=== PATIENT | female | born 1965 | race Caucasian/White ===

== ENCOUNTER 2018-02-21 12:30 | Emergency (ER) | payer MEDICARE, OTHER ==
[2018-02-21] MEDS ORDERED: Sodium Chloride 0.9% 10 ML Syringe FLUSH PRN (13:42)
[2018-02-21] MEDS ORDERED: Ondansetron 4 MG/2 ML SDV IVPUSH ONE (13:43)
[2018-02-21] MEDS ORDERED: Furosemide 20 MG/2 ML VIAL IVPUSH ONE (15:22)
--- NOTE | 2018-02-21 15:51 | EDM.PDOC ---
ED HPI GENERAL MEDICAL PROBLEM - General Chief Complaint: General Stated Complaint: LEGS AND FEET SWOLLEN Time Seen by Provider: 02/21/18 13:10 Source of Information: Reports: Patient History Limitations: Reports: No Limitations - History of Present Illness INITIAL COMMENTS - FREE TEXT/NARRATIVE: 52-year-old female presents for evaluation and treatment of swelling to the bilateral lower legs and feet. Sounds as if has been going on for several weeks but last night felt that it was significantly worse. Patient was seen in the ER in December. Sent to [facility]. She had a paracentesis done. Reports she recently had a liver biopsy done. She's not scheduled see gastroenterology at this point. She did see her primary care provider on , states her primary care provider did not address her edema. patient reports that it is hard to catch her breath due to the excessive fluid in her abdomen. She reports associated symptoms of nausea but no vomiting. No chest pain. Primary care provider is Flakita Rodriguez. - Related Data Allergies Allergy/AdvReac Type Severity Reaction Status Date / Time aspirin Allergy Cannot Verified 02/21/18 12:43 Remember ibuprofen Allergy Anaphylactic Verified 02/21/18 12:43 Shock Home Meds: Home Meds Amitriptyline [Elavil] 75 mg PO BEDTIME 01/04/18 [History] Baclofen 10 mg PO BID 01/04/18 [History] Cyclobenzaprine [Flexeril] 10 mg PO TID PRN 01/04/18 [History] Gabapentin [Neurontin] 800 mg PO TID 01/04/18 [History] Sertraline [Zoloft] 100 mg PO DAILY 01/04/18 [History] oxyCODONE 5 mg PO Q4HR PRN 01/04/18 [History] Furosemide [Lasix] 20 mg PO DAILY #7 tab 02/21/18 [Rx] Potassium Chloride 10 meq PO DAILY #7 capsule.er 02/21/18 [Rx] Rifaximin [Xifaxan] 1 tab PO BID 02/21/18 [History] amLODIPine Besylate [Amlodipine Besylate] 10 mg PO DAILY 02/21/18 [History] traMADol HCl [Tramadol HCl] 50 mg PO Q6H PRN 02/21/18 [History] Past Medical History Cardiovascular History: Reports: Hypertension Gastrointestinal History: Reports: Cirrhosis, Other (See Below) Other Gastrointestinal History: ascites 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 (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 Below) Other SCREEN PRINTING PASTER History: tubal ligation Musculoskeletal History: Reports: Other (See Below) Other Musculoskeletal History: cervical stenosis of spinal canal Psychiatric History: Reports: Depression, PTSD - Past Surgical History GI Surgical History: Reports: Abdominal paracentesis, Colonoscopy Musculoskeletal Surgical History: Reports: Other (See Below) Other Musculoskeletal Surgeries/Procedures:: ankle fx surgery Social & Family History - Family History Family Medical History: Noncontributory - Tobacco Use Smoking Status *Q: Current Some Day Smoker Years of Tobacco use: 10 Packs/Tins Daily: 0.2 - Caffeine Use Caffeine Use: Reports: Other - Recreational Drug Use Recreational Drug Use: No ED ROS GENERAL - Review of Systems Review Of Systems: See Below Respiratory: Reports: Shortness of Breath (due to asicites) Cardiovascular: Reports: Edema. Denies: Chest Pain GI/Abdominal: Reports: Abdominal Pain (increased abdominal girth), Nausea. Denies: Vomiting Musculoskeletal: Reports: Leg Pain (bilateral wiht associated swelling) Skin: Denies: Erythema ED EXAM, GENERAL - Physical Exam Exam: See Below Exam Limited By: No Limitations General Appearance: Alert, WD/WN, No Apparent Distress, Obese Respiratory/Chest: No Respiratory Distress, Lungs Clear, Normal Breath Sounds Cardiovascular: Normal Peripheral Pulses, Regular Rate, Rhythm, No Murmur Peripheral Pulses: 3+: Posterior Tibial (L), Posterior Tibial (R), Dorsalis Pedis (L), Dorsalis Pedis (R) GI/Abdominal: Normal Bowel Sounds, Soft, Other (asicites present) Extremities: Normal Capillary Refill, Pedal Edema (2+ bilateral pitting edema ) , Other (reports tenderness to light palpation to the bilteral lower legs). No : Yoly's Sign, Increased Warmth Neurological: Alert, Oriented, Normal Cognition, Normal Gait Psychiatric: Normal Affect, Normal Mood Skin Exam: Warm, Dry, Normal Color. No: Ecchymosis, Erythema EKG INTERPRETATION EKG Date: 02/21/18 Time: 13:47 Rhythm: NSR Rate (Beats/Min): 70 Union: Normal P-Wave: Present QRS: Normal ST-T: Normal QT: Prolonged EKG Interpretation Comments: Normal sinus rhythm with a rate of 70 bpm. Prolonged QT with QTC of 538. No acute changes. Reviewed by myself and Dr. Madrid. Course - Vital Signs Last Recorded V/S: Last Vital Signs Temp 99 F 02/21/18 12:30 Pulse 84 02/21/18 15:53 Resp 18 02/21/18 15:53 BP 144/73 H 02/21/18 15:53 Pulse Ox 97 02/21/18 15:53 - Orders/Labs/Meds Labs: Laboratory Tests 02/21/18 02/21/18 02/21/18 Range/Units 13:55 13:55 13:55 WBC 3.30 L (3.98-10.04) K/mm3 RBC 4.81 (3.98-5.22) M/mm3 Hgb 14.1 (11.2-15.7) gm/L Hct 42.5 (34.1-44.9) % MCV 88.4 (79.4-94.8) fl MCH 29.3 (25.6-32.2) pg MCHC 33.2 (32.2-35.5) g/dl RDW Std Deviation 50.8 H (36.4-46.3) fL Plt Count 162 L (182-369) K/mm3 MPV 9.4 (9.4-12.3) fl Neut % (Auto) 45.2 (34.0-71.1) % Lymph % (Auto) 43.0 (19.3-51.7) % Colbert % (Auto) 11.8 (4.7-12.5) % Eos % (Auto) 0 L (0.7-5.8) Baso % (Auto) 0.0 L (0.1-1.2) % Neut # (Auto) 1.49 L (1.56-6.13) K/mm3 Lymph # (Auto) 1.42 (1.18-3.74) K/mm3 Colbert # (Auto) 0.39 H (0.24-0.36) K/mm3 Eos # (Auto) 0.00 L (0.04-0.36) K/mm3 Baso # (Auto) 0.00 L (0.01-0.08) K/mm3 PT (9.5-12.1) SECONDS INR APTT (24-31) SECONDS Sodium 138 (136-145) mEq/L Potassium 3.7 (3.5-5.1) mEq/L Chloride 105 (98-107) mEq/L Carbon Dioxide 29 (21-32) mEq/L Anion Gap 7.7 (5-15) BUN 6 L (7-18) mg/dL Creatinine 0.8 (0.55-1.02) mg/dL Est Cr Clr Drug Dosing 90.90 mL/min Estimated GFR (MDRD) > 60 (>60) mL/min BUN/Creatinine Ratio 7.5 L (14-18) Glucose 132 H (74-106) mg/dL Calcium 8.8 (8.5-10.1) mg/dL Magnesium 2.1 (1.8-2.4) mg/dl Total Bilirubin 1.0 (0.2-1.0) mg/dL AST 55 H (15-37) U/L ALT 36 (14-59) U/L Alkaline Phosphatase 201 H (46-116) U/L NT-Pro-B Natriuret Pep 62 (0-125) pg/mL Total Protein 7.7 (6.4-8.2) g/dl Albumin 2.9 L (3.4-5.0) g/dl Globulin 4.8 gm/dL Albumin/Globulin Ratio 0.6 L (1-2) 02/21/18 Range/Units 13:55 WBC (3.98-10.04) K/mm3 RBC (3.98-5.22) M/mm3 Hgb (11.2-15.7) gm/L Hct (34.1-44.9) % MCV (79.4-94.8) fl MCH (25.6-32.2) pg MCHC (32.2-35.5) g/dl RDW Std Deviation (36.4-46.3) fL Plt Count (182-369) K/mm3 MPV (9.4-12.3) fl Neut % (Auto) (34.0-71.1) % Lymph % (Auto) (19.3-51.7) % Colbert % (Auto) (4.7-12.5) % Eos % (Auto) (0.7-5.8) Baso % (Auto) (0.1-1.2) % Neut # (Auto) (1.56-6.13) K/mm3 Lymph # (Auto) (1.18-3.74) K/mm3 Colbert # (Auto) (0.24-0.36) K/mm3 Eos # (Auto) (0.04-0.36) K/mm3 Baso # (Auto) (0.01-0.08) K/mm3 PT 13.9 H (9.5-12.1) SECONDS INR 1.28 APTT 36 H (24-31) SECONDS Sodium (136-145) mEq/L Potassium (3.5-5.1) mEq/L Chloride (98-107) mEq/L Carbon Dioxide (21-32) mEq/L Anion Gap (5-15) BUN (7-18) mg/dL Creatinine (0.55-1.02) mg/dL Est Cr Clr Drug Dosing mL/min Estimated GFR (MDRD) (>60) mL/min BUN/Creatinine Ratio (14-18) Glucose (74-106) mg/dL Calcium (8.5-10.1) mg/dL Magnesium (1.8-2.4) mg/dl Total Bilirubin (0.2-1.0) mg/dL AST (15-37) U/L ALT (14-59) U/L Alkaline Phosphatase (46-116) U/L NT-Pro-B Natriuret Pep (0-125) pg/mL Total Protein (6.4-8.2) g/dl Albumin (3.4-5.0) g/dl Globulin gm/dL Albumin/Globulin Ratio (1-2) Meds: Medications Discontinued Medications Generic Name Dose Route Start Last Admin Trade Name Freq PRN Reason Stop Dose Admin Furosemide 20 mg 02/21/18 15:22 02/21/18 15:32 Lasix IVPUSH 02/21/18 15:23 20 mg ONETIME ONE Administration Ondansetron HCl 4 mg 02/21/18 13:43 02/21/18 13:57 Zofran IVPUSH 02/21/18 13:44 4 mg ONETIME ONE Administration Sodium Chloride 10 ml 02/21/18 13:42 02/21/18 13:57 Saline Flush FLUSH 10 ml ASDIRECTED PRN Administration Keep Vein Open - Radiology Interpretation Free Text/Narrative:: 1 view chest x-ray shows mild congestion. Slight cardiomegaly. No acute intrathoracic process. Ultrasound of the bilateral lower legs per [facility] is negative for DVT. - Re-Assessments/Exams Free Text/Narrative Re-Assessment/Exam: 02/21/18 15:46 Reviewed the labs and imaging with the patient. Will start on low dose lasix with close follow-up in the clinic. Edema primarily felt to be more related to liver failure but she also likely has a component of heart failure. Unable to obtain BNP tonight as analyzer is down. Will discharge home. Discharge instructions as documented. Departure - Departure Time of Disposition: 15:47 Disposition: Home, Self-Care 01 Condition: Fair Clinical Impression: Edema - Discharge Information *PRESCRIPTION DRUG MONITORING PROGRAM REVIEWED*: No *COPY OF PRESCRIPTION DRUG MONITORING REPORT IN PATIENT ADELITA: No Prescriptions: Furosemide [Lasix] 20 mg PO DAILY #7 tab Potassium Chloride 10 meq PO DAILY #7 capsule.er Instructions: Edema Referrals: Nova Rodriguez NP [Primary Care Provider] - Forms: ED Department Discharge Additional Instructions: Follow-up with PCP this week for a recheck of your symptoms. Recommend seeing surgery to discuss scheduled paracentesis. Recommend Dr. Jang at [place]. Call [phone] to schedule with her. Lasix 1 tab PO daily. Potassium 1 tab PO daily. Elevate your legs as much as you are able to. Recommend compression stockings or an ice bandage to help with the edema. Please return to the ER should your symptoms change or worsen.
--- NOTE | 2018-02-22 17:00 | US ---
Bilateral lower extremity deep venous ultrasound: Duplex and color flow imaging was obtained of the right and left common femoral, proximal greater saphenous, superficial femoral, popliteal, posterior tibial and peroneal veins. Comparison: No prior venous exam. Findings: Mild subcutaneous edema is seen within the left lower extremity. This causes the left peroneal vein not to be well seen. Other veins show normal phasic flow, augmentation and compression. Impression: 1. Incidental subcutaneous edema as noted above. 2. No evidence of deep venous thrombosis within the right or left lower extremity. Diagnostic code #2 I agree with preliminary report from [facility], finalized on 02/21/18, 4:03 PM Central Time
--- NOTE | 2018-02-22 17:00 | CR ---
Chest: Portable view of the chest was obtained. Comparison: Prior chest x-ray of 01/04/18. Heart size is normal. Tortuous thoracic aorta is seen. Lung markings are minimally increased which appear stable. No acute parenchymal change is seen. Scoliosis is noted within the spine. Impression: 1. Incidental findings. Nothing acute is appreciated on portable chest x-ray. Diagnostic code #2
== END 2018-02-21 15:57 | disposition home or self-care (01) ==
LOC: JD.ED 12:30
DX: R60.9 Edema, unspecified (principal); F17.210 Nicotine dependence, cigarettes, uncomplicated; I10 Essential (primary) hypertension; F32.9 Major depressive disorder, single episode, unspecified; Z79.899 Other long term (current) drug therapy; Z88.6 Allergy status to analgesic agent
CPT/HCPCS: 36415; 71045; 80053; 83735; 83880; 85025; 85610; 85730; 93005; 93970; 96374; 96375; 99285; A9270; J2405; 93010; 99284

== ENCOUNTER 2018-04-06 13:34 | Emergency (ER) | payer MEDICARE, OTHER ==
[2018-04-06] MEDS ORDERED: Sodium Chloride 0.9% 10 ML Syringe FLUSH PRN (14:01)
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
[2018-04-06] MEDS ORDERED: Metoclopramide 10 MG/2 ML SDV IVPUSH ONE (14:15)
[2018-04-06] MEDS ORDERED: HYDROmorphone 1 MG/ML Syringe IVPUSH ONE (14:16)
[2018-04-06] MEDS ORDERED: fentaNYL 100 MCG/2 ML SDV IVPUSH ONE (14:29)
[2018-04-06] MEDS ORDERED: Midazolam 1 MG/ML 2 ML SDV IVPUSH ONE (14:29)
[2018-04-06] MEDS ORDERED: Lidocaine 1% with EPINEPHrine 1:100,000 20 ML MDV INJECT ONE (14:48)
--- NOTE | 2018-04-06 15:00 | CR ---
Chest: Portable view of the chest was obtained. Comparison: Prior chest x-ray of 02/21/18. Heart size and mediastinum are within normal limits for portable technique. Tortuous thoracic aorta is seen. Lungs are clear with no acute infiltrates. Scoliosis is noted within the spine. Impression: 1. Nothing acute is seen on portable chest x-ray. Diagnostic code #2
[2018-04-06] MEDS ORDERED: Albumin 25% 12.5 GM/50 ML BAG IV ONE (16:12)
== END 2018-04-06 17:30 | disposition home or self-care (01) ==
LOC: JD.ED 13:34
DX: K74.60 Unspecified cirrhosis of liver (principal); R18.8 Other ascites; I10 Essential (primary) hypertension; Z88.6 Allergy status to analgesic agent; F32.9 Major depressive disorder, single episode, unspecified; Z79.899 Other long term (current) drug therapy; Z98.51 Tubal ligation status
CPT/HCPCS: 36415; 49083; 71045; 80053; 83690; 83735; 83880; 85025; 85610; 85730; 86140; 96365; 96375; 99284; C1729; J1170; J2250; J2765; J3010; P9047; 49082

== ENCOUNTER 2018-04-20 17:01 | Inpatient (IN) | payer MEDICARE, OTHER ==
[2018-04-20] MEDS ORDERED: HYDROmorphone 1 MG/ML Syringe IVPUSH ONE (18:14)
[2018-04-20] MEDS ORDERED: Metoclopramide 10 MG/2 ML SDV IVPUSH ONE (18:14)
[2018-04-20] MEDS ORDERED: Dextrose 5%-0.9% NaCl 1,000 ML IV SCH (18:15)
--- NOTE | 2018-04-20 18:15 | EDM.PDOC ---
ED HPI GENERAL MEDICAL PROBLEM - General Chief Complaint: Abdominal Pain Stated Complaint: SEVERE ABDOMIN PAIN Time Seen by Provider: 04/20/18 18:11 Source of Information: Reports: Patient History Limitations: Reports: No Limitations - History of Present Illness INITIAL COMMENTS - FREE TEXT/NARRATIVE: 52-year-old female presents to the ED some abdominal pain. She particular feels a recurrent spastic-like pain in her lower abdomen. Left lower quadrant is worsen the suprapubic area. She indicates chills off and on for the last week where almost teeth would be chattering. Feels so cold she cannot warmup she states she hasn't been able to keep much down for the last 4-5 days with recurrent vomiting of bilious emesis. Has been able to keep down any of her medications. 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 She did see Dr. Reese in clinic today and had lab work done and CT of the abdomen carried out. She vomited over in x-ray department and thus sent to the ED because of her severe abdominal pain and persistent vomiting. But I did a paracentesis on this lady about 2 weeks ago in particular was April 06 with removal of a little over 6 L of abdominal fluid and she received 1 unit of albumin IV. Patient states she can't lie down because of increased abdominal pain with lying. Also makes her feel more short of breath. She states she [place] when she would've last had a bowel movement but at least 4 days. Onset: Gradual Onset Date: 04/16/18 Duration: Day(s):, Getting Worse, Waxing/Waning Location: Reports: Abdomen (Diffuse abdominal pain particularly left lower quadrant) Quality: Reports: Ache, Pressure Severity: Moderate (9 out of 10) Improves with: Reports: Rest (Not moving. However at rest she is vomiting.) Worsens with: Reports: Movement Context: Denies: Activity, Exercise, Lifting, Sick Contact, Trauma, Other Associated Symptoms: Reports: Fever/Chills, Loss of Appetite, Malaise, Nausea/ Vomiting, Shortness of Breath, Weakness (Orthopnea. Denies weakness), Other. Denies: No Other Symptoms, Confusion, Chest Pain, Cough, cough w sputum, Diaphoresis, Rash (Particularly over the last 3-4 days.), Seizure, Syncope ( Mild on exertion) Treatments IVF EMBRYOLOGIST: Reports: Other (see below) (Nothing will stay down.) Abdomen Pain Score (Numeric/FACES): 10 - Related Data Allergies Allergy/AdvReac Type Severity Reaction Status Date / Time aspirin Allergy Cannot Verified 04/20/18 17:39 Remember ibuprofen Allergy Anaphylactic Verified 04/20/18 17:39 Shock Home Meds: Home Meds Baclofen 10 mg PO BID 01/04/18 [History] Cyclobenzaprine [Flexeril] 10 mg PO TID PRN 01/04/18 [History] Gabapentin [Neurontin] 800 mg PO TID 01/04/18 [History] oxyCODONE 5 mg PO Q4HR PRN 01/04/18 [History] Rifaximin [Xifaxan] 1 tab PO BID 02/21/18 [History] amLODIPine Besylate [Amlodipine Besylate] 10 mg PO DAILY 02/21/18 [History] traMADol HCl [Tramadol HCl] 50 mg PO Q6H PRN 02/21/18 [History] Furosemide [Lasix] 40 mg PO DAILY #30 tablet 04/06/18 [Rx] Ondansetron [Zofran] 4 mg BUCCAL Q6H PRN #15 tab 04/06/18 [Rx] Spironolactone [Aldactone] 25 mg PO BID #60 tab 04/06/18 [Rx] Past Medical History Cardiovascular History: Reports: Hypertension Gastrointestinal History: Reports: Cirrhosis, Other (See Below) Other Gastrointestinal History: ascites 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 (See Below) Other NAIL 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 TEACHER History: tubal ligation Musculoskeletal History: Reports: Other (See Below) Other Musculoskeletal History: cervical stenosis of spinal canal Psychiatric History: Reports: Depression, PTSD - Past Surgical History GI Surgical History: Reports: Abdominal paracentesis, Colonoscopy, EGD Musculoskeletal Surgical History: Reports: Other (See Below) Other Musculoskeletal Surgeries/Procedures:: ankle fx surgery Social & Family History - Family History Family Medical History: Noncontributory - Tobacco Use Smoking Status *Q: Unknown Ever Smoked - Caffeine Use Caffeine Use: Reports: Other - Living Situation & Occupation Living situation: Reports: Single Occupation: Disabled ED ROS GENERAL - Review of Systems Review Of Systems: See Below Constitutional: Reports: Fever, Chills, Malaise, Weakness, Fatigue HEENT: Reports: Other Respiratory: Reports: Shortness of Breath (Dry mouth), Other (Orthopnea). Denies: Wheezing, Pleuritic Chest Pain Cardiovascular: Reports: Dyspnea on Exertion ( bilateral lower extremities mild) , Edema (Occasional), Lightheadedness. Denies: Chest Pain, Blood Pressure Problem, Claudication, Orthopnea Endocrine: Reports: Fatigue ( chronically ) GI/Abdominal: Reports: Abdominal Pain (Chronic abdominal pain particularly right upper quadrant but more recently diffuse left lower quadrant and left suprapubic area of the abdomen. Unable localize the pain. It hurts everywhere.) : Reports: Other (Not currently making any urine.) Musculoskeletal: Reports: No Symptoms Skin: Reports: Bruising (Bruises fairly easily.) Neurological: Reports: No Symptoms Psychiatric: Reports: No Symptoms Hematologic/Lymphatic: Reports: No Symptoms Immunologic: Reports: No Symptoms ED EXAM, GI/ABD - Physical Exam Exam: See Below Exam Limited By: Uncooperative General Appearance: Alert, WD/WN, Moderate Distress (He is in obvious distress with vomiting while I'm in the examining room. He is.) Eyes: Bilateral: Normal Appearance (Minimal scleral icterus.) Throat/Mouth: Other Head: Atraumatic, Normocephalic Neck: Normal Inspection, Supple, Non-Tender, Full Range of Motion. No: Lymphadenopathy (L), Lymphadenopathy (R) Respiratory/Chest: Decreased Breath Sounds Cardiovascular: Normal Peripheral Pulses, Regular Rate, Rhythm, No Gallop, No Murmur (Sounds are slightly decreased in both bases. No adventitial sounds were noted however.), No Rub GI/Abdominal Exam: Tender (Lies tenderness with guarding and rebound throughout the abdomen soft --worrisome for bacteral peritonitis ), Abnormal Bowel Sounds ( Bowel sounds are very quiet sent in all 4 quadrants.) Back Exam: Normal Inspection, Full Range of Motion. No: CVA Tenderness (L), CVA Tenderness (R) Extremities: Normal Inspection, Normal Range of Motion, Non-Tender, Pedal Edema Neurological: Alert, Oriented (2+ primarily around the ankles.), CN II-XII Intact, Normal Cognition Psychiatric: Other Skin Exam: Warm (Appears quite ill. She is afebrile at present.), Dry, Intact, Normal Color, No Rash Course - Vital Signs Last Recorded V/S: Last Vital Signs Temp 37.3 C 04/20/18 17:39 Pulse 73 04/20/18 17:39 Resp 18 04/20/18 17:39 BP 121/70 04/20/18 17:39 Pulse Ox 100 04/20/18 17:39 - Orders/Labs/Meds Orders: Active Orders 24 hr Category Date Time Status CULTURE BLOOD [BC] Stat Lab 04/20/18 18:39 Received CULTURE BLOOD [BC] Stat Lab 04/20/18 18:45 Received CULTURE BODY FLUID + SMEAR [RM] Stat Lab 04/20/18 20:55 Received GRAM STAIN [RM] Stat Lab 04/20/18 20:55 Received MISC TEST Stat Lab 04/20/18 20:55 Received Blood Culture x2 Reflex Set [OM.PC] Stat Oth 04/20/18 18:12 Ordered Labs: Laboratory Tests 04/20/18 04/20/18 04/20/18 Range/Units 18:00 18:18 18:18 WBC 7.14 (3.98-10.04) K/mm3 RBC 5.57 H (3.98-5.22) M/mm3 Hgb 16.2 H (11.2-15.7) gm/L Hct 47.2 H (34.1-44.9) % MCV 84.7 (79.4-94.8) fl MCH 29.1 (25.6-32.2) pg MCHC 34.3 (32.2-35.5) g/dl RDW Std Deviation 52.7 H (36.4-46.3) fL Plt Count 203 (182-369) K/mm3 MPV 9.3 L (9.4-12.3) fl Neutrophils % (Manual) 46 (40-60) % Band Neutrophils % 0 (0-10) % Lymphocytes % (Manual) 47 H (20-40) % Atypical Lymphs % 0 % Monocytes % (Manual) 7 (2-10) % Eosinophils % (Manual) 0 L (0.7-5.8) % Basophils % (Manual) 0 L (0.1-1.2) Platelet Estimate Adequate RBC Morph Comment Normal ESR (0-20) mm/hr PT 16.6 H (9.5-12.1) SECONDS INR 1.54 APTT 36 H (24-31) SECONDS Sodium (136-145) mEq/L Potassium (3.5-5.1) mEq/L Chloride (98-107) mEq/L Carbon Dioxide (21-32) mEq/L Anion Gap (5-15) BUN (7-18) mg/dL Creatinine (0.55-1.02) mg/dL Est Cr Clr Drug Dosing mL/min Estimated GFR (MDRD) (>60) mL/min BUN/Creatinine Ratio (14-18) Glucose (74-106) mg/dL Lactic Acid (0.4-2.0) mmol/L Calcium (8.5-10.1) mg/dL Magnesium (1.8-2.4) mg/dl Total Bilirubin (0.2-1.0) mg/dL AST (15-37) U/L ALT (14-59) U/L Alkaline Phosphatase (46-116) U/L Ammonia (11-32) umol/L C-Reactive Protein (<1.0) mg/dL NT-Pro-B Natriuret Pep (0-125) pg/mL Total Protein (6.4-8.2) g/dl Albumin (3.4-5.0) g/dl Globulin gm/dL Albumin/Globulin Ratio (1-2) Lipase (73-393) U/L Urine Color Dark yellow (Yellow) Urine Appearance Clear (Clear) Urine pH 6.0 (5.0-8.0) Ur Specific [place] 1.010 (1.005-1.030) Urine Protein 1+ H (Negative) Urine Glucose (UA) Negative (Negative) Urine Ketones Negative (Negative) Urine Occult Blood Trace-intact H (Negative) Urine Nitrite Negative (Negative) Urine Bilirubin Negative (Negative) Urine Urobilinogen 1.0 (0.2-1.0) Ur Leukocyte Esterase Negative (Negative) Urine RBC 0-5 (0-5) /hpf Urine WBC Not seen (0-5) /hpf Ur Epithelial Cells 20-30 H (0-5) /hpf Urine Bacteria Few (FEW) /hpf Urine Mucus Few (FEW) /hpf Fluid Volume ML Fluid Color Fluid Appearance Fluid WBC (0.20-0.60) k/mm*3 Fluid RBC (0.00-0.010) 10*6/uL Fluid Diff Comment 04/20/18 04/20/18 04/20/18 Range/Units 18:18 18:18 18:18 WBC (3.98-10.04) K/mm3 RBC (3.98-5.22) M/mm3 Hgb (11.2-15.7) gm/L Hct (34.1-44.9) % MCV (79.4-94.8) fl MCH (25.6-32.2) pg MCHC (32.2-35.5) g/dl RDW Std Deviation (36.4-46.3) fL Plt Count (182-369) K/mm3 MPV (9.4-12.3) fl Neutrophils % (Manual) (40-60) % Band Neutrophils % (0-10) % Lymphocytes % (Manual) (20-40) % Atypical Lymphs % % Monocytes % (Manual) (2-10) % Eosinophils % (Manual) (0.7-5.8) % Basophils % (Manual) (0.1-1.2) Platelet Estimate RBC Morph Comment ESR 51 H (0-20) mm/hr PT (9.5-12.1) SECONDS INR APTT (24-31) SECONDS Sodium 136 (136-145) mEq/L Potassium 3.0 L (3.5-5.1) mEq/L Chloride 97 L (98-107) mEq/L Carbon Dioxide 22 (21-32) mEq/L Anion Gap 20.0 H (5-15) BUN 12 (7-18) mg/dL Creatinine 1.7 H (0.55-1.02) mg/dL Est Cr Clr Drug Dosing 33.05 mL/min Estimated GFR (MDRD) 31 (>60) mL/min BUN/Creatinine Ratio 7.1 L (14-18) Glucose 114 H (74-106) mg/dL Lactic Acid (0.4-2.0) mmol/L Calcium 9.5 (8.5-10.1) mg/dL Magnesium 1.8 (1.8-2.4) mg/dl Total Bilirubin 2.7 H (0.2-1.0) mg/dL AST 93 H (15-37) U/L ALT 48 (14-59) U/L Alkaline Phosphatase 216 H (46-116) U/L Ammonia (11-32) umol/L C-Reactive Protein 3.3 H* (<1.0) mg/dL NT-Pro-B Natriuret Pep 142 H (0-125) pg/mL Total Protein 8.6 H (6.4-8.2) g/dl Albumin 3.2 L (3.4-5.0) g/dl Globulin 5.4 gm/dL Albumin/Globulin Ratio 0.6 L (1-2) Lipase 189 (73-393) U/L Urine Color (Yellow) Urine Appearance (Clear) Urine pH (5.0-8.0) Ur Specific [place] (1.005-1.030) Urine Protein (Negative) Urine Glucose (UA) (Negative) Urine Ketones (Negative) Urine Occult Blood (Negative) Urine Nitrite (Negative) Urine Bilirubin (Negative) Urine Urobilinogen (0.2-1.0) Ur Leukocyte Esterase (Negative) Urine RBC (0-5) /hpf Urine WBC (0-5) /hpf Ur Epithelial Cells (0-5) /hpf Urine Bacteria (FEW) /hpf Urine Mucus (FEW) /hpf Fluid Volume ML Fluid Color Fluid Appearance Fluid WBC (0.20-0.60) k/mm*3 Fluid RBC (0.00-0.010) 10*6/uL Fluid Diff Comment 04/20/18 04/20/18 04/20/18 Range/Units 18:39 18:45 20:55 WBC (3.98-10.04) K/mm3 RBC (3.98-5.22) M/mm3 Hgb (11.2-15.7) gm/L Hct (34.1-44.9) % MCV (79.4-94.8) fl MCH (25.6-32.2) pg MCHC (32.2-35.5) g/dl RDW Std Deviation (36.4-46.3) fL Plt Count (182-369) K/mm3 MPV (9.4-12.3) fl Neutrophils % (Manual) (40-60) % Band Neutrophils % (0-10) % Lymphocytes % (Manual) (20-40) % Atypical Lymphs % % Monocytes % (Manual) (2-10) % Eosinophils % (Manual) (0.7-5.8) % Basophils % (Manual) (0.1-1.2) Platelet Estimate RBC Morph Comment ESR (0-20) mm/hr PT (9.5-12.1) SECONDS INR APTT (24-31) SECONDS Sodium (136-145) mEq/L Potassium (3.5-5.1) mEq/L Chloride (98-107) mEq/L Carbon Dioxide (21-32) mEq/L Anion Gap (5-15) BUN (7-18) mg/dL Creatinine (0.55-1.02) mg/dL Est Cr Clr Drug Dosing mL/min Estimated GFR (MDRD) (>60) mL/min BUN/Creatinine Ratio (14-18) Glucose (74-106) mg/dL Lactic Acid 5.2 H (0.4-2.0) mmol/L Calcium (8.5-10.1) mg/dL Magnesium (1.8-2.4) mg/dl Total Bilirubin (0.2-1.0) mg/dL AST (15-37) U/L ALT (14-59) U/L Alkaline Phosphatase (46-116) U/L Ammonia 77 H (11-32) umol/L C-Reactive Protein (<1.0) mg/dL NT-Pro-B Natriuret Pep (0-125) pg/mL Total Protein (6.4-8.2) g/dl Albumin (3.4-5.0) g/dl Globulin gm/dL Albumin/Globulin Ratio (1-2) Lipase (73-393) U/L Urine Color (Yellow) Urine Appearance (Clear) Urine pH (5.0-8.0) Ur Specific [place] (1.005-1.030) Urine Protein (Negative) Urine Glucose (UA) (Negative) Urine Ketones (Negative) Urine Occult Blood (Negative) Urine Nitrite (Negative) Urine Bilirubin (Negative) Urine Urobilinogen (0.2-1.0) Ur Leukocyte Esterase (Negative) Urine RBC (0-5) /hpf Urine WBC (0-5) /hpf Ur Epithelial Cells (0-5) /hpf Urine Bacteria (FEW) /hpf Urine Mucus (FEW) /hpf Fluid Volume 22 ML Fluid Color Light yellow Fluid Appearance Clear Fluid WBC 0.16 L (0.20-0.60) k/mm*3 Fluid RBC (0.00-0.010) 10*6/uL Fluid Diff Comment Not Reportable Meds: Medications Discontinued Medications Generic Name Dose Route Start Last Admin Trade Name Freq PRN Reason Stop Dose Admin Fentanyl 100 mcg 04/20/18 19:27 04/20/18 21:12 Sublimaze IVPUSH 04/20/18 19:28 Not Given ONETIME ONE Hydromorphone HCl 1 mg 04/20/18 18:14 04/20/18 18:26 Dilaudid IVPUSH 04/20/18 18:15 1 mg ONETIME ONE Administration Dextrose/Sodium Chloride 1,000 mls @ 250 mls/hr 04/20/18 18:15 04/20/18 18:25 Dextrose 5%-Normal Saline IV 250 mls/hr ASDIRECTED TAL Administration Levofloxacin/Dextrose 750 mg/ 150 mls @ 100 mls/hr 04/20/18 20:53 04/20/18 21 :09 Premix IV 04/20/18 22:22 100 mls/hr ONETIME ONE Administration Potassium Chloride 10 meq/ 100 mls @ 100 mls/hr 04/20/18 21:38 Premix IV 04/20/18 22:37 ONETIME ONE Lidocaine/Epinephrine 20 ml 04/20/18 19:27 04/20/18 20:26 Xylocaine 1% With Epinephrine 1:100,000 INJECT 04/20/18 19:28 20 ml ONETIME ONE Administration Lidocaine/Epinephrine Confirm 04/20/18 20:34 04/20/18 21:13 Xylocaine 1% With Epinephrine 1:100,000 Administered 04/20/18 20:35 Not Given Dose 20 ml .ROUTE .STK-MED ONE Lidocaine/Epinephrine 20 ml 04/20/18 21:13 04/20/18 20:45 Xylocaine 1% With Epinephrine 1:100,000 INJECT 04/20/18 21:14 20 ml ONETIME ONE Administration Metoclopramide HCl 10 mg 04/20/18 18:14 04/20/18 18:25 Reglan IVPUSH 04/20/18 18:15 10 mg ONETIME ONE Administration Midazolam HCl 5 mg 04/20/18 19:27 04/20/18 21:10 Versed 1 Mg/Ml IVPUSH 04/20/18 19:28 Not Given ONETIME ONE Midazolam HCl Confirm 04/20/18 19:36 04/20/18 21:13 Versed 1 Mg/Ml Administered 04/20/18 19:37 Not Given Dose 6 mg .ROUTE .STK-MED ONE Midazolam HCl 4 mg 04/20/18 20:59 04/20/18 20:30 Versed 1 Mg/Ml IVPUSH 04/20/18 21:00 2 mg ONETIME ONE Administration - Radiology Interpretation Free Text/Narrative:: 52-year-old female presents to the ED due to recurrent nausea vomiting with a history of fever and chills over the last 3-4 days. Diffuse abdominal pain. Her care provider in the clinic today had lab work done as well as a CT of the abdomen and pelvis performed. I have yet to see these results. She was sent over from the x-ray department because she kept on vomiting in the department. Anything down for 3-4 days. She has known cirrhosis of the liver probably from autoimmune origin. Associated ascites. He had paracentesis 2 weeks ago April 06. 6 L were removed at that time by me. Examination is worrisome for peritonitis from bacterial origin. Plan septic workup to be carried out. She'll be treated with IV D5 normal saline at 250 mils per hour. We'll give her Dilaudid 1 mg with Reglan 10 mg IV for pain and nausea relief. - Re-Assessments/Exams Free Text/Narrative Re-Assessment/Exam: 04/20/18 19:00: I reviewed the CT scan of her abdomen done earlier today. It does reveal a moderate sized left-sided pleural effusion. Cardiac silhouette is otherwise normal. Right lung base appears clear. The abdomen shows a large amount of ascites surrounding the liver and the spleen and a large amount of fluid within the pelvis compatible with diffuse ascites. The liver is cirrhotic in appearance--small and nodular. Spleen size is normal. No focal parenchymal abdomen maladies appreciated within the liver. Gallbladder contains a small calcification about with small calcified gallstone. Adrenal glands show no nodule. Kidneys show symmetric contrast enhancement without hydronephrosis or mass effect. Pancreas shows no discrete abnormality aorta shows no aneurysm. Appendix is difficult to visualize due to ascites. No enlarged tubular structure seen within the right lower abdomen no discrete pelvic abdomen maladies seen other than ascites. Images show contrast excretion into both ureters as well as contrast within the bladder.. Due to concerns about bacterial peritonitis I will perform a paracentesis to relieve some of her abdominal pain as well as provide a sample for culture and Gram stain. 04/20/18 19:26 Labs reveal a normal white count at 7.14 with 46% neutrophils and no band cells. Hemoglobin is 16.2 with hematocrit of 47.2. Bili count is 203 ,000. PT is 16.6 with an INR 1.54. She is thus auto anticoagulated. PTT is slightly elevated at 36. Sodium is 136. Potassium is low at 3.0. Chloride is 97 with a bicarbonate 22. Anion gap is elevated at 20.0. BUN is 12 with a creatinine of 1.7. Glucose is 114. Lactic acid is markedly elevated at 5.2. Calcium is 9.5. Magnesium is 1.8. Total bilirubin elevated at 2.7. AST is 93 with a nail T of 48. Alkaline phosphatase is 216. C-reactive protein is 3.3. BNP is 142. Total protein is 8.6 with an albumin fraction of 3.2. Lipase is 189. Urine analysis shows 1+ proteinuria trace of occult blood negative leukocyte esterase and 20-30 epithelial cells no sign of urinary tract infection. Patient has signed consent for paracentesis. This will be performed with a little bit of conscious sedation using Versed 2 mg and fentanyl 50 g IV. 04/20/18 21:15: Versed T's is performed on third attempt. I had no luck in obtaining paracentesis fluid from the right lateral lower abdominal approach. Therefore ended up using the midline 2 inches above the pubic symphysis by ultrasound guidance to obtain over 5 L of clear aria ascites fluid. Fluid was sent for cultures and Gram stain and serum proteins. And tolerated the procedure well under conscious sedation using 3 mg of Versed in total and 50 g of fentanyl. She will now have Levaquin 750 mg infused IV and I would suggest vancomycin IV after this. Will have to await cultures and Gram stain on the paracentesis fluid to rule out bacterial peritonitis. This discussed with Dr. Salcedo crm consultant hospitalist and she will admit the patient to the med surgery floor on telemetry. Departure - Departure Time of Disposition: 21:45 Disposition: Admitted As Inpatient 65 Condition: Fair Clinical Impression: Pleural effusion due to another disorder, Elevated INR (international normalized ratio), Hypokalemia, Metabolic acidosis with increased anion gap and accumulation of organic acids, Lactic acidosis, Intractable nausea and vomiting Abdominal pain Qualifiers: Abdominal location: generalized Qualified Code(s): R10.84 - Generalized abdominal pain Cirrhosis of liver with ascites Qualifiers: Hepatic cirrhosis type: unspecified hepatic cirrhosis Qualified Code(s): K74.60 - Unspecified cirrhosis of liver - Discharge Information *PRESCRIPTION DRUG MONITORING PROGRAM REVIEWED*: Not Applicable *COPY OF PRESCRIPTION DRUG MONITORING REPORT IN PATIENT ADELITA: Not Applicable - My Orders Last 24 Hours: My Active Orders 04/20/18 18:12 Blood Culture x2 Reflex Set [OM.PC] Stat 04/20/18 18:39 CULTURE BLOOD [BC] Stat 04/20/18 18:45 CULTURE BLOOD [BC] Stat 04/20/18 20:55 CULTURE BODY FLUID + SMEAR [RM] Stat GRAM STAIN [RM] Stat MISC TEST Stat - Assessment/Plan Last 24 Hours: My Active Orders 04/20/18 18:12 Blood Culture x2 Reflex Set [OM.PC] Stat 04/20/18 18:39 CULTURE BLOOD [BC] Stat 04/20/18 18:45 CULTURE BLOOD [BC] Stat 04/20/18 20:55 CULTURE BODY FLUID + SMEAR [RM] Stat GRAM STAIN [RM] Stat MISC TEST Stat Paracentesis - Paracentesis Paracentesis Indication: ascites Location: RLQ Skin prep: CDC/MBT Guidelines, Sterile Drapes, Betadine, Chlorhexidine Ultrasound guided: Yes Local anesthesia: other Local anesthesia volume: 20cc (Lidocaine 1% with epinephrine) Number of Attempts: Other: (3. Encountered problems introducing the catheter be in the right lower quadrant into the ascites fluid as it was not long enough to reach through her large abdominal wall. Therefore under ultrasound guidance reached a ascites in the midline above the pubic symphysis.) Device Used: 8 Fr kit device Fluid: yellow (Aria and clear) Aspirated volume (mls): 5,000 Fluids sent: gram stain and culture, cell count, protein, glucose Complications: No Complication Description: Patient tolerated the procedure very well.
[2018-04-20] MEDS ORDERED: fentaNYL 100 MCG/2 ML SDV IVPUSH ONE (19:27)
[2018-04-20] MEDS ORDERED: Lidocaine 1% with EPINEPHrine 1:100,000 20 ML MDV INJECT ONE ×2 (19:27→21:13)
[2018-04-20] MEDS: Midazolam 1 MG/ML 2 ML SDV IVPUSH ONE ×2 (20:07→20:30)
[2018-04-20] MEDS: Midazolam 1 MG/ML 2 ML SDV ONE ×2 (20:07→21:13)
[2018-04-20] MEDS: Midazolam 1 MG/ML 5 ML SDV IVPUSH ONE ×2 (20:07→21:10)
[2018-04-20] MEDS ORDERED: Lidocaine 1% with EPINEPHrine 1:100,000 20 ML MDV ONE (20:34)
[2018-04-20] MEDS ORDERED: Levofloxacin/Dextrose 5%-Water 750 MG in Premix Bag 1 BAG IV ONE (20:53)
[2018-04-20] MEDS ORDERED: Potassium Chloride 10 MEQ in Premix Bag 1 BAG IV ONE (21:38)
[2018-04-20] MEDS ORDERED: HYDROmorphone 0.5 MG/0.5 ML Syringe IVPUSH PRN (22:26)
[2018-04-21] MEDS ORDERED: Potassium Chloride 10 MEQ in Premix Bag 1 BAG IV ONE (01:30)
[2018-04-21] MEDS: HYDROmorphone 1 MG/ML Syringe IVPUSH PRN ×3 (01:36→15:15)
--- NOTE | 2018-04-21 07:29 | PCM.HP ---
H&P History of Present Illness - General Date of Service: 04/21/18 Admit Problem/Dx: Admission Diagnosis/Problem Admission Diagnosis/Problem Cirrhosis of liver with ascites Source of Information: Patient, Provider - History of Present Illness Initial Comments - Free Text/Narative: 52 year old female with reportedly autoimmune related liver disease, has required paracentesis recently including prior to admission. Last night she had 6 liters of aria fluid removed which relieved her abdominal pain.. The patient is presumptively being treated for SBP. In the ED, she received Levoquin 750 mg IV. The patient has been sen at least once by Dr Griffin in [place] in the GI clinic. She is a recent transplant from [place], her provider prior to relocation will need to be clarified. She had a CT of the abdomen/pelvis ordered by Dr Reese whom she saw on the day of her ED visit after the results were available. The patient will be admitted to [place], and is a full code. The possibilty of her being listed for a liver transplant was discussed with the patient by the ED provider. Symptom Onset Date: 04/15/18 Duration of Symptoms: Reports: Day(s):, Getting Worse Location: Reports: Abdomen Quality: Reports: Same as Previous Episode Severity: Moderate Improves with: Reports: Medication Worsens with: Reports: None Associated Symptoms: Reports: Loss of Appetite, Nausea/Vomiting, Shortness of Breath, Weakness Abdomen Pain Score (Numeric/FACES): 10 - Related Data Allergies/Adverse Reactions: Allergies Allergy/AdvReac Type Severity Reaction Status Date / Time aspirin Allergy Cannot Verified 04/21/18 03:32 Remember ibuprofen Allergy Anaphylactic Verified 04/21/18 03:32 Shock Home Medications: Home Meds Baclofen 10 mg PO BID 01/04/18 [History] Cyclobenzaprine [Flexeril] 10 mg PO TID PRN 01/04/18 [History] Gabapentin [Neurontin] 800 mg PO TID 01/04/18 [History] oxyCODONE 5 mg PO Q4HR PRN 01/04/18 [History] Rifaximin [Xifaxan] 1 tab PO BID 02/21/18 [History] amLODIPine Besylate [Amlodipine Besylate] 10 mg PO DAILY 02/21/18 [History] traMADol HCl [Tramadol HCl] 50 mg PO Q6H PRN 02/21/18 [History] Furosemide [Lasix] 40 mg PO DAILY #30 tablet 04/06/18 [Rx] Ondansetron [Zofran] 4 mg BUCCAL Q6H PRN #15 tab 04/06/18 [Rx] Spironolactone [Aldactone] 25 mg PO BID #60 tab 04/06/18 [Rx] Past Medical History HEENT History: Reports: None Cardiovascular History: Reports: Hypertension Respiratory History: Reports: None Gastrointestinal History: Reports: Cirrhosis, Other (See Below) Other Gastrointestinal History: ascites S[employer]ED [employer] History: Reports: , Other (See Below) Other OB/BYN History: tubal ligation Musculoskeletal History: Reports: Other (See Below) Other Musculoskeletal History: cervical stenosis of spinal canal Psychiatric History: Reports: Depression, PTSD Endocrine/Metabolic History: Reports: Obesity/BMI 30+ Dermatologic History: Reports: Other (See Below) Other Dermatologic History: very dry skin - Past Surgical History HEENT Surgical History: Reports: None Cardiovascular Surgical History: Reports: None Respiratory Surgical History: Reports: None GI Surgical History: Reports: Abdominal paracentesis, Colonoscopy, EGD Endocrine Surgical History: Reports: None Neurological Surgical History: Reports: None Musculoskeletal Surgical History: Reports: Other (See Below) Other Musculoskeletal Surgeries/Procedures:: ankle fx surgery Social & Family History - Family History Family Medical History: Noncontributory - Tobacco Use Smoking Status *Q: Former Smoker Years of Tobacco use: 5 Packs/Tins Daily: 1 Used Tobacco, but Quit: No Second Hand Smoke Exposure: No - Caffeine Use Caffeine Use: Reports: None - Recreational Drug Use Recreational Drug Use: No - Living Situation & Occupation Living situation: Reports: Single Occupation: Disabled H&P Review of Systems - Review of Systems: Review Of Systems: See Below General: Reports: Malaise, Weakness, Fatigue, Decreased Appetite Pulmonary: Reports: Shortness of Breath Cardiovascular: Reports: Lightheadedness Gastrointestinal: Reports: Abdominal Pain, Decreased Appetite, Nausea Genitourinary: Reports: No Symptoms Musculoskeletal: Reports: No Symptoms Skin: Reports: No Symptoms Psychiatric: Reports: No Symptoms Neurological: Reports: No Symptoms Hematologic/Lymphatic: Reports: No Symptoms Immunologic: Reports: No Symptoms Exam - Exam Exam: See Below - Vital Signs Vital Signs: Last Vital Signs Temp 37.1 C 04/21/18 01:31 Pulse 81 04/21/18 01:31 Resp 16 04/21/18 01:31 BP 127/61 04/21/18 01:31 Pulse Ox 92 L 04/21/18 01:31 Weight: 97.568 kg - Exam Quality Assessment: DVT Prophylaxis General: Alert, Oriented, Cooperative HEENT: Conjunctiva Clear, Nares Patent, Normal Nasal Septum, Pupils Equal, Pupils Reactive, PERRLA Neck: Trachea Midline Lungs: Clear to Auscultation, Normal Respiratory Effort Cardiovascular: Regular Rate, Regular Rhythm GI/Abdominal Exam: Soft, No Distention, Guarding (no), Rigid (no), Rebound (no) , Tender, Abnormal Bowel Sounds (Female) Exam: Deferred Rectal (Female) Exam: Deferred Back Exam: Normal Inspection Extremities: Normal Inspection, Non-Tender, Normal Capillary Refill Skin: Warm Neurological: Cranial Nerves Intact Neuro Extensive - Mental Status: Alert, Oriented x3, Normal Mood/Affect, Normal Cognition, Memory Intact - Patient Data Lab Results Last 24 hrs: Laboratory Results - last 24 hr 04/20/18 04/20/18 04/20/18 Range/Units 18:00 18:18 18:18 WBC 7.14 (3.98-10.04) K/mm3 RBC 5.57 H (3.98-5.22) M/mm3 Hgb 16.2 H (11.2-15.7) gm/L Hct 47.2 H (34.1-44.9) % MCV 84.7 (79.4-94.8) fl MCH 29.1 (25.6-32.2) pg MCHC 34.3 (32.2-35.5) g/dl RDW Std Deviation 52.7 H (36.4-46.3) fL Plt Count 203 (182-369) K/mm3 MPV 9.3 L (9.4-12.3) fl Neutrophils % (Manual) 46 (40-60) % Band Neutrophils % 0 (0-10) % Lymphocytes % (Manual) 47 H (20-40) % Atypical Lymphs % 0 % Monocytes % (Manual) 7 (2-10) % Eosinophils % (Manual) 0 L (0.7-5.8) % Basophils % (Manual) 0 L (0.1-1.2) Platelet Estimate Adequate RBC Morph Comment Normal ESR (0-20) mm/hr PT 16.6 H (9.5-12.1) SECONDS INR 1.54 APTT 36 H (24-31) SECONDS Sodium (136-145) mEq/L Potassium (3.5-5.1) mEq/L Chloride (98-107) mEq/L Carbon Dioxide (21-32) mEq/L Anion Gap (5-15) BUN (7-18) mg/dL Creatinine (0.55-1.02) mg/dL Est Cr Clr Drug Dosing mL/min Estimated GFR (MDRD) (>60) mL/min BUN/Creatinine Ratio (14-18) Glucose (74-106) mg/dL Lactic Acid (0.4-2.0) mmol/L Calcium (8.5-10.1) mg/dL Magnesium (1.8-2.4) mg/dl Total Bilirubin (0.2-1.0) mg/dL AST (15-37) U/L ALT (14-59) U/L Alkaline Phosphatase (46-116) U/L Ammonia (11-32) umol/L C-Reactive Protein (<1.0) mg/dL NT-Pro-B Natriuret Pep (0-125) pg/mL Total Protein (6.4-8.2) g/dl Albumin (3.4-5.0) g/dl Globulin gm/dL Albumin/Globulin Ratio (1-2) Lipase (73-393) U/L Urine Color Dark yellow (Yellow) Urine Appearance Clear (Clear) Urine pH 6.0 (5.0-8.0) Ur Specific [place] 1.010 (1.005-1.030) Urine Protein 1+ H (Negative) Urine Glucose (UA) Negative (Negative) Urine Ketones Negative (Negative) Urine Occult Blood Trace-intact H (Negative) Urine Nitrite Negative (Negative) Urine Bilirubin Negative (Negative) Urine Urobilinogen 1.0 (0.2-1.0) Ur Leukocyte Esterase Negative (Negative) Urine RBC 0-5 (0-5) /hpf Urine WBC Not seen (0-5) /hpf Ur Epithelial Cells 20-30 H (0-5) /hpf Urine Bacteria Few (FEW) /hpf Urine Mucus Few (FEW) /hpf Fluid Volume ML Fluid Color Fluid Appearance Fluid WBC (0.20-0.60) k/mm*3 Fluid RBC (0.00-0.010) 10*6/uL Fluid Diff Comment 04/20/18 04/20/18 04/20/18 Range/Units 18:18 18:18 18:18 WBC (3.98-10.04) K/mm3 RBC (3.98-5.22) M/mm3 Hgb (11.2-15.7) gm/L Hct (34.1-44.9) % MCV (79.4-94.8) fl MCH (25.6-32.2) pg MCHC (32.2-35.5) g/dl RDW Std Deviation (36.4-46.3) fL Plt Count (182-369) K/mm3 MPV (9.4-12.3) fl Neutrophils % (Manual) (40-60) % Band Neutrophils % (0-10) % Lymphocytes % (Manual) (20-40) % Atypical Lymphs % % Monocytes % (Manual) (2-10) % Eosinophils % (Manual) (0.7-5.8) % Basophils % (Manual) (0.1-1.2) Platelet Estimate RBC Morph Comment ESR 51 H (0-20) mm/hr PT (9.5-12.1) SECONDS INR APTT (24-31) SECONDS Sodium 136 (136-145) mEq/L Potassium 3.0 L (3.5-5.1) mEq/L Chloride 97 L (98-107) mEq/L Carbon Dioxide 22 (21-32) mEq/L Anion Gap 20.0 H (5-15) BUN 12 (7-18) mg/dL Creatinine 1.7 H (0.55-1.02) mg/dL Est Cr Clr Drug Dosing 33.05 mL/min Estimated GFR (MDRD) 31 (>60) mL/min BUN/Creatinine Ratio 7.1 L (14-18) Glucose 114 H (74-106) mg/dL Lactic Acid (0.4-2.0) mmol/L Calcium 9.5 (8.5-10.1) mg/dL Magnesium 1.8 (1.8-2.4) mg/dl Total Bilirubin 2.7 H (0.2-1.0) mg/dL AST 93 H (15-37) U/L ALT 48 (14-59) U/L Alkaline Phosphatase 216 H (46-116) U/L Ammonia (11-32) umol/L C-Reactive Protein 3.3 H* (<1.0) mg/dL NT-Pro-B Natriuret Pep 142 H (0-125) pg/mL Total Protein 8.6 H (6.4-8.2) g/dl Albumin 3.2 L (3.4-5.0) g/dl Globulin 5.4 gm/dL Albumin/Globulin Ratio 0.6 L (1-2) Lipase 189 (73-393) U/L Urine Color (Yellow) Urine Appearance (Clear) Urine pH (5.0-8.0) Ur Specific [place] (1.005-1.030) Urine Protein (Negative) Urine Glucose (UA) (Negative) Urine Ketones (Negative) Urine Occult Blood (Negative) Urine Nitrite (Negative) Urine Bilirubin (Negative) Urine Urobilinogen (0.2-1.0) Ur Leukocyte Esterase (Negative) Urine RBC (0-5) /hpf Urine WBC (0-5) /hpf Ur Epithelial Cells (0-5) /hpf Urine Bacteria (FEW) /hpf Urine Mucus (FEW) /hpf Fluid Volume ML Fluid Color Fluid Appearance Fluid WBC (0.20-0.60) k/mm*3 Fluid RBC (0.00-0.010) 10*6/uL Fluid Diff Comment 04/20/18 04/20/18 04/20/18 Range/Units 18:39 18:45 20:55 WBC (3.98-10.04) K/mm3 RBC (3.98-5.22) M/mm3 Hgb (11.2-15.7) gm/L Hct (34.1-44.9) % MCV (79.4-94.8) fl MCH (25.6-32.2) pg MCHC (32.2-35.5) g/dl RDW Std Deviation (36.4-46.3) fL Plt Count (182-369) K/mm3 MPV (9.4-12.3) fl Neutrophils % (Manual) (40-60) % Band Neutrophils % (0-10) % Lymphocytes % (Manual) (20-40) % Atypical Lymphs % % Monocytes % (Manual) (2-10) % Eosinophils % (Manual) (0.7-5.8) % Basophils % (Manual) (0.1-1.2) Platelet Estimate RBC Morph Comment ESR (0-20) mm/hr PT (9.5-12.1) SECONDS INR APTT (24-31) SECONDS Sodium (136-145) mEq/L Potassium (3.5-5.1) mEq/L Chloride (98-107) mEq/L Carbon Dioxide (21-32) mEq/L Anion Gap (5-15) BUN (7-18) mg/dL Creatinine (0.55-1.02) mg/dL Est Cr Clr Drug Dosing mL/min Estimated GFR (MDRD) (>60) mL/min BUN/Creatinine Ratio (14-18) Glucose (74-106) mg/dL Lactic Acid 5.2 H (0.4-2.0) mmol/L Calcium (8.5-10.1) mg/dL Magnesium (1.8-2.4) mg/dl Total Bilirubin (0.2-1.0) mg/dL AST (15-37) U/L ALT (14-59) U/L Alkaline Phosphatase (46-116) U/L Ammonia 77 H (11-32) umol/L C-Reactive Protein (<1.0) mg/dL NT-Pro-B Natriuret Pep (0-125) pg/mL Total Protein (6.4-8.2) g/dl Albumin (3.4-5.0) g/dl Globulin gm/dL Albumin/Globulin Ratio (1-2) Lipase (73-393) U/L Urine Color (Yellow) Urine Appearance (Clear) Urine pH (5.0-8.0) Ur Specific [place] (1.005-1.030) Urine Protein (Negative) Urine Glucose (UA) (Negative) Urine Ketones (Negative) Urine Occult Blood (Negative) Urine Nitrite (Negative) Urine Bilirubin (Negative) Urine Urobilinogen (0.2-1.0) Ur Leukocyte Esterase (Negative) Urine RBC (0-5) /hpf Urine WBC (0-5) /hpf Ur Epithelial Cells (0-5) /hpf Urine Bacteria (FEW) /hpf Urine Mucus (FEW) /hpf Fluid Volume 22 ML Fluid Color Light yellow Fluid Appearance Clear Fluid WBC 0.16 L (0.20-0.60) k/mm*3 Fluid RBC (0.00-0.010) 10*6/uL Fluid Diff Comment Not Reportable 04/21/18 Range/Units 01:10 WBC (3.98-10.04) K/mm3 RBC (3.98-5.22) M/mm3 Hgb (11.2-15.7) gm/L Hct (34.1-44.9) % MCV (79.4-94.8) fl MCH (25.6-32.2) pg MCHC (32.2-35.5) g/dl RDW Std Deviation (36.4-46.3) fL Plt Count (182-369) K/mm3 MPV (9.4-12.3) fl Neutrophils % (Manual) (40-60) % Band Neutrophils % (0-10) % Lymphocytes % (Manual) (20-40) % Atypical Lymphs % % Monocytes % (Manual) (2-10) % Eosinophils % (Manual) (0.7-5.8) % Basophils % (Manual) (0.1-1.2) Platelet Estimate RBC Morph Comment ESR (0-20) mm/hr PT (9.5-12.1) SECONDS INR APTT (24-31) SECONDS Sodium (136-145) mEq/L Potassium (3.5-5.1) mEq/L Chloride (98-107) mEq/L Carbon Dioxide (21-32) mEq/L Anion Gap (5-15) BUN (7-18) mg/dL Creatinine (0.55-1.02) mg/dL Est Cr Clr Drug Dosing mL/min Estimated GFR (MDRD) (>60) mL/min BUN/Creatinine Ratio (14-18) Glucose (74-106) mg/dL Lactic Acid 3.4 H (0.4-2.0) mmol/L Calcium (8.5-10.1) mg/dL Magnesium (1.8-2.4) mg/dl Total Bilirubin (0.2-1.0) mg/dL AST (15-37) U/L ALT (14-59) U/L Alkaline Phosphatase (46-116) U/L Ammonia (11-32) umol/L C-Reactive Protein (<1.0) mg/dL NT-Pro-B Natriuret Pep (0-125) pg/mL Total Protein (6.4-8.2) g/dl Albumin (3.4-5.0) g/dl Globulin gm/dL Albumin/Globulin Ratio (1-2) Lipase (73-393) U/L Urine Color (Yellow) Urine Appearance (Clear) Urine pH (5.0-8.0) Ur Specific [place] (1.005-1.030) Urine Protein (Negative) Urine Glucose (UA) (Negative) Urine Ketones (Negative) Urine Occult Blood (Negative) Urine Nitrite (Negative) Urine Bilirubin (Negative) Urine Urobilinogen (0.2-1.0) Ur Leukocyte Esterase (Negative) Urine RBC (0-5) /hpf Urine WBC (0-5) /hpf Ur Epithelial Cells (0-5) /hpf Urine Bacteria (FEW) /hpf Urine Mucus (FEW) /hpf Fluid Volume ML Fluid Color Fluid Appearance Fluid WBC (0.20-0.60) k/mm*3 Fluid RBC (0.00-0.010) 10*6/uL Fluid Diff Comment Result Diagrams: 04/21/18 05:37 04/21/18 05:37 Humberto Results Last 24 hrs: Microbiology 04/20/18 20:55 Gram Stain - Final Abdominal Fluid - Aspirate Problem List Initiated/Reviewed/Updated: Yes Orders Last 24hrs: Active Orders 24 hr Category Date Time Status Admission Status [Patient Status] [ADT] Routine ADT 04/20/18 21:45 Active Up ad Argenis [RC] ASDIRECTED Care 04/20/18 22:33 Active Clear Liquid Diet [DIET] Diet 04/21/18 Breakfast Active BASIC METABOLIC PANEL,BMP [CHEM] Routine Lab 04/21/18 05:37 Received CBC WITH MANUAL DIFF [HEME] Routine Lab 04/21/18 05:37 Received CRP [C-REACTIVE PROTEIN] [CHEM] Routine Lab 04/21/18 05:37 Received CULTURE BLOOD [BC] Stat Lab 04/20/18 18:39 Received CULTURE BLOOD [BC] Stat Lab 04/20/18 18:45 Received CULTURE BODY FLUID + SMEAR [RM] Stat Lab 04/20/18 20:55 Received MG [MAGNESIUM] [CHEM] Routine Lab 04/21/18 05:37 Received MISC TEST Stat Lab 04/20/18 20:55 Received Dextrose 5%-0.9% NaCl [Dextrose 5%-Normal Saline] 1,000 Med 03/11/19 18:15 Active ml IV ASDIRECTED HYDROmorphone [Dilaudid] Med 04/21/18 01:30 Active 0.5 mg IVPUSH Q4H PRN Levofloxacin/Dextrose 5%-Water [Levaquin in D5W 750 MG/ Med 04/22/18 19:00 Active 150 ML] 750 mg Premix Bag 1 bag IV Q48H Ondansetron [Zofran] Med 04/20/18 22:25 Active 4 mg IVPUSH Q8H PRN Blood Culture x2 Reflex Set [OM.PC] Stat Oth 04/20/18 18:12 Ordered Code Status [Resuscitation Status] Routine Resus Stat 04/20/18 22:33 Ordered Medication Orders Hydromorphone HCl (Dilaudid) 0.5 mg IVPUSH Q4H PRN PRN Reason: Pain Last Admin: 04/21/18 01:36 Dose: 0.5 mg Dextrose/Sodium Chloride (Dextrose 5%-Normal Saline) 1,000 mls @ 250 mls/hr IV ASDIRECTED TAL Last Admin: 04/20/18 18:25 Dose: 250 mls/hr Levofloxacin/Dextrose 750 mg/ (Premix) 150 mls @ 100 mls/hr IV Q48H TAL Ondansetron HCl (Zofran) 4 mg IVPUSH Q8H PRN PRN Reason: Nausea Assessment/Plan Comment:: Impression: Liver cirrhosis, NOS S/P paracentesis with abdominal pain Query SBP, received Levoquin in the ED --->ascitic fluid results--pending Pleural effusion Chronic PTSD Depression Spinal stenosis, cervical Plan: Cefotaxime/Flagyl IVF Pain meds Home meds AXR/CXR--04/21/18. Daily Labs Consult PT/OT/CM DVT/GI prophylaxis GI follow up after DC with Dr Griffin, query transplant work Need EMR from [place] provider.
[2018-04-21] MEDS ORDERED: metroNIDAZOLE/Normal Saline 500 MG in Premix Bag 1 BAG IV SCH (08:30)
[2018-04-21] MEDS ORDERED: Cefotaxime 2 GM in Sodium Chloride 0.9% 50 ML IV SCH (09:00)
[2018-04-21] MEDS ORDERED: Furosemide 20 MG/2 ML VIAL IVPUSH SCH (09:00)
[2018-04-21] MEDS ORDERED: Potassium Chloride 20 MEQ Tab.ER PO SCH (09:00)
[2018-04-21] MEDS ORDERED: Spironolactone 25 MG Tab PO SCH (09:00)
[2018-04-21] MEDS: Metoclopramide 10 MG/2 ML SDV IVPUSH PRN (09:34)
[2018-04-21] MEDS: Rifaximin 550 MG Tab PO SCH ×2 (10:40→20:26)
[2018-04-21] MEDS: Gabapentin 100 MG Cap PO SCH ×3 (10:41→20:25)
[2018-04-21] MEDS: Gabapentin 600 MG Tab PO SCH ×3 (10:41→20:25)
[2018-04-21] MEDS: Baclofen 10 MG Tab PO SCH ×2 (10:42→20:27)
--- NOTE | 2018-04-21 10:42 | CR ---
Abdomen: Supine and upright views of the abdomen were obtained. Comparison: Previous abdominal and pelvic CT study of 04/20/18. Contrast is noted within the colon from recent CT exam. Bowel gas pattern is unremarkable. Small amount of contrast is also noted within the bladder. Scoliosis is noted within the spine. Haziness within the abdomen is seen compatible with ascites. Left-sided pleural effusion is noted. No free air is seen. Impression: 1. Findings as noted above. Diagnostic code #3
--- NOTE | 2018-04-21 10:42 | CR ---
Chest: Two views of the chest were obtained. Comparison: Prior chest x-ray of 04/06/18. Left sided pleural effusion is seen. Lungs otherwise are clear. Heart size and mediastinum are normal. Scoliosis is noted within the spine. Impression: 1. Left-sided pleural effusion. Nothing acute is otherwise seen. Diagnostic code #3
[2018-04-21] MEDS: metroNIDAZOLE/Normal Saline 500 MG in Premix Bag 1 BAG IV SCH ×2 (10:44→18:21)
--- NOTE | 2018-04-21 13:03 | PCM.SN ---
- Free Text/Narrative Note: Briefly seen and examined patient at bedside. She feels better this AM. Discussed abnormal test results, labs, and treatment plan. We also went over her underling moderately large left sided pleural effusion which possibly relate to her acute liver failure. Offered therapeutic thoracentesis after discussing risks and benefits with her. She agreed with the plan and we will perform it this afternoon. Also microbiology called to inform me 1/3 bottles of her blood culture is pos GPC. Suspect this is likely contamination but she has gotten Levaquin IV x1 in ED. Currently, she getting Flagyl IV Q8H. We will start her on Cefotaxime 2 gram Q8H as the KESHIA for SBP but if hospital does not carry it we will subs it with Rocephin 2 grams daily for 5 days. Patient has seen ADAMARIS Freedman in [place] and she underwent liver biopsy. Plan: IS, 2D echo for baseline, ambulated as tolerated, Dietary consult and thoracentesis this afternoon. Hgb is 13; Platelet is 143K; no active bleeding. INRs have been 1.5 and w/o encephalopathy-no need for Vit K at this time. But given her acute stage and non mobile status she is at increased risk for blood clot. We will cover her for short acting anticoagulant.
[2018-04-21] MEDS ORDERED: LORazepam 2 MG/ML SDV ONE (15:29)
[2018-04-21] MEDS ORDERED: LORazepam 2 MG/ML SDV IVPUSH ONE (15:31)
[2018-04-21] MEDS ORDERED: Lidocaine 1% 50 ML MDV ONE (15:36)
--- NOTE | 2018-04-21 16:05 | PCM.PRNOTE ---
- Free Text/Narrative Note: Therapeutic Thoracentesis DATE OF PROCEDURE: 04/21/2018 PREOPERATIVE DIAGNOSIS: Moderately Large Left Sided Pleural Effusion POSTOPERATIVE DIAGNOSIS: Moderately Large Left Sided Pleural Effusion PROCEDURE PERFORMED: U/S Guided Therapeutic Left Sided Thoracentesis SURGEON: Nikki Cummins DO DESCRIPTION OF PROCEDURE: After informed consent was obtained, signed, the patient had ultrasound localization in the left hemithorax. The patient was sterilely prepped and topical lidocaine was induced. Stab incision was made and a thoracentesis catheter was inserted. Unfortunately, first attempt yielded nothing. Therefore another minute stab incision was made just below the initial incision and a new catheter was introduced. This time a total of 855 mL of clear straw colored pleural fluid was obtained without difficulty. Estimated Blood Loss: Very minimal The patient tolerated the procedure well w/o any complications. Postprocedure chest x-ray is pending.
[2018-04-21] MEDS: Potassium Chloride 20 MEQ Tab.ER PO SCH ×2 (16:20→20:28)
[2018-04-21] MEDS ORDERED: Magnesium Hydroxide 400 MG/5 ML Susp 30 ML Cup PO ONE (16:32)
[2018-04-21] MEDS ORDERED: cefTRIAXone 2 GM in Sodium Chloride 0.9% 100 ML IV ONE ×2 (17:13→17:30)
[2018-04-21] MEDS: Furosemide 20 MG/2 ML VIAL IVPUSH SCH (17:36)
[2018-04-21] MEDS: Heparin Sodium 5,000 Units/ML Vial SUBCUT SCH (20:23)
[2018-04-21] MEDS: Spironolactone 25 MG Tab PO SCH (20:24)
[2018-04-21] MEDS: Multivitamins,Therapeutic Tab PO SCH (20:25)
[2018-04-21] MEDS: Folic Acid 1 MG Tab PO SCH (20:27)
[2018-04-21] MEDS: Famotidine 20 MG Tab PO SCH (20:27)
[2018-04-21] MEDS: Thiamine 100 MG Tab PO SCH (20:28)
[2018-04-21] MEDS ORDERED: Levofloxacin/Dextrose 5%-Water 750 MG in Premix Bag 1 BAG IV SCH (21:00)
[2018-04-21] MEDS ORDERED: Temazepam 7.5 MG Cap PO PRN (21:00)
[2018-04-22] MEDS ORDERED: Magnesium Oxide 400 MG Tab PO ONE (01:30)
[2018-04-22] MEDS: metroNIDAZOLE/Normal Saline 500 MG in Premix Bag 1 BAG IV SCH ×3 (03:33→19:10)
[2018-04-22] MEDS: Heparin Sodium 5,000 Units/ML Vial SUBCUT SCH ×3 (06:27→20:16)
--- NOTE | 2018-04-22 08:12 | CR ---
Chest: Portable view of the chest was obtained. Comparison: Prior chest x-ray of 04/21/18. Decreased pleural effusion is seen on the left side with sharper costophrenic angle. No pneumothorax is seen. Lungs are otherwise clear. Heart size is normal. Scoliosis is noted within the spine. Bony structures show nothing acute. Impression: 1. Decreased left-sided pleural effusion with no pneumothorax. 2. Other incidental findings. Diagnostic code #2 I agree with preliminary report from ad, finalized on 04/21/18, 5:17 PM Central Time
--- NOTE | 2018-04-22 08:22 | PCM.PN ---
- General Info Date of Service: 04/22/18 Admission Dx/Problem (Free Text): Admission Diagnosis/Problem Admission Diagnosis/Problem Cirrhosis of liver with ascites Subjective Update: Follow Up Functional Status: Reports: Pain Controlled, Tolerating Diet, Ambulating, Urinating - Review of Systems General: Denies: Fever, Weakness, Fatigue, Malaise, Chills HEENT: Reports: No Symptoms Pulmonary: Denies: Shortness of Breath, Cough, Sputum Cardiovascular: Reports: Edema (abdominal). Denies: Chest Pain, Dyspnea on Exertion, Lightheadedness Gastrointestinal: Reports: Flatus. Denies: Abdominal Pain, Decreased Appetite, Nausea, Vomiting Genitourinary: Reports: No Symptoms Musculoskeletal: Reports: Other (Abdominal Pain) Skin: Denies: Cyanosis, Mottled, Pallor, Diaphoresis, Bruising Neurological: Denies: Confusion, Dizziness, Headache, Numbness, Paresthesia, Pre -Existing Deficit, Seizure, Syncope, Difficulty Walking, Weakness, Gait Disturbance Psychiatric: Denies: Confusion, Depression, Anxiety, Agitation, Hallucinations Systems Review Comment:: No overnight or acute issues. She rested well last night. She feels good this AM. She has been ambulating and tolerating current diet well. - Patient Data Vitals - Most Recent: Last Vital Signs Temp 36.8 C 04/22/18 03:36 Pulse 78 04/22/18 03:36 Resp 18 04/22/18 03:36 BP 122/66 04/22/18 03:36 Pulse Ox 94 L 04/22/18 03:36 Weight - Most Recent: 98.004 kg I&O - Last 24 Hours: Intake & Output 04/21/18 04/22/18 04/22/18 22:59 06:59 14:59 Intake Total 620 500 Output Total 1605 Balance -985 500 Lab Results Last 24 Hours: Laboratory Results - last 24 hr 04/21/18 04/21/18 04/21/18 Range/Units 05:11 05:37 05:37 WBC (3.98-10.04) K/mm3 RBC (3.98-5.22) M/mm3 Hgb (11.2-15.7) gm/L Hct (34.1-44.9) % MCV (79.4-94.8) fl MCH (25.6-32.2) pg MCHC (32.2-35.5) g/dl RDW Std Deviation (36.4-46.3) fL Plt Count (182-369) K/mm3 MPV (9.4-12.3) fl Neut % (Auto) (34.0-71.1) % Lymph % (Auto) (19.3-51.7) % [place] % (Auto) (4.7-12.5) % Eos % (Auto) (0.7-5.8) Baso % (Auto) (0.1-1.2) % Neut # (Auto) (1.56-6.13) K/mm3 Lymph # (Auto) (1.18-3.74) K/mm3 [place] # (Auto) (0.24-0.36) K/mm3 Eos # (Auto) (0.04-0.36) K/mm3 Baso # (Auto) (0.01-0.08) K/mm3 Neutrophils % (Manual) 54 (40-60) % Band Neutrophils % 0 (0-10) % Lymphocytes % (Manual) 35 (20-40) % Atypical Lymphs % 0 % Monocytes % (Manual) 10 (2-10) % Eosinophils % (Manual) 1 (0.7-5.8) % Basophils % (Manual) 0 L (0.1-1.2) Platelet Estimate Adequate RBC Morph Comment Normal PT 16.9 H (9.5-12.1) SECONDS INR 1.56 Lactic Acid (0.4-2.0) mmol/L Magnesium (1.8-2.4) mg/dl C-Reactive Protein (<1.0) mg/dL Free T4 (0.76-1.46) ng/dL TSH 3rd Generation 6.943 H (0.358-3.74) uIU/mL 04/21/18 04/22/18 04/22/18 Range/Units 11:12 06:29 06:29 WBC 4.40 (3.98-10.04) K/mm3 RBC 4.82 (3.98-5.22) M/mm3 Hgb 14.1 (11.2-15.7) gm/L Hct 41.0 (34.1-44.9) % MCV 85.1 (79.4-94.8) fl MCH 29.3 (25.6-32.2) pg MCHC 34.4 (32.2-35.5) g/dl RDW Std Deviation 52.5 H (36.4-46.3) fL Plt Count 144 L (182-369) K/mm3 MPV 9.5 (9.4-12.3) fl Neut % (Auto) 56.9 (34.0-71.1) % Lymph % (Auto) 28.6 (19.3-51.7) % [place] % (Auto) 14.3 H (4.7-12.5) % Eos % (Auto) 0 L (0.7-5.8) Baso % (Auto) 0.0 L (0.1-1.2) % Neut # (Auto) 2.50 (1.56-6.13) K/mm3 Lymph # (Auto) 1.26 (1.18-3.74) K/mm3 [place] # (Auto) 0.63 H (0.24-0.36) K/mm3 Eos # (Auto) 0.00 L (0.04-0.36) K/mm3 Baso # (Auto) 0.00 L (0.01-0.08) K/mm3 Neutrophils % (Manual) (40-60) % Band Neutrophils % (0-10) % Lymphocytes % (Manual) (20-40) % Atypical Lymphs % % Monocytes % (Manual) (2-10) % Eosinophils % (Manual) (0.7-5.8) % Basophils % (Manual) (0.1-1.2) Platelet Estimate RBC Morph Comment PT (9.5-12.1) SECONDS INR Lactic Acid (0.4-2.0) mmol/L Magnesium 1.9 (1.8-2.4) mg/dl C-Reactive Protein 2.8 H* (<1.0) mg/dL Free T4 1.33 (0.76-1.46) ng/dL TSH 3rd Generation (0.358-3.74) uIU/mL 04/22/18 Range/Units 06:29 WBC (3.98-10.04) K/mm3 RBC (3.98-5.22) M/mm3 Hgb (11.2-15.7) gm/L Hct (34.1-44.9) % MCV (79.4-94.8) fl MCH (25.6-32.2) pg MCHC (32.2-35.5) g/dl RDW Std Deviation (36.4-46.3) fL Plt Count (182-369) K/mm3 MPV (9.4-12.3) fl Neut % (Auto) (34.0-71.1) % Lymph % (Auto) (19.3-51.7) % [place] % (Auto) (4.7-12.5) % Eos % (Auto) (0.7-5.8) Baso % (Auto) (0.1-1.2) % Neut # (Auto) (1.56-6.13) K/mm3 Lymph # (Auto) (1.18-3.74) K/mm3 [place] # (Auto) (0.24-0.36) K/mm3 Eos # (Auto) (0.04-0.36) K/mm3 Baso # (Auto) (0.01-0.08) K/mm3 Neutrophils % (Manual) (40-60) % Band Neutrophils % (0-10) % Lymphocytes % (Manual) (20-40) % Atypical Lymphs % % Monocytes % (Manual) (2-10) % Eosinophils % (Manual) (0.7-5.8) % Basophils % (Manual) (0.1-1.2) Platelet Estimate RBC Morph Comment PT (9.5-12.1) SECONDS INR Lactic Acid 1.8 (0.4-2.0) mmol/L Magnesium (1.8-2.4) mg/dl C-Reactive Protein (<1.0) mg/dL Free T4 (0.76-1.46) ng/dL TSH 3rd Generation (0.358-3.74) uIU/mL Humberto Results Last 24 Hours: Microbiology 04/20/18 18:39 Aerobic Blood Culture - Preliminary Blood - Venous NO GROWTH AFTER 1 DAY Anaerobic Blood Culture - Preliminary Gram Positive Cocci 04/20/18 18:45 Aerobic Blood Culture - Preliminary Blood - Venous - Lab Draw NO GROWTH AFTER 1 DAY Anaerobic Blood Culture - Preliminary NO GROWTH AFTER 1 DAY 04/20/18 20:55 Gram Stain - Final Abdominal Fluid - Aspirate Body Fluid Culture - Preliminary NO GROWTH AFTER 1 DAY Med Orders - Current: Current Medications Baclofen (Lioresal) 10 mg PO BID [facility] Last Admin: 04/21/18 20:27 Dose: 10 mg Famotidine (Pepcid) 20 mg PO BID [facility] Last Admin: 04/21/18 20:27 Dose: 20 mg Folic Acid (Folic Acid) 1 mg PO BEDTIME [facility] Last Admin: 04/21/18 20:27 Dose: 1 mg Furosemide (Lasix) 20 mg IVPUSH BID [facility] Stop: 04/23/18 09:01 Last Admin: 04/21/18 17:36 Dose: 20 mg Furosemide (Lasix) 40 mg PO DAILY [facility] Gabapentin (Neurontin) 600 mg PO TID [facility] Last Admin: 04/21/18 20:25 Dose: 600 mg Gabapentin (Neurontin) 200 mg PO TID [facility] Last Admin: 04/21/18 20:25 Dose: 200 mg Heparin Sodium (Porcine) (Heparin Sodium) 5,000 units SUBCUT TID@0700,1400, 2100 [facility] Last Admin: 04/22/18 06:27 Dose: 5,000 units Hydromorphone HCl (Dilaudid) 0.5 mg IVPUSH Q4H PRN PRN Reason: Pain Last Admin: 04/21/18 15:15 Dose: 0.5 mg Metronidazole 500 mg/ Premix 100 mls @ 100 mls/hr IV Q8H [facility] Last Admin: 04/22/18 03:33 Dose: 100 mls/hr Ceftriaxone Sodium 2 gm/ (Sodium Chloride) 100 mls @ 200 mls/hr IV Q24H [facility] Magnesium Sulfate (Pharmacy To Dose - Magnesium Replacement) 1 dose .XX ASDIRECTED PRN PRN Reason: RX TO WATCH MG LEVELS Metoclopramide HCl (Reglan) 10 mg IVPUSH Q6H PRN PRN Reason: Nausea/Vomiting Last Admin: 04/21/18 09:34 Dose: 10 mg Multivitamins (Thera) 1 each PO BEDTIME [facility] Last Admin: 04/21/18 20:25 Dose: 1 each Ondansetron HCl (Zofran) 4 mg IVPUSH Q8H PRN PRN Reason: Nausea Potassium Chloride (Klor-Con M20) 40 meq PO BID [facility] Stop: 04/22/18 21:01 Last Admin: 04/21/18 20:28 Dose: 40 meq Potassium Chloride (Pharmacy To Dose - Potassium Replacement) 1 dose .XX ASDIRECTED PRN PRN Reason: RX TO WATCH K+ LEVELS Rifaximin (Xifaxan) 550 mg PO BID [facility] Last Admin: 04/21/18 20:26 Dose: 550 mg Saccharomyces Boulardii (Florastor) 500 mg PO DAILY [facility] Spironolactone (Aldactone) 50 mg PO BID [facility] Last Admin: 04/21/18 20:24 Dose: 50 mg Temazepam (Restoril) 7.5 mg PO BEDTIME PRN PRN Reason: Insomnia Thiamine HCl (Vitamin B-1) 100 mg PO BEDTIME [facility] Last Admin: 04/21/18 20:28 Dose: 100 mg Discontinued Medications Fentanyl (Sublimaze) 100 mcg IVPUSH ONETIME ONE Stop: 04/20/18 19:28 Last Admin: 04/20/18 21:12 Dose: Not Given Furosemide (Lasix) 20 mg IVPUSH DAILY [facility] Last Admin: 04/21/18 10:43 Dose: 20 mg Hydromorphone HCl (Dilaudid) 1 mg IVPUSH ONETIME ONE Stop: 04/20/18 18:15 Last Admin: 04/20/18 18:26 Dose: 1 mg Hydromorphone HCl (Dilaudid) 0.5 mg IVPUSH Q4H PRN PRN Reason: Pain Dextrose/Sodium Chloride (Dextrose 5%-Normal Saline) 1,000 mls @ 250 mls/hr IV ASDIRECTED [facility] Last Admin: 04/20/18 18:25 Dose: 250 mls/hr Levofloxacin/Dextrose 750 mg/ (Premix) 150 mls @ 100 mls/hr IV ONETIME ONE Stop: 04/20/18 22:22 Last Admin: 04/20/18 21:09 Dose: 100 mls/hr Potassium Chloride 10 meq/ (Premix) 100 mls @ 100 mls/hr IV ONETIME ONE Stop: 04/20/18 22:37 Last Admin: 04/21/18 01:40 Dose: 100 mls/hr Levofloxacin/Dextrose 750 mg/ (Premix) 150 mls @ 100 mls/hr IV Q24H [facility] Potassium Chloride 10 meq/ (Premix) 100 mls @ 100 mls/hr IV ONETIME ONE Stop: 04/21/18 02:29 Last Admin: 04/21/18 01:47 Dose: Not Given Metronidazole 500 mg/ Premix 100 mls @ 100 mls/hr IV Q8H [facility] Last Admin: 04/21/18 16:06 Dose: Not Given Cefotaxime Sodium 2 gm/ Sodium (Chloride) 50 mls @ 100 mls/hr IV Q8H TAL Ceftriaxone Sodium 2 gm/ (Sodium Chloride) 100 mls @ 200 mls/hr IV ONETIME ONE Stop: 04/21/18 17:59 Last Admin: 04/21/18 17:37 Dose: 200 mls/hr Lidocaine HCl (Xylocaine 1%) Confirm Administered Dose 50 ml .ROUTE .STK-MED ONE Stop: 04/21/18 15:37 Last Admin: 04/21/18 16:08 Dose: 50 ml Lidocaine/Epinephrine (Xylocaine 1% With Epinephrine 1:100,000) 20 ml INJECT ONETIME ONE Stop: 04/20/18 19:28 Last Admin: 04/20/18 20:26 Dose: 20 ml Lidocaine/Epinephrine (Xylocaine 1% With Epinephrine 1:100,000) Confirm Administered Dose 20 ml .ROUTE .STK-MED ONE Stop: 04/20/18 20:35 Last Admin: 04/20/18 21:13 Dose: Not Given Lidocaine/Epinephrine (Xylocaine 1% With Epinephrine 1:100,000) 20 ml INJECT ONETIME ONE Stop: 04/20/18 21:14 Last Admin: 04/20/18 20:45 Dose: 20 ml Lorazepam (Ativan) Confirm Administered Dose 2 mg .ROUTE .STK-MED ONE Stop: 04/21/18 15:30 Last Admin: 04/21/18 16:07 Dose: Not Given Lorazepam (Ativan) 0.5 mg IVPUSH ONETIME ONE Stop: 04/21/18 15:32 Last Admin: 04/21/18 16:04 Dose: 0.5 mg Magnesium Hydroxide (Milk Of Magnesia) 30 ml PO ONETIME ONE Stop: 04/21/18 16:33 Last Admin: 04/21/18 17:35 Dose: 30 ml Magnesium Oxide (Magnesium Oxide) 400 mg PO ONETIME ONE Stop: 04/22/18 01:31 Last Admin: 04/22/18 03:33 Dose: 400 mg Metoclopramide HCl (Reglan) 10 mg IVPUSH ONETIME ONE Stop: 04/20/18 18:15 Last Admin: 04/20/18 18:25 Dose: 10 mg Midazolam HCl (Versed 1 Mg/Ml) 5 mg IVPUSH ONETIME ONE Stop: 04/20/18 19:28 Last Admin: 04/20/18 21:10 Dose: Not Given Midazolam HCl (Versed 1 Mg/Ml) Confirm Administered Dose 6 mg .ROUTE .STK-MED ONE Stop: 04/20/18 19:37 Last Admin: 04/20/18 21:13 Dose: Not Given Midazolam HCl (Versed 1 Mg/Ml) 4 mg IVPUSH ONETIME ONE Stop: 04/20/18 21:00 Last Admin: 04/20/18 20:30 Dose: 2 mg Potassium Chloride (Klor-Con M20) 40 meq PO BID [facility] Stop: 04/22/18 21:01 Last Admin: 04/21/18 17:09 Dose: Not Given Spironolactone (Aldactone) 25 mg PO BID [facility] Last Admin: 04/21/18 10:41 Dose: 25 mg - Exam General: Alert, Oriented, Cooperative, No Acute Distress HEENT: Pupils Equal, Pupils Reactive, EOMI, Mucous Membr. Moist/[place] Neck: Supple, No JVD, No Thyromegaly Lungs: Normal Respiratory Effort, Decreased Breath Sounds, Crackles (at the left base) Cardiovascular: Regular Rate, Regular Rhythm, Murmurs GI/Abdominal Exam: Normal Bowel Sounds, Soft, Non-Tender, No Organomegaly, No Distention, No Abnormal Bruit, Other (Obese) (Female) Exam: Deferred Back Exam: Normal Inspection, Decreased Range of Motion Extremities: Normal Inspection, Normal Range of Motion, Non-Tender, No Pedal Edema, Normal Capillary Refill Peripheral Pulses: 2+: Dorsalis Pedis (L), Dorsalis Pedis (R) Skin: Warm, Dry (very dry skin), Intact Neurological: No New Focal Deficit Psy/Mental Status: Alert, Normal Affect, Normal Mood - Problem List Review Problem List Initiated/Reviewed/Updated: Yes - My Orders Last 24 Hours: My Active Orders 04/21/18 11:31 Incentive Spirometry [RT Incentive Spirometry] [RC] Q2HWA 04/21/18 11:32 Ambulate [RC] PER UNIT ROUTINE 04/21/18 11:40 Consult to Dietary [Consult to Graphite [employer] Operator] [CONS] Routine 04/21/18 17:14 Antiembolic Devices [RC] PER UNIT ROUTINE 04/21/18 18:15 Furosemide [Lasix] 20 mg IVPUSH BID 04/21/18 21:00 Famotidine [Pepcid] 20 mg PO BID Folic Acid 1 mg PO BEDTIME Heparin Sodium 5,000 units SUBCUT TID@0700,1400,2100 Multivitamins,Therapeutic [Thera] 1 each PO BEDTIME Spironolactone [Aldactone] 50 mg PO BID Thiamine [Vitamin B-1] 100 mg PO BEDTIME 04/21/18 Dinner Regular Diet [DIET] 04/22/18 01:00 Pharmacy to Dose - Magnesium R [Pharmacy to Dose - Magnesium Replacement] 1 dose .XX ASDIRECTED PRN Pharmacy to Dose - Potassium R [Pharmacy to Dose - Potassium Replacement] 1 dose .XX ASDIRECTED PRN 04/22/18 09:00 Furosemide [Lasix] 40 mg PO DAILY Saccharomyces Boulardii [Florastor] 500 mg PO DAILY 04/22/18 10:00 cefTRIAXone [Rocephin] 2 gm Sodium Chloride 0.9% [Normal Saline] 100 ml IV Q24H 04/22/18 Breakfast Fluid Restriction [DIET] Sodium Restricted Diet [DIET] 04/23/18 07:00 CBC W/O DIFF,HEMOGRAM [HEME] MOTH@0700 04/27/18 07:00 CBC W/O DIFF,HEMOGRAM [HEME] MOTH@0700 04/30/18 07:00 CBC W/O DIFF,HEMOGRAM [HEME] MOTH@0700 05/04/18 07:00 CBC W/O DIFF,HEMOGRAM [HEME] MOTH@0700 05/07/18 07:00 CBC W/O DIFF,HEMOGRAM [HEME] MOTH@0700 05/11/18 07:00 CBC W/O DIFF,HEMOGRAM [HEME] MOTH@0700 - Plan Plan:: Impression/Plan: Acute: Decompensated Liver Failure S/p Paracentesis - 2/2 Cirrhosis, NOS (patient was told she has HELMS) - Seen and evaluated by Dr. Bliss in [place] and underwent liver biopsy pending result - Recently has paracentesis and in 2 weeks she re-accumulated - Had paracentesis in ED on admission with 6L abdominal ascites removed - She is currently on IV Flagyl and Rocephin prophylaxis for post procedural bacterial peritonitis - Ascites fluid shows WBC is 0.16; rest of her labs are wnl - INR now is 1.47 from 1.56 yesterday - Initial MELD Score is 18 with 6% Estimated 3-month Mortality Large Left Sided Pleural Effusion - Cannot r/o Hepato-Pulmonary Syndrome - S/p Thoracentesis w/ estimated 855 ml of straw colored pleural fluids - IS as tolerated E-lytes Abnormality - Hypokalemia and Hypomagnesemia - K 3.2 and Mg 1.6 - Increased Aldactone dose - Pharmacy to replete and monitor Possible Bacteremia vs Contamination - S/p Paracentesis in ED on admission - 02/12 bottles shows Streptoccocus Species and Probable Staph Species - Currently on IV Flagyl and Rocephin - Repeat blood culture in AM x 2 Chronic: PTSD Depression Spinal stenosis, cervical Back Pain Scoliosis Class I Obese Polypharmacy 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 Bliss, query transplant work Need EMR from [place] provider LOS anticipate > 96 hrs pending repeat blood culture and further diuresis Met up with her son today at bedside with patient's permission. Went over her test results, labs, diagnoses, clinical status, treatment and discharge care plan. Informed patient it would be best for her to go back to [place] after discharge due to more accessibility and availability of health care resources. She understands there is no liver transplant center here in [place]. However we recommend she follows up with Dr. Bliss prior to her departure. Also informed her I did not think she needed [facility]. What perceived to be declining health status was due to poly-pharmacy. She is on the following medications: Baclofen 10 mg po BID, Flexeril 10 mg po TID PRN, Neurontin 800 mg po TID, Tramadol 50 mg po QH6 PRN, and Oxycodone 5 mg po Q4H PRN--all caused synergistic sedation/alteration of mentation in the setting of her baseline hepatic encephalopathy.
[2018-04-22] MEDS: Spironolactone 25 MG Tab PO SCH ×2 (08:36→20:17)
[2018-04-22] MEDS: Gabapentin 100 MG Cap PO SCH ×3 (08:37→20:19)
[2018-04-22] MEDS: Gabapentin 600 MG Tab PO SCH ×3 (08:37→20:18)
[2018-04-22] MEDS: Potassium Chloride 20 MEQ Tab.ER PO SCH ×2 (08:38→20:18)
[2018-04-22] MEDS: Rifaximin 550 MG Tab PO SCH ×2 (08:38→20:17)
[2018-04-22] MEDS: Famotidine 20 MG Tab PO SCH ×2 (08:39→20:17)
[2018-04-22] MEDS: Baclofen 10 MG Tab PO SCH ×2 (08:39→20:18)
[2018-04-22] MEDS: Saccharomyces Boulardii (Probiotic) 250 MG Cap PO SCH (08:40)
[2018-04-22] MEDS: Furosemide 20 MG/2 ML VIAL IVPUSH SCH ×2 (08:41→20:19)
[2018-04-22] MEDS ORDERED: Furosemide 40 MG Tab PO SCH (09:00)
[2018-04-22] MEDS: cefTRIAXone 2 GM in Sodium Chloride 0.9% 100 ML IV SCH (09:11)
[2018-04-22] MEDS: HYDROmorphone 1 MG/ML Syringe IVPUSH PRN ×2 (10:15→15:49)
[2018-04-22] MEDS: Metoclopramide 10 MG/2 ML SDV IVPUSH PRN ×2 (10:57→20:05)
[2018-04-22] MEDS: Ondansetron 4 MG/2 ML SDV IVPUSH PRN (15:46)
[2018-04-22] MEDS: Folic Acid 1 MG Tab PO SCH (20:17)
[2018-04-22] MEDS: Multivitamins,Therapeutic Tab PO SCH (20:17)
[2018-04-22] MEDS: Thiamine 100 MG Tab PO SCH (20:19)
[2018-04-23] MEDS: Ondansetron 4 MG/2 ML SDV IVPUSH PRN (01:00)
[2018-04-23] MEDS: metroNIDAZOLE/Normal Saline 500 MG in Premix Bag 1 BAG IV SCH ×3 (02:54→18:09)
[2018-04-23] MEDS: oxyCODONE 5 MG Tab PO PRN ×2 (06:15→23:36)
[2018-04-23] MEDS: Heparin Sodium 5,000 Units/ML Vial SUBCUT SCH ×3 (06:16→20:01)
[2018-04-23] MEDS: Spironolactone 25 MG Tab PO SCH ×2 (08:46→19:59)
[2018-04-23] MEDS: Rifaximin 550 MG Tab PO SCH ×2 (08:46→20:00)
[2018-04-23] MEDS: Saccharomyces Boulardii (Probiotic) 250 MG Cap PO SCH (08:47)
[2018-04-23] MEDS: Gabapentin 100 MG Cap PO SCH ×3 (08:48→20:01)
[2018-04-23] MEDS: Gabapentin 600 MG Tab PO SCH (08:48)
[2018-04-23] MEDS: Baclofen 10 MG Tab PO SCH (08:49)
[2018-04-23] MEDS: Furosemide 20 MG/2 ML VIAL IVPUSH SCH (08:49)
--- NOTE | 2018-04-23 09:10 | PCM.PN ---
- General Info Date of Service: 04/23/18 Admission Dx/Problem (Free Text): Admission Diagnosis/Problem Admission Diagnosis/Problem Cirrhosis of liver with ascites Subjective Update: Follow Up Functional Status: Reports: Pain Controlled, Tolerating Diet, Ambulating, Urinating, New Symptoms - Review of Systems General: Denies: Fever, Chills HEENT: Reports: No Symptoms Pulmonary: Denies: Shortness of Breath Cardiovascular: Denies: Chest Pain, Dyspnea on Exertion, Edema, Lightheadedness Gastrointestinal: Reports: Diarrhea, Flatus. Denies: Abdominal Pain, Decreased Appetite, Nausea, Vomiting Genitourinary: Reports: No Symptoms Musculoskeletal: Reports: No Symptoms Skin: Reports: Bruising. Denies: Cyanosis, Mottled, Pallor, Diaphoresis Neurological: Reports: Other (slow in response and thinking). Denies: Difficulty Walking, Weakness, Gait Disturbance Psychiatric: Denies: Depression, Anxiety, Agitation, Hallucinations Systems Review Comment:: No significant or acute issues overnight but she was off cognitively and slow in her response. Her Ammonia level is 42 this AM. - Patient Data Vitals - Most Recent: Last Vital Signs Temp 37.0 C 04/23/18 04:36 Pulse 83 04/23/18 04:36 Resp 18 04/23/18 04:36 BP 119/70 04/23/18 04:36 Pulse Ox 94 L 04/23/18 04:36 Weight - Most Recent: 98.94 kg I&O - Last 24 Hours: Intake & Output 04/22/18 04/23/18 04/23/18 22:59 06:59 14:59 Intake Total 840 600 Output Total 650 Balance 190 600 Lab Results Last 24 Hours: Laboratory Results - last 24 hr 04/23/18 04/23/18 04/23/18 Range/Units 05:58 05:58 05:58 WBC (3.98-10.04) K/mm3 RBC (3.98-5.22) M/mm3 Hgb (11.2-15.7) gm/L Hct (34.1-44.9) % MCV (79.4-94.8) fl MCH (25.6-32.2) pg MCHC (32.2-35.5) g/dl RDW Std Deviation (36.4-46.3) fL Plt Count (182-369) K/mm3 MPV (9.4-12.3) fl Neut % (Auto) (34.0-71.1) % Lymph % (Auto) (19.3-51.7) % [place] % (Auto) (4.7-12.5) % Eos % (Auto) (0.7-5.8) Baso % (Auto) (0.1-1.2) % Neut # (Auto) (1.56-6.13) K/mm3 Lymph # (Auto) (1.18-3.74) K/mm3 [place] # (Auto) (0.24-0.36) K/mm3 Eos # (Auto) (0.04-0.36) K/mm3 Baso # (Auto) (0.01-0.08) K/mm3 PT 15.6 H (9.5-12.1) SECONDS INR 1.44 Sodium (136-145) mEq/L Potassium (3.5-5.1) mEq/L Chloride (98-107) mEq/L Carbon Dioxide (21-32) mEq/L Anion Gap (5-15) BUN (7-18) mg/dL Creatinine (0.55-1.02) mg/dL Est Cr Clr Drug Dosing mL/min Estimated GFR (MDRD) (>60) mL/min BUN/Creatinine Ratio (14-18) Glucose (74-106) mg/dL Lactic Acid 2.1 H (0.4-2.0) mmol/L Calcium (8.5-10.1) mg/dL Magnesium 1.9 (1.8-2.4) mg/dl Total Bilirubin (0.2-1.0) mg/dL AST (15-37) U/L ALT (14-59) U/L Alkaline Phosphatase (46-116) U/L C-Reactive Protein 2.9 H* (<1.0) mg/dL Total Protein (6.4-8.2) g/dl Albumin (3.4-5.0) g/dl Globulin gm/dL Albumin/Globulin Ratio (1-2) 04/23/18 04/23/18 Range/Units 05:58 05:58 WBC 7.52 (3.98-10.04) K/mm3 RBC 5.22 (3.98-5.22) M/mm3 Hgb 15.2 (11.2-15.7) gm/L Hct 44.4 (34.1-44.9) % MCV 85.1 (79.4-94.8) fl MCH 29.1 (25.6-32.2) pg MCHC 34.2 (32.2-35.5) g/dl RDW Std Deviation 53.8 H (36.4-46.3) fL Plt Count 217 (182-369) K/mm3 MPV 9.4 (9.4-12.3) fl Neut % (Auto) 55.9 (34.0-71.1) % Lymph % (Auto) 30.9 (19.3-51.7) % [place] % (Auto) 13.0 H (4.7-12.5) % Eos % (Auto) 0.1 L (0.7-5.8) Baso % (Auto) 0.0 L (0.1-1.2) % Neut # (Auto) 4.20 (1.56-6.13) K/mm3 Lymph # (Auto) 2.32 (1.18-3.74) K/mm3 [place] # (Auto) 0.98 H (0.24-0.36) K/mm3 Eos # (Auto) 0.01 L (0.04-0.36) K/mm3 Baso # (Auto) 0.00 L (0.01-0.08) K/mm3 PT (9.5-12.1) SECONDS INR Sodium 132 L (136-145) mEq/L Potassium 4.9 (3.5-5.1) mEq/L Chloride 100 (98-107) mEq/L Carbon Dioxide 24 (21-32) mEq/L Anion Gap 12.9 (5-15) BUN 15 (7-18) mg/dL Creatinine 1.8 H (0.55-1.02) mg/dL Est Cr Clr Drug Dosing 40.40 mL/min Estimated GFR (MDRD) 29 (>60) mL/min BUN/Creatinine Ratio 8.3 L (14-18) Glucose 123 H (74-106) mg/dL Lactic Acid (0.4-2.0) mmol/L Calcium 9.3 (8.5-10.1) mg/dL Magnesium (1.8-2.4) mg/dl Total Bilirubin 1.9 H (0.2-1.0) mg/dL AST 66 H (15-37) U/L ALT 34 (14-59) U/L Alkaline Phosphatase 194 H (46-116) U/L C-Reactive Protein (<1.0) mg/dL Total Protein 7.2 (6.4-8.2) g/dl Albumin 2.5 L (3.4-5.0) g/dl Globulin 4.7 gm/dL Albumin/Globulin Ratio 0.5 L (1-2) Humberto Results Last 24 Hours: Microbiology 04/20/18 18:39 Aerobic Blood Culture - Preliminary Blood - Venous NO GROWTH AFTER 2 DAYS Anaerobic Blood Culture - Preliminary Streptococcus Species Probable Staphylococcus Sp 04/20/18 18:45 Aerobic Blood Culture - Preliminary Blood - Venous - Lab Draw NO GROWTH AFTER 2 DAYS Anaerobic Blood Culture - Preliminary NO GROWTH AFTER 2 DAYS 04/20/18 20:55 Gram Stain - Final Abdominal Fluid - Aspirate Body Fluid Culture - Preliminary NO GROWTH AFTER 2 DAYS Med Orders - Current: Current Medications Baclofen (Lioresal) 10 mg PO BID [facility] Last Admin: 04/23/18 08:49 Dose: 10 mg Famotidine (Pepcid) 20 mg PO BEDTIME [facility] Folic Acid (Folic Acid) 1 mg PO BEDTIME [facility] Last Admin: 04/22/18 20:17 Dose: 1 mg Furosemide (Lasix) 40 mg PO DAILY [facility] Last Admin: 04/22/18 08:41 Dose: Not Given Gabapentin (Neurontin) 600 mg PO TID [facility] Last Admin: 04/23/18 08:48 Dose: 600 mg Gabapentin (Neurontin) 200 mg PO TID [facility] Last Admin: 04/23/18 08:48 Dose: 200 mg Heparin Sodium (Porcine) (Heparin Sodium) 5,000 units SUBCUT TID@0700,1400, 2100 [facility] Last Admin: 04/23/18 06:16 Dose: 5,000 units Hydromorphone HCl (Dilaudid) 0.5 mg IVPUSH Q4H PRN PRN Reason: Pain Last Admin: 04/22/18 15:49 Dose: 0.5 mg Metronidazole 500 mg/ Premix 100 mls @ 100 mls/hr IV Q8H [facility] Last Admin: 04/23/18 02:54 Dose: 100 mls/hr Ceftriaxone Sodium 2 gm/ (Sodium Chloride) 100 mls @ 200 mls/hr IV Q24H [facility] Last Admin: 04/22/18 09:11 Dose: 200 mls/hr Magnesium Sulfate (Pharmacy To Dose - Magnesium Replacement) 1 dose .XX ASDIRECTED PRN PRN Reason: RX TO WATCH MG LEVELS Metoclopramide HCl (Reglan) 10 mg IVPUSH Q6H PRN PRN Reason: Nausea/Vomiting Last Admin: 04/22/18 20:05 Dose: 10 mg Multivitamins (Thera) 1 each PO BEDTIME [facility] Last Admin: 04/22/18 20:17 Dose: 1 each Ondansetron HCl (Zofran) 4 mg IVPUSH Q8H PRN PRN Reason: Nausea Last Admin: 04/23/18 01:00 Dose: 4 mg Oxycodone HCl (Oxycodone) 5 mg PO Q4HR PRN PRN Reason: Pain Last Admin: 04/23/18 06:15 Dose: 5 mg Potassium Chloride (Pharmacy To Dose - Potassium Replacement) 1 dose .XX ASDIRECTED PRN PRN Reason: RX TO WATCH K+ LEVELS Rifaximin (Xifaxan) 550 mg PO BID [facility] Last Admin: 04/23/18 08:46 Dose: 550 mg Saccharomyces Boulardii (Florastor) 500 mg PO DAILY [facility] Last Admin: 04/23/18 08:47 Dose: 500 mg Spironolactone (Aldactone) 50 mg PO BID [facility] Last Admin: 04/23/18 08:46 Dose: 50 mg Thiamine HCl (Vitamin B-1) 100 mg PO BEDTIME [facility] Last Admin: 04/22/18 20:19 Dose: 100 mg Discontinued Medications Famotidine (Pepcid) 20 mg PO BID [facility] Last Admin: 04/22/18 20:17 Dose: 20 mg Fentanyl (Sublimaze) 100 mcg IVPUSH ONETIME ONE Stop: 04/20/18 19:28 Last Admin: 04/20/18 21:12 Dose: Not Given Furosemide (Lasix) 20 mg IVPUSH DAILY [facility] Last Admin: 04/21/18 10:43 Dose: 20 mg Furosemide (Lasix) 20 mg IVPUSH BID [facility] Stop: 04/23/18 09:01 Last Admin: 04/23/18 08:49 Dose: 20 mg Hydromorphone HCl (Dilaudid) 1 mg IVPUSH ONETIME ONE Stop: 04/20/18 18:15 Last Admin: 04/20/18 18:26 Dose: 1 mg Hydromorphone HCl (Dilaudid) 0.5 mg IVPUSH Q4H PRN PRN Reason: Pain Dextrose/Sodium Chloride (Dextrose 5%-Normal Saline) 1,000 mls @ 250 mls/hr IV ASDIRECTED [facility] Last Admin: 04/20/18 18:25 Dose: 250 mls/hr Levofloxacin/Dextrose 750 mg/ (Premix) 150 mls @ 100 mls/hr IV ONETIME ONE Stop: 04/20/18 22:22 Last Admin: 04/20/18 21:09 Dose: 100 mls/hr Potassium Chloride 10 meq/ (Premix) 100 mls @ 100 mls/hr IV ONETIME ONE Stop: 04/20/18 22:37 Last Admin: 04/21/18 01:40 Dose: 100 mls/hr Levofloxacin/Dextrose 750 mg/ (Premix) 150 mls @ 100 mls/hr IV Q24H [facility] Potassium Chloride 10 meq/ (Premix) 100 mls @ 100 mls/hr IV ONETIME ONE Stop: 04/21/18 02:29 Last Admin: 04/21/18 01:47 Dose: Not Given Metronidazole 500 mg/ Premix 100 mls @ 100 mls/hr IV Q8H [facility] Last Admin: 04/21/18 16:06 Dose: Not Given Cefotaxime Sodium 2 gm/ Sodium (Chloride) 50 mls @ 100 mls/hr IV Q8H [facility] Ceftriaxone Sodium 2 gm/ (Sodium Chloride) 100 mls @ 200 mls/hr IV ONETIME ONE Stop: 04/21/18 17:59 Last Admin: 04/21/18 17:37 Dose: 200 mls/hr Lidocaine HCl (Xylocaine 1%) Confirm Administered Dose 50 ml .ROUTE .STK-MED ONE Stop: 04/21/18 15:37 Last Admin: 04/21/18 16:08 Dose: 50 ml Lidocaine/Epinephrine (Xylocaine 1% With Epinephrine 1:100,000) 20 ml INJECT ONETIME ONE Stop: 04/20/18 19:28 Last Admin: 04/20/18 20:26 Dose: 20 ml Lidocaine/Epinephrine (Xylocaine 1% With Epinephrine 1:100,000) Confirm Administered Dose 20 ml .ROUTE .STK-MED ONE Stop: 04/20/18 20:35 Last Admin: 04/20/18 21:13 Dose: Not Given Lidocaine/Epinephrine (Xylocaine 1% With Epinephrine 1:100,000) 20 ml INJECT ONETIME ONE Stop: 04/20/18 21:14 Last Admin: 04/20/18 20:45 Dose: 20 ml Lorazepam (Ativan) Confirm Administered Dose 2 mg .ROUTE .STK-MED ONE Stop: 04/21/18 15:30 Last Admin: 04/21/18 16:07 Dose: Not Given Lorazepam (Ativan) 0.5 mg IVPUSH ONETIME ONE Stop: 04/21/18 15:32 Last Admin: 04/21/18 16:04 Dose: 0.5 mg Magnesium Hydroxide (Milk Of Magnesia) 30 ml PO ONETIME ONE Stop: 04/21/18 16:33 Last Admin: 04/21/18 17:35 Dose: 30 ml Magnesium Oxide (Magnesium Oxide) 400 mg PO ONETIME ONE Stop: 04/22/18 01:31 Last Admin: 04/22/18 03:33 Dose: 400 mg Metoclopramide HCl (Reglan) 10 mg IVPUSH ONETIME ONE Stop: 04/20/18 18:15 Last Admin: 04/20/18 18:25 Dose: 10 mg Midazolam HCl (Versed 1 Mg/Ml) 5 mg IVPUSH ONETIME ONE Stop: 04/20/18 19:28 Last Admin: 04/20/18 21:10 Dose: Not Given Midazolam HCl (Versed 1 Mg/Ml) Confirm Administered Dose 6 mg .ROUTE .STK-MED ONE Stop: 04/20/18 19:37 Last Admin: 04/20/18 21:13 Dose: Not Given Midazolam HCl (Versed 1 Mg/Ml) 4 mg IVPUSH ONETIME ONE Stop: 04/20/18 21:00 Last Admin: 04/20/18 20:30 Dose: 2 mg Potassium Chloride (Klor-Con M20) 40 meq PO BID [facility] Stop: 04/22/18 21:01 Last Admin: 04/21/18 17:09 Dose: Not Given Potassium Chloride (Klor-Con M20) 40 meq PO BID [facility] Stop: 04/22/18 21:01 Last Admin: 04/22/18 20:18 Dose: 40 meq Spironolactone (Aldactone) 25 mg PO BID [facility] Last Admin: 04/21/18 10:41 Dose: 25 mg Temazepam (Restoril) 7.5 mg PO BEDTIME PRN PRN Reason: Insomnia - Exam General: Alert, No Acute Distress, Other (No asterixis) HEENT: Pupils Equal, Pupils Reactive, EOMI, Mucous Membr. Moist/[place] Neck: Supple Lungs: Clear to Auscultation, Normal Respiratory Effort Cardiovascular: Regular Rate, Regular Rhythm, Murmurs GI/Abdominal Exam: Normal Bowel Sounds, Soft, Non-Tender, No Organomegaly, No Distention, No Abnormal Bruit, Other (Mild prominence of abdominal blood vessels ) (Female) Exam: Deferred Back Exam: Normal Inspection, Decreased Range of Motion Extremities: Normal Inspection, Normal Range of Motion, Non-Tender, No Pedal Edema, Normal Capillary Refill Peripheral Pulses: 2+: Dorsalis Pedis (L), Dorsalis Pedis (R) Skin: Warm, Dry, Intact Neurological: No New Focal Deficit Psy/Mental Status: Normal Affect, Normal Mood, Other (Awake ). No: Agitated, Suicidal Ideation, Homicidal Ideation, Hallucinations, Withdrawal Symptoms Physical Findings Comments:: Somewhat slow in response and thinking - Problem List Review Problem List Initiated/Reviewed/Updated: Yes - My Orders Last 24 Hours: My Active Orders 04/22/18 09:00 Furosemide [Lasix] 40 mg PO DAILY Saccharomyces Boulardii [Florastor] 500 mg PO DAILY 04/22/18 10:00 cefTRIAXone [Rocephin] 2 gm Sodium Chloride 0.9% [Normal Saline] 100 ml IV Q24H 04/22/18 22:18 oxyCODONE 5 mg PO Q4HR PRN 04/22/18 22:29 Blood Culture x2 Reflex Set [OM.PC] Stat 04/23/18 05:58 CULTURE BLOOD [BC] Stat 04/23/18 06:05 CULTURE BLOOD [BC] Stat 04/23/18 08:42 AMMONIA VENOUS [CHEM] Routine 04/23/18 21:00 Famotidine [Pepcid] 20 mg PO BEDTIME 04/24/18 05:11 CBC WITH AUTO DIFF [HEME] AM CMP [COMPREHENSIVE METABOLIC PN,CMP] [CHEM] AM INR,PT,PROTHROMBIN TIME [COAG] AM 04/25/18 05:11 CBC WITH AUTO DIFF [HEME] AM CMP [COMPREHENSIVE METABOLIC PN,CMP] [CHEM] AM INR,PT,PROTHROMBIN TIME [COAG] AM 04/26/18 05:11 CMP [COMPREHENSIVE METABOLIC PN,CMP] [CHEM] AM 04/27/18 07:00 CBC W/O DIFF,HEMOGRAM [HEME] MOTH@0700 04/30/18 07:00 CBC W/O DIFF,HEMOGRAM [HEME] MOTH@0700 05/04/18 07:00 CBC W/O DIFF,HEMOGRAM [HEME] MOTH@0700 05/07/18 07:00 CBC W/O DIFF,HEMOGRAM [HEME] MOTH@0700 05/11/18 07:00 CBC W/O DIFF,HEMOGRAM [HEME] MOTH@07 - Plan Plan:: Impression/Plan: Acute: Hepatic Encephalopathy - Has underlying Liver Cirrhosis (likely ESLD) - Confused and now sharp mentally last night and this AM - She requested to have her home dose percocet re-started and we did yesterday - She is on Baclofen and High dose Gabapentin; will d/c it Decompensated Liver Failure S/p Paracentesis - 2/2 Cirrhosis, NOS (patient was told she has HELMS) - Seen and evaluated by Dr. Bliss in [place] and underwent liver biopsy pending result - Recently has paracentesis and in 2 weeks she re-accumulated - Had paracentesis in ED on admission with 6L abdominal ascites removed - She is currently on IV Flagyl and Rocephin prophylaxis for post procedural bacterial peritonitis - Ascites fluid shows WBC is 0.16; rest of her labs are wnl - INR now is 1.47 from 1.56 yesterday; INR now is 1.44 - Initial MELD Score is 18 with 6% Estimated 3-month Mortality Possible Bacteremia vs Contamination - S/p Paracentesis in ED on admission - 02/12 bottles shows Streptoccocus Species and Probable Staph Species - Currently on IV Flagyl and Rocephin - Repeat blood culture this AM x 2 Resolved: S/p E-lytes Abnormality - Hypokalemia and Hypomagnesemia - K 3.2--> 4.2 and Mg 1.6--> 1.9 - Increased Aldactone dose - Pharmacy to replete and monitor Large Left Sided Pleural Effusion - Cannot r/o Hepato-Pulmonary Syndrome - S/p Thoracentesis w/ estimated 855 ml of straw colored pleural fluids - IS as tolerated Chronic: PTSD Depression Spinal stenosis, cervical Back Pain Scoliosis Portal HTN Class I Obese Polypharmacy 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 Bliss, query transplant work Need EMR from [place] provider Encourage to ambulate as tolerated LOS anticipate > 96 hrs pending repeat blood culture and further diuresis Re-educated patient about the synergistic effects of Gapabentin, Baclofen and Narcotics. Offered to keep her Percocet for pain control but would have to discontinue Baclofen and Gabapentin--> she agreed.
[2018-04-23] MEDS: cefTRIAXone 2 GM in Sodium Chloride 0.9% 100 ML IV SCH (10:22)
[2018-04-23] MEDS: Multivitamins,Therapeutic Tab PO SCH (19:59)
[2018-04-23] MEDS: Folic Acid 1 MG Tab PO SCH (20:00)
[2018-04-23] MEDS: Famotidine 20 MG Tab PO SCH (20:01)
[2018-04-23] MEDS: Thiamine 100 MG Tab PO SCH (20:02)
[2018-04-24] MEDS: Ondansetron 4 MG/2 ML SDV IVPUSH PRN ×2 (00:12→10:48)
[2018-04-24] MEDS: metroNIDAZOLE/Normal Saline 500 MG in Premix Bag 1 BAG IV SCH ×3 (02:28→19:50)
[2018-04-24] MEDS: Heparin Sodium 5,000 Units/ML Vial SUBCUT SCH ×3 (06:15→21:42)
[2018-04-24] MEDS: Furosemide 40 MG Tab PO SCH (08:29)
[2018-04-24] MEDS: Spironolactone 25 MG Tab PO SCH ×2 (08:29→21:41)
[2018-04-24] MEDS: Saccharomyces Boulardii (Probiotic) 250 MG Cap PO SCH (08:29)
[2018-04-24] MEDS: Gabapentin 100 MG Cap PO SCH ×3 (08:30→21:41)
[2018-04-24] MEDS: Rifaximin 550 MG Tab PO SCH ×2 (08:30→21:42)
[2018-04-24] MEDS: cefTRIAXone 2 GM in Sodium Chloride 0.9% 100 ML IV SCH ×2 (10:36→12:20)
[2018-04-24] MEDS ORDERED: metroNIDAZOLE/Normal Saline 100 ML ONE (11:27)
--- NOTE | 2018-04-24 11:34 | PCM.PN ---
- General Info Date of Service: 04/24/18 Admission Dx/Problem (Free Text): Admission Diagnosis/Problem Admission Diagnosis/Problem Cirrhosis of liver with ascites Subjective Update: Follow Up Functional Status: Reports: Tolerating Diet, Ambulating, Urinating. Denies: New Symptoms - Review of Systems General: Denies: Fever, Weakness, Fatigue, Malaise, Chills HEENT: Reports: No Symptoms Pulmonary: Denies: Shortness of Breath, Cough, Sputum Cardiovascular: Denies: Chest Pain, Dyspnea on Exertion, Lightheadedness Gastrointestinal: Denies: Abdominal Pain, Nausea, Vomiting Genitourinary: Reports: No Symptoms Musculoskeletal: Reports: Neck Pain Skin: Denies: Cyanosis, Jaundice, Mottled, Pallor, Diaphoresis, Bruising Neurological: Denies: Confusion, Difficulty Walking, Weakness Psychiatric: Denies: Confusion, Depression, Anxiety, Agitation Systems Review Comment:: No significant overnight or acute issues. She feels a little more distended today. She also report of neck pain but she is now only on Percocet for pain control. her total bilirubin is now down to 1.8. However she continues to lose albumin; is now 2.3 from 3.2 on admission. She has no other complaints this AM. - Patient Data Vitals - Most Recent: Last Vital Signs Temp 36.4 C 04/24/18 08:35 Pulse 78 04/24/18 08:35 Resp 18 04/24/18 08:35 BP 114/78 04/24/18 08:35 Pulse Ox 98 04/24/18 08:35 Weight - Most Recent: 100.289 kg I&O - Last 24 Hours: Intake & Output 04/23/18 04/24/18 04/24/18 22:59 06:59 14:59 Intake Total 600 600 240 Balance 600 600 240 Lab Results Last 24 Hours: Laboratory Results - last 24 hr 04/20/18 04/24/18 04/24/18 Range/Units 20:55 06:03 06:15 WBC (3.98-10.04) K/mm3 RBC (3.98-5.22) M/mm3 Hgb (11.2-15.7) gm/L Hct (34.1-44.9) % MCV (79.4-94.8) fl MCH (25.6-32.2) pg MCHC (32.2-35.5) g/dl RDW Std Deviation (36.4-46.3) fL Plt Count (182-369) K/mm3 MPV (9.4-12.3) fl Neut % (Auto) (34.0-71.1) % Lymph % (Auto) (19.3-51.7) % [place] % (Auto) (4.7-12.5) % Eos % (Auto) (0.7-5.8) Baso % (Auto) (0.1-1.2) % Neut # (Auto) (1.56-6.13) K/mm3 Lymph # (Auto) (1.18-3.74) K/mm3 [place] # (Auto) (0.24-0.36) K/mm3 Eos # (Auto) (0.04-0.36) K/mm3 Baso # (Auto) (0.01-0.08) K/mm3 PT 16.7 H (9.5-12.1) SECONDS INR 1.55 Sodium (136-145) mEq/L Potassium (3.5-5.1) mEq/L Chloride (98-107) mEq/L Carbon Dioxide (21-32) mEq/L Anion Gap (5-15) BUN (7-18) mg/dL Creatinine (0.55-1.02) mg/dL Est Cr Clr Drug Dosing mL/min Estimated GFR (MDRD) (>60) mL/min BUN/Creatinine Ratio (14-18) Glucose (74-106) mg/dL Lactic Acid (0.4-2.0) mmol/L Calcium (8.5-10.1) mg/dL Magnesium 1.8 (1.8-2.4) mg/dl Total Bilirubin (0.2-1.0) mg/dL AST (15-37) U/L ALT (14-59) U/L Alkaline Phosphatase (46-116) U/L C-Reactive Protein 2.3 H* (<1.0) mg/dL Total Protein (6.4-8.2) g/dl Albumin (3.4-5.0) g/dl Globulin gm/dL Albumin/Globulin Ratio (1-2) Body Fluid Site Peritoneal fluid 03/15/19 03/15/19 03/15/19 Range/Units 06:18 06:35 06:35 WBC 7.60 (3.98-10.04) K/mm3 RBC 4.81 (3.98-5.22) M/mm3 Hgb 14.1 (11.2-15.7) gm/L Hct 41.2 (34.1-44.9) % MCV 85.7 (79.4-94.8) fl MCH 29.3 (25.6-32.2) pg MCHC 34.2 (32.2-35.5) g/dl RDW Std Deviation 54.5 H (36.4-46.3) fL Plt Count 163 L (182-369) K/mm3 MPV 9.6 (9.4-12.3) fl Neut % (Auto) 46.3 (34.0-71.1) % Lymph % (Auto) 38.9 (19.3-51.7) % [place] % (Auto) 14.5 H (4.7-12.5) % Eos % (Auto) 0 L (0.7-5.8) Baso % (Auto) 0.0 L (0.1-1.2) % Neut # (Auto) 3.52 (1.56-6.13) K/mm3 Lymph # (Auto) 2.96 (1.18-3.74) K/mm3 [place] # (Auto) 1.10 H (0.24-0.36) K/mm3 Eos # (Auto) 0.00 L (0.04-0.36) K/mm3 Baso # (Auto) 0.00 L (0.01-0.08) K/mm3 PT (9.5-12.1) SECONDS INR Sodium 132 L (136-145) mEq/L Potassium 4.6 (3.5-5.1) mEq/L Chloride 101 (98-107) mEq/L Carbon Dioxide 23 (21-32) mEq/L Anion Gap 12.6 (5-15) BUN 19 H (7-18) mg/dL Creatinine 1.7 H (0.55-1.02) mg/dL Est Cr Clr Drug Dosing 42.59 mL/min Estimated GFR (MDRD) 31 (>60) mL/min BUN/Creatinine Ratio 11.2 L (14-18) Glucose 109 H (74-106) mg/dL Lactic Acid 1.2 (0.4-2.0) mmol/L Calcium 9.0 (8.5-10.1) mg/dL Magnesium (1.8-2.4) mg/dl Total Bilirubin 1.8 H (0.2-1.0) mg/dL AST 59 H (15-37) U/L ALT 30 (14-59) U/L Alkaline Phosphatase 176 H (46-116) U/L C-Reactive Protein (<1.0) mg/dL Total Protein 6.3 L (6.4-8.2) g/dl Albumin 2.3 L (3.4-5.0) g/dl Globulin 4.0 gm/dL Albumin/Globulin Ratio 0.6 L (1-2) Body Fluid Site H[place] Results Last 24 Hours: Microbiology 04/20/18 20:55 Gram Stain - Final Abdominal Fluid - Aspirate Body Fluid Culture - Preliminary NO GROWTH AFTER 4 DAYS 04/20/18 18:39 Aerobic Blood Culture - Preliminary Blood - Venous NO GROWTH AFTER 3 DAYS Anaerobic Blood Culture - Final Streptococcus Species Staphylococcus Epidermidis 04/23/18 05:58 Aerobic Blood Culture - Preliminary Blood - Venous NO GROWTH AFTER 1 DAY Anaerobic Blood Culture - Preliminary NO GROWTH AFTER 1 DAY 04/23/18 06:05 Aerobic Blood Culture - Preliminary Blood - Venous - Lab Draw NO GROWTH AFTER 1 DAY Anaerobic Blood Culture - Preliminary NO GROWTH AFTER 1 DAY 04/20/18 18:45 Aerobic Blood Culture - Preliminary Blood - Venous - Lab Draw NO GROWTH AFTER 3 DAYS Anaerobic Blood Culture - Preliminary NO GROWTH AFTER 3 DAYS Med Orders - Current: Current Medications Famotidine (Pepcid) 20 mg PO BEDTIME [facility] Last Admin: 04/23/18 20:01 Dose: 20 mg Folic Acid (Folic Acid) 1 mg PO BEDTIME [facility] Last Admin: 04/23/18 20:00 Dose: 1 mg Furosemide (Lasix) 40 mg PO DAILY [facility] Last Admin: 04/24/18 08:29 Dose: 40 mg Gabapentin (Neurontin) 200 mg PO TID [facility] Last Admin: 04/24/18 08:30 Dose: 200 mg Heparin Sodium (Porcine) (Heparin Sodium) 5,000 units SUBCUT TID@0700,1400, 2100 [facility] Last Admin: 04/24/18 06:15 Dose: 5,000 units Hydromorphone HCl (Dilaudid) 0.5 mg IVPUSH Q4H PRN PRN Reason: Pain Last Admin: 04/22/18 15:49 Dose: 0.5 mg Metronidazole 500 mg/ Premix 100 mls @ 100 mls/hr IV Q8H [facility] Last Admin: 04/24/18 11:29 Dose: 100 mls/hr Ceftriaxone Sodium 2 gm/ (Sodium Chloride) 100 mls @ 100 mls/hr IV Q24H [facility] Last Admin: 04/24/18 10:36 Dose: 100 mls/hr Magnesium Sulfate (Pharmacy To Dose - Magnesium Replacement) 1 dose .XX ASDIRECTED PRN PRN Reason: RX TO WATCH MG LEVELS Metoclopramide HCl (Reglan) 10 mg IVPUSH Q6H PRN PRN Reason: Nausea/Vomiting Last Admin: 04/22/18 20:05 Dose: 10 mg Multivitamins (Thera) 1 each PO BEDTIME [facility] Last Admin: 04/23/18 19:59 Dose: 1 each Ondansetron HCl (Zofran) 4 mg IVPUSH Q8H PRN PRN Reason: Nausea Last Admin: 04/24/18 10:48 Dose: 4 mg Oxycodone HCl (Oxycodone) 5 mg PO Q4HR PRN PRN Reason: Pain Last Admin: 04/23/18 23:36 Dose: 5 mg Potassium Chloride (Pharmacy To Dose - Potassium Replacement) 1 dose .XX ASDIRECTED PRN PRN Reason: RX TO WATCH K+ LEVELS Rifaximin (Xifaxan) 550 mg PO BID [facility] Last Admin: 04/24/18 08:30 Dose: 550 mg Saccharomyces Boulardii (Florastor) 500 mg PO DAILY [facility] Last Admin: 04/24/18 08:29 Dose: 500 mg Spironolactone (Aldactone) 50 mg PO BID [facility] Last Admin: 04/24/18 08:29 Dose: 50 mg Thiamine HCl (Vitamin B-1) 100 mg PO BEDTIME [facility] Last Admin: 04/23/18 20:02 Dose: 100 mg Discontinued Medications Baclofen (Lioresal) 10 mg PO BID [facility] Last Admin: 04/23/18 08:49 Dose: 10 mg Famotidine (Pepcid) 20 mg PO BID [facility] Last Admin: 04/22/18 20:17 Dose: 20 mg Fentanyl (Sublimaze) 100 mcg IVPUSH ONETIME ONE Stop: 04/20/18 19:28 Last Admin: 04/20/18 21:12 Dose: Not Given Furosemide (Lasix) 20 mg IVPUSH DAILY [facility] Last Admin: 04/21/18 10:43 Dose: 20 mg Furosemide (Lasix) 20 mg IVPUSH BID [facility] Stop: 04/23/18 09:01 Last Admin: 04/23/18 08:49 Dose: 20 mg Furosemide (Lasix) 40 mg PO DAILY [facility] Last Admin: 04/22/18 08:41 Dose: Not Given Gabapentin (Neurontin) 600 mg PO TID [facility] Last Admin: 04/23/18 08:48 Dose: 600 mg Hydromorphone HCl (Dilaudid) 1 mg IVPUSH ONETIME ONE Stop: 04/20/18 18:15 Last Admin: 04/20/18 18:26 Dose: 1 mg Hydromorphone HCl (Dilaudid) 0.5 mg IVPUSH Q4H PRN PRN Reason: Pain Dextrose/Sodium Chloride (Dextrose 5%-Normal Saline) 1,000 mls @ 250 mls/hr IV ASDIRECTED [facility] Last Admin: 04/20/18 18:25 Dose: 250 mls/hr Levofloxacin/Dextrose 750 mg/ (Premix) 150 mls @ 100 mls/hr IV ONETIME ONE Stop: 04/20/18 22:22 Last Admin: 04/20/18 21:09 Dose: 100 mls/hr Potassium Chloride 10 meq/ (Premix) 100 mls @ 100 mls/hr IV ONETIME ONE Stop: 04/20/18 22:37 Last Admin: 04/21/18 01:40 Dose: 100 mls/hr Levofloxacin/Dextrose 750 mg/ (Premix) 150 mls @ 100 mls/hr IV Q24H [facility] Potassium Chloride 10 meq/ (Premix) 100 mls @ 100 mls/hr IV ONETIME ONE Stop: 04/21/18 02:29 Last Admin: 04/21/18 01:47 Dose: Not Given Metronidazole 500 mg/ Premix 100 mls @ 100 mls/hr IV Q8H [facility] Last Admin: 04/21/18 16:06 Dose: Not Given Cefotaxime Sodium 2 gm/ Sodium (Chloride) 50 mls @ 100 mls/hr IV Q8H [facility] Ceftriaxone Sodium 2 gm/ (Sodium Chloride) 100 mls @ 200 mls/hr IV Q24H [facility] Last Admin: 04/23/18 10:22 Dose: 200 mls/hr Ceftriaxone Sodium 2 gm/ (Sodium Chloride) 100 mls @ 200 mls/hr IV ONETIME ONE Stop: 04/21/18 17:59 Last Admin: 04/21/18 17:37 Dose: 200 mls/hr Metronidazole (Flagyl 500 Mg In Ns 100 Ml) Confirm Administered Dose 100 mls @ as directed .ROUTE .STK-MED ONE Stop: 04/24/18 11:28 Last Admin: 04/24/18 11:31 Dose: Not Given Lidocaine HCl (Xylocaine 1%) Confirm Administered Dose 50 ml .ROUTE .STK-MED ONE Stop: 04/21/18 15:37 Last Admin: 04/21/18 16:08 Dose: 50 ml Lidocaine/Epinephrine (Xylocaine 1% With Epinephrine 1:100,000) 20 ml INJECT ONETIME ONE Stop: 04/20/18 19:28 Last Admin: 04/20/18 20:26 Dose: 20 ml Lidocaine/Epinephrine (Xylocaine 1% With Epinephrine 1:100,000) Confirm Administered Dose 20 ml .ROUTE .STK-MED ONE Stop: 04/20/18 20:35 Last Admin: 04/20/18 21:13 Dose: Not Given Lidocaine/Epinephrine (Xylocaine 1% With Epinephrine 1:100,000) 20 ml INJECT ONETIME ONE Stop: 04/20/18 21:14 Last Admin: 04/20/18 20:45 Dose: 20 ml Lorazepam (Ativan) Confirm Administered Dose 2 mg .ROUTE .STK-MED ONE Stop: 04/21/18 15:30 Last Admin: 04/21/18 16:07 Dose: Not Given Lorazepam (Ativan) 0.5 mg IVPUSH ONETIME ONE Stop: 04/21/18 15:32 Last Admin: 04/21/18 16:04 Dose: 0.5 mg Magnesium Hydroxide (Milk Of Magnesia) 30 ml PO ONETIME ONE Stop: 04/21/18 16:33 Last Admin: 04/21/18 17:35 Dose: 30 ml Magnesium Oxide (Magnesium Oxide) 400 mg PO ONETIME ONE Stop: 04/22/18 01:31 Last Admin: 03/13/19 03:33 Dose: 400 mg Metoclopramide HCl (Reglan) 10 mg IVPUSH ONETIME ONE Stop: 04/20/18 18:15 Last Admin: 04/20/18 18:25 Dose: 10 mg Midazolam HCl (Versed 1 Mg/Ml) 5 mg IVPUSH ONETIME ONE Stop: 04/20/18 19:28 Last Admin: 04/20/18 21:10 Dose: Not Given Midazolam HCl (Versed 1 Mg/Ml) Confirm Administered Dose 6 mg .ROUTE .STK-MED ONE Stop: 04/20/18 19:37 Last Admin: 04/20/18 21:13 Dose: Not Given Midazolam HCl (Versed 1 Mg/Ml) 4 mg IVPUSH ONETIME ONE Stop: 04/20/18 21:00 Last Admin: 04/20/18 20:30 Dose: 2 mg Potassium Chloride (Klor-Con M20) 40 meq PO BID [facility] Stop: 04/22/18 21:01 Last Admin: 04/21/18 17:09 Dose: Not Given Potassium Chloride (Klor-Con M20) 40 meq PO BID [facility] Stop: 04/22/18 21:01 Last Admin: 04/22/18 20:18 Dose: 40 meq Spironolactone (Aldactone) 25 mg PO BID [facility] Last Admin: 04/21/18 10:41 Dose: 25 mg Temazepam (Restoril) 7.5 mg PO BEDTIME PRN PRN Reason: Insomnia - Exam General: Alert, Oriented, Cooperative, No Acute Distress HEENT: Pupils Equal, Pupils Reactive, EOMI, Mucous Membr. Moist/[place]. No: Scleral Icterus Neck: Supple Lungs: Clear to Auscultation, Normal Respiratory Effort Cardiovascular: Regular Rate, Regular Rhythm, Murmurs GI/Abdominal Exam: Normal Bowel Sounds, Soft, No Organomegaly, No Distention, No Abnormal Bruit, No Mass, Tender, Other (abdominal size appears about the same as yesterday) (Female) Exam: Deferred Back Exam: Normal Inspection, Decreased Range of Motion Extremities: Normal Inspection, No Pedal Edema, Normal Capillary Refill Peripheral Pulses: 2+: Dorsalis Pedis (L), Dorsalis Pedis (R) Skin: Warm, Dry, Intact Neurological: No New Focal Deficit Psy/Mental Status: Alert, Normal Affect, Normal Mood. No: Anxious, Depressed, Agitated, Withdrawal Symptoms - Problem List Review Problem List Initiated/Reviewed/Updated: Yes - My Orders Last 24 Hours: My Active Orders 04/23/18 21:00 Famotidine [Pepcid] 20 mg PO BEDTIME 04/24/18 09:00 Furosemide [Lasix] 40 mg PO DAILY 04/24/18 11:00 cefTRIAXone [Rocephin] 2 gm Sodium Chloride 0.9% [Normal Saline] 100 ml IV Q24H 04/24/18 11:32 Abdomen Pelvis wo Cont [CT] Routine 04/24/18 11:33 Chest 1V Frontal [CR] Routine 04/25/18 05:11 CBC WITH AUTO DIFF [HEME] AM CMP [COMPREHENSIVE METABOLIC PN,CMP] [CHEM] AM INR,PT,PROTHROMBIN TIME [COAG] AM 04/26/18 05:11 CMP [COMPREHENSIVE METABOLIC PN,CMP] [CHEM] AM 04/27/18 07:00 CBC W/O DIFF,HEMOGRAM [HEME] MOTH@0700 04/30/18 07:00 CBC W/O DIFF,HEMOGRAM [HEME] MOTH@0700 05/04/18 07:00 CBC W/O DIFF,HEMOGRAM [HEME] MOTH@0700 05/07/18 07:00 CBC W/O DIFF,HEMOGRAM [HEME] MOTH@0700 05/11/18 07:00 CBC W/O DIFF,HEMOGRAM [HEME] MOTH@0700 - Plan Plan:: Impression/Plan: Acute: Decompensated Liver Failure S/p Paracentesis, Stable - 2/2 Liver Cirrhosis (Stage 4 Fibrosis) with active moderate steatohepatitis , ductular proliferation and fatty change (10-15% macrovesicular type) - Seen and evaluated by Dr. Bliss in [place] and underwent liver biopsy pending result - Recently has paracentesis and in 2 weeks she re-accumulated - Had paracentesis in ED on admission with 6L abdominal ascites removed - She is currently on IV Flagyl and Rocephin prophylaxis for post procedural bacterial peritonitis - Ascites fluid shows WBC is 0.16; rest of her labs are wnl - INR now is 1.47 from 1.56 yesterday; INR now is 1.44 - Initial MELD Score is 18 with 6% Estimated 3-month Mortality - Offered repeat abdominal CT scan and chest x-ray; patient agreed--> result of both images show no changes and fairly stable from previous images Possible Bacteremia vs Contamination - S/p Paracentesis in ED on admission - 02/12 bottles shows Streptoccocus Species and Probable Staph Species - Currently on IV Flagyl and Rocephin - Repeat blood culture so far after 24 hrs is negative Malnutrition - Total Protein 7.2 --> 6.3 - Dietary consult for protein wasting Resolved: S/p E-lytes Abnormality - Hypokalemia and Hypomagnesemia - K 3.2--> 4.2 and Mg 1.6--> 1.9 - Increased Aldactone dose - Pharmacy to replete and monitor Large Left Sided Pleural Effusion - Cannot r/o Hepato-Pulmonary Syndrome - S/p Thoracentesis w/ estimated 855 ml of straw colored pleural fluids - IS as tolerated S/p Hepatic Encephalopathy - Has underlying Liver Cirrhosis (likely ESLD) - Confused and now sharp mentally last night and this AM - She is only on Percocet for pain control Chronic: PTSD Depression Spinal stenosis, cervical Back Pain Scoliosis Portal HTN Class I Obese Polypharmacy 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 Bliss, query transplant work Need EMR from [place] provider Encourage to ambulate as tolerated LOS > 96 hrs pending repeat blood culture for 48 hrs and further diuresis Reviewed medical records obtained from [place]: She has seen Dr. Jon in January and was diagnosed with HELMS with normal A1A and Ceruloplasmin level, Negative for Hepatitis Panel, AMA, ASMA and RIDGE. She underwent liver biopsy on with findings of Liver Cirrhosis (Stage 4 Fibrosis) with active moderate steatohepatitis, ductular proliferation and fatty change (10-15% macrovesicular type).
--- NOTE | 2018-04-24 13:19 | CT ---
CT abdomen and pelvis Technique: Multiple axial sections were obtained from above the dome of the diaphragm inferiorly through the pubic symphysis. Comparison: Prior CT abdomen and pelvis exam of 04/20/18. Findings: Small to moderate size left-sided pleural effusion is seen causing mild compressive atelectasis. Moderate to marked amount of ascites is seen throughout the abdomen and pelvis. Liver has cirrhotic appearance. Spleen appears within normal limits. Adrenal glands show no nodule. Kidneys appear without hydronephrosis or discrete mass. Increased density noted within the gallbladder presumably representing vicarious excretion of contrast. Pancreas is normal. Aorta shows atherosclerotic change. No retroperitoneal adenopathy seen. No pelvic mass or adenopathy is seen. No mesenteric abnormalities are seen. No bowel dilatation is seen. Bone window settings were reviewed which show scoliosis and degenerative change within the spine. Impression: 1. Ascites identified throughout the abdomen and pelvis which appears fairly stable in amount from previous exam. Stable changes of cirrhosis are noted. 2. Small to moderate size left-sided pleural effusion which has diminished in size from prior exam causing mild compressive atelectasis within the left base. 3. Other incidental findings as noted above. Diagnostic code #3
--- NOTE | 2018-04-24 14:06 | CR ---
Chest: Portable view of the chest was obtained. Comparison: Prior chest x-ray of 04/21/18. Heart size is normal. Tortuous thoracic aorta is seen with scoliosis. Lungs are clear with no acute parenchymal change. Bony structures are grossly intact. Impression: 1. Incidental findings. Nothing acute is appreciated. Diagnostic code #2
[2018-04-24] MEDS: Multivitamins,Therapeutic Tab PO SCH (21:41)
[2018-04-24] MEDS: Folic Acid 1 MG Tab PO SCH (21:42)
[2018-04-24] MEDS: Famotidine 20 MG Tab PO SCH (21:42)
[2018-04-24] MEDS: Thiamine 100 MG Tab PO SCH (21:43)
[2018-04-24] MEDS: Benzocaine/Cetylpyridinium/Menthol Lozenge MUCMEM PRN (23:23)
[2018-04-25] MEDS: metroNIDAZOLE/Normal Saline 500 MG in Premix Bag 1 BAG IV SCH ×2 (03:52→11:41)
[2018-04-25] MEDS: Heparin Sodium 5,000 Units/ML Vial SUBCUT SCH ×3 (06:12→20:52)
[2018-04-25] MEDS: Benzocaine/Cetylpyridinium/Menthol Lozenge MUCMEM PRN ×2 (06:12→22:40)
[2018-04-25] MEDS: Spironolactone 25 MG Tab PO SCH (08:29)
[2018-04-25] MEDS: Gabapentin 100 MG Cap PO SCH ×3 (08:29→20:51)
[2018-04-25] MEDS: Rifaximin 550 MG Tab PO SCH ×2 (08:29→20:52)
[2018-04-25] MEDS: Furosemide 40 MG Tab PO SCH (08:29)
[2018-04-25] MEDS: Saccharomyces Boulardii (Probiotic) 250 MG Cap PO SCH (08:29)
[2018-04-25] MEDS ORDERED: Hydrochlorothiazide 12.5 MG Cap PO ONE (09:12)
[2018-04-25] MEDS ORDERED: Lisinopril 10 MG Tab PO ONE (09:15)
[2018-04-25] MEDS: Lisinopril 10 MG Tab PO SCH (09:45)
[2018-04-25] MEDS: cefTRIAXone 2 GM in Sodium Chloride 0.9% 100 ML IV SCH (11:43)
[2018-04-25] MEDS: Ondansetron 4 MG/2 ML SDV IVPUSH PRN (13:24)
[2018-04-25] MEDS: Metoclopramide 10 MG/2 ML SDV IVPUSH PRN (15:01)
[2018-04-25] MEDS: HYDROmorphone 1 MG/ML Syringe IVPUSH PRN (15:19)
[2018-04-25] MEDS: Furosemide 20 MG/2 ML VIAL IVPUSH SCH ×2 (17:28→20:53)
[2018-04-25] MEDS: Hydrochlorothiazide 12.5 MG Cap PO SCH (17:29)
--- NOTE | 2018-04-25 17:47 | PCM.PN ---
- General Info Date of Service: 04/25/18 Admission Dx/Problem (Free Text): Admission Diagnosis/Problem Admission Diagnosis/Problem Cirrhosis of liver with ascites Subjective Update: Follow Up Functional Status: Reports: Pain Controlled, Tolerating Diet, Ambulating, Urinating, New Symptoms - Review of Systems General: Denies: Fever, Weakness, Fatigue, Malaise, Chills, Night Sweats HEENT: Reports: No Symptoms Pulmonary: Denies: Shortness of Breath Cardiovascular: Denies: Chest Pain, Dyspnea on Exertion, Lightheadedness Gastrointestinal: Reports: Diarrhea. Denies: Abdominal Pain, Decreased Appetite , Nausea, Vomiting Genitourinary: Reports: No Symptoms Musculoskeletal: Denies: Neck Pain Skin: Denies: Cyanosis, Jaundice, Mottled, Diaphoresis, Bruising, Pruritis Neurological: Denies: Confusion, Dizziness, Seizure, Difficulty Walking, Weakness, Gait Disturbance Psychiatric: Denies: Confusion, Depression, Mood Lability, Anxiety, Agitation, Hallucinations Systems Review Comment:: She had a rough night due to diarrhea (she is on xifaxan). She feels a bit tired and exhausted. His Labs are fairly stable. However she continues continues to gain weight despite being on fluid and salt restrictions. - Patient Data Vitals - Most Recent: Last Vital Signs Temp 36.8 C 04/25/18 14:18 Pulse 85 04/25/18 14:18 Resp 16 04/25/18 14:18 BP 110/66 04/25/18 14:18 Pulse Ox 100 04/25/18 14:18 Weight - Most Recent: 101.333 kg I&O - Last 24 Hours: Intake & Output 04/25/18 04/25/18 04/25/18 06:59 14:59 22:59 Intake Total 600 200 Balance 600 200 Lab Results Last 24 Hours: Laboratory Results - last 24 hr 04/25/18 04/25/18 04/25/18 Range/Units 05:25 05:25 05:25 WBC (3.98-10.04) K/mm3 RBC (3.98-5.22) M/mm3 Hgb (11.2-15.7) gm/L Hct (34.1-44.9) % MCV (79.4-94.8) fl MCH (25.6-32.2) pg MCHC (32.2-35.5) g/dl RDW Std Deviation (36.4-46.3) fL Plt Count (182-369) K/mm3 MPV (9.4-12.3) fl Neut % (Auto) (34.0-71.1) % Lymph % (Auto) (19.3-51.7) % Carbon % (Auto) (4.7-12.5) % Eos % (Auto) (0.7-5.8) Baso % (Auto) (0.1-1.2) % Neut # (Auto) (1.56-6.13) K/mm3 Lymph # (Auto) (1.18-3.74) K/mm3 Carbon # (Auto) (0.24-0.36) K/mm3 Eos # (Auto) (0.04-0.36) K/mm3 Baso # (Auto) (0.01-0.08) K/mm3 Manual Slide Review PT 15.3 H (9.5-12.1) SECONDS INR 1.41 Sodium (136-145) mEq/L Potassium (3.5-5.1) mEq/L Chloride (98-107) mEq/L Carbon Dioxide (21-32) mEq/L Anion Gap (5-15) BUN (7-18) mg/dL Creatinine (0.55-1.02) mg/dL Est Cr Clr Drug Dosing mL/min Estimated GFR (MDRD) (>60) mL/min BUN/Creatinine Ratio (14-18) Glucose (74-106) mg/dL Lactic Acid 1.4 (0.4-2.0) mmol/L Calcium (8.5-10.1) mg/dL Magnesium 1.8 (1.8-2.4) mg/dl Total Bilirubin (0.2-1.0) mg/dL AST (15-37) U/L ALT (14-59) U/L Alkaline Phosphatase (46-116) U/L C-Reactive Protein 2.3 H* (<1.0) mg/dL Total Protein (6.4-8.2) g/dl Albumin (3.4-5.0) g/dl Globulin gm/dL Albumin/Globulin Ratio (1-2) C.difficile [id number] C. difficile Tox (PCR) 04/25/18 04/25/18 04/25/18 Range/Units 05:25 05:25 14:55 WBC 7.22 (3.98-10.04) K/mm3 RBC 4.76 (3.98-5.22) M/mm3 Hgb 14.0 (11.2-15.7) gm/L Hct 40.7 (34.1-44.9) % MCV 85.5 (79.4-94.8) fl MCH 29.4 (25.6-32.2) pg MCHC 34.4 (32.2-35.5) g/dl RDW Std Deviation 53.5 H (36.4-46.3) fL Plt Count 156 L (182-369) K/mm3 MPV 9.9 (9.4-12.3) fl Neut % (Auto) 51.4 (34.0-71.1) % Lymph % (Auto) 33.0 (19.3-51.7) % Carbon % (Auto) 15.4 H (4.7-12.5) % Eos % (Auto) 0 L (0.7-5.8) Baso % (Auto) 0.1 (0.1-1.2) % Neut # (Auto) 3.71 (1.56-6.13) K/mm3 Lymph # (Auto) 2.38 (1.18-3.74) K/mm3 Carbon # (Auto) 1.11 H (0.24-0.36) K/mm3 Eos # (Auto) 0.00 L (0.04-0.36) K/mm3 Baso # (Auto) 0.01 (0.01-0.08) K/mm3 Manual Slide Review Normal smear PT (9.5-12.1) SECONDS INR Sodium 133 L (136-145) mEq/L Potassium 4.3 (3.5-5.1) mEq/L Chloride 102 (98-107) mEq/L Carbon Dioxide 23 (21-32) mEq/L Anion Gap 12.3 (5-15) BUN 20 H (7-18) mg/dL Creatinine 1.6 H (0.55-1.02) mg/dL Est Cr Clr Drug Dosing 45.25 mL/min Estimated GFR (MDRD) 34 (>60) mL/min BUN/Creatinine Ratio 12.5 L (14-18) Glucose 110 H (74-106) mg/dL Lactic Acid (0.4-2.0) mmol/L Calcium 8.8 (8.5-10.1) mg/dL Magnesium (1.8-2.4) mg/dl Total Bilirubin 1.8 H (0.2-1.0) mg/dL AST 58 H (15-37) U/L ALT 32 (14-59) U/L Alkaline Phosphatase 170 H (46-116) U/L C-Reactive Protein (<1.0) mg/dL Total Protein 6.3 L (6.4-8.2) g/dl Albumin 2.3 L (3.4-5.0) g/dl Globulin 4.0 gm/dL Albumin/Globulin Ratio 0.6 L (1-2) C.difficile [id number] Presumptive negative C. difficile Tox (PCR) Negative Humberto Results Last 24 Hours: Microbiology 04/20/18 20:55 Gram Stain - Final Abdominal Fluid - Aspirate Body Fluid Culture - Preliminary NO GROWTH AFTER 5 DAYS 04/23/18 06:05 Aerobic Blood Culture - Preliminary Blood - Venous - Lab Draw NO GROWTH AFTER 2 DAYS Anaerobic Blood Culture - Preliminary NO GROWTH AFTER 2 DAYS 04/23/18 05:58 Aerobic Blood Culture - Preliminary Blood - Venous NO GROWTH AFTER 2 DAYS Anaerobic Blood Culture - Preliminary NO GROWTH AFTER 2 DAYS 04/20/18 18:39 Aerobic Blood Culture - Preliminary Blood - Venous NO GROWTH AFTER 4 DAYS Anaerobic Blood Culture - Final Streptococcus Species Staphylococcus Epidermidis 04/20/18 18:45 Aerobic Blood Culture - Preliminary Blood - Venous - Lab Draw NO GROWTH AFTER 4 DAYS Anaerobic Blood Culture - Preliminary NO GROWTH AFTER 4 DAYS Med Orders - Current: Current Medications Benzocaine/Menthol (Cepacol Sore Throat) 1 lozenge MUCMEM Q2H PRN PRN Reason: Throat Irritation Last Admin: 04/25/18 06:12 Dose: 1 lozenge Famotidine (Pepcid) 20 mg PO BEDTIME TAL Last Admin: 04/24/18 21:42 Dose: 20 mg Folic Acid (Folic Acid) 1 mg PO BEDTIME TAL Last Admin: 04/24/18 21:42 Dose: 1 mg Furosemide (Lasix) 40 mg PO DAILY TAL Furosemide (Lasix) 10 mg IVPUSH BID TAL Stop: 04/27/18 21:01 Last Admin: 04/25/18 17:28 Dose: 10 mg Gabapentin (Neurontin) 200 mg PO TID [facility] Last Admin: 04/25/18 14:32 Dose: 200 mg Heparin Sodium (Porcine) (Heparin Sodium) 5,000 units SUBCUT TID@0700,1400, 2100 [facility] Last Admin: 04/25/18 14:32 Dose: 5,000 units Hydrochlorothiazide (Hydrochlorothiazide) 12.5 mg PO BIDDIURETIC [facility] Last Admin: 04/25/18 17:29 Dose: 12.5 mg Hydromorphone HCl (Dilaudid) 0.5 mg IVPUSH Q4H PRN PRN Reason: Pain Last Admin: 04/25/18 15:19 Dose: 0.5 mg Lisinopril (Prinivil) 10 mg PO DAILY [facility] Last Admin: 04/25/18 09:45 Dose: 10 mg Magnesium Sulfate (Pharmacy To Dose - Magnesium Replacement) 1 dose .XX ASDIRECTED PRN PRN Reason: RX TO WATCH MG LEVELS Metoclopramide HCl (Reglan) 10 mg IVPUSH Q6H PRN PRN Reason: Nausea/Vomiting Last Admin: 04/25/18 15:01 Dose: 10 mg Multivitamins (Thera) 1 each PO BEDTIME [facility] Last Admin: 04/24/18 21:41 Dose: 1 each Ondansetron HCl (Zofran) 4 mg IVPUSH Q8H PRN PRN Reason: Nausea Last Admin: 04/25/18 13:24 Dose: 4 mg Oxycodone HCl (Oxycodone) 5 mg PO Q4HR PRN PRN Reason: Pain Last Admin: 04/23/18 23:36 Dose: 5 mg Potassium Chloride (Pharmacy To Dose - Potassium Replacement) 1 dose .XX ASDIRECTED PRN PRN Reason: RX TO WATCH K+ LEVELS Rifaximin (Xifaxan) 550 mg PO BID [facility] Last Admin: 04/25/18 08:29 Dose: 550 mg Saccharomyces Boulardii (Florastor) 500 mg PO DAILY [facility] Last Admin: 04/25/18 08:29 Dose: 500 mg Spironolactone (Aldactone) 100 mg PO BID [facility] Thiamine HCl (Vitamin B-1) 100 mg PO BEDTIME [facility] Last Admin: 04/24/18 21:43 Dose: 100 mg Discontinued Medications Baclofen (Lioresal) 10 mg PO BID [facility] Last Admin: 04/23/18 08:49 Dose: 10 mg Famotidine (Pepcid) 20 mg PO BID [facility] Last Admin: 04/22/18 20:17 Dose: 20 mg Fentanyl (Sublimaze) 100 mcg IVPUSH ONETIME ONE Stop: 04/20/18 19:28 Last Admin: 04/20/18 21:12 Dose: Not Given Furosemide (Lasix) 20 mg IVPUSH DAILY [facility] Last Admin: 04/21/18 10:43 Dose: 20 mg Furosemide (Lasix) 20 mg IVPUSH BID [facility] Stop: 04/23/18 09:01 Last Admin: 04/23/18 08:49 Dose: 20 mg Furosemide (Lasix) 40 mg PO DAILY [facility] Last Admin: 04/22/18 08:41 Dose: Not Given Furosemide (Lasix) 40 mg PO DAILY [facility] Last Admin: 04/25/18 08:29 Dose: 40 mg Furosemide (Lasix) 20 mg IVPUSH BID [facility] Gabapentin (Neurontin) 600 mg PO TID [facility] Last Admin: 04/23/18 08:48 Dose: 600 mg Hydrochlorothiazide (Hydrochlorothiazide) 12.5 mg PO ONETIME ONE Stop: 04/25/18 09:13 Last Admin: 04/25/18 09:45 Dose: 12.5 mg Hydromorphone HCl (Dilaudid) 1 mg IVPUSH ONETIME ONE Stop: 04/20/18 18:15 Last Admin: 04/20/18 18:26 Dose: 1 mg Hydromorphone HCl (Dilaudid) 0.5 mg IVPUSH Q4H PRN PRN Reason: Pain Dextrose/Sodium Chloride (Dextrose 5%-Normal Saline) 1,000 mls @ 250 mls/hr IV ASDIRECTED [facility] Last Admin: 04/20/18 18:25 Dose: 250 mls/hr Levofloxacin/Dextrose 750 mg/ (Premix) 150 mls @ 100 mls/hr IV ONETIME ONE Stop: 04/20/18 22:22 Last Admin: 04/20/18 21:09 Dose: 100 mls/hr Potassium Chloride 10 meq/ (Premix) 100 mls @ 100 mls/hr IV ONETIME ONE Stop: 04/20/18 22:37 Last Admin: 04/21/18 01:40 Dose: 100 mls/hr Levofloxacin/Dextrose 750 mg/ (Premix) 150 mls @ 100 mls/hr IV Q24H [facility] Potassium Chloride 10 meq/ (Premix) 100 mls @ 100 mls/hr IV ONETIME ONE Stop: 04/21/18 02:29 Last Admin: 04/21/18 01:47 Dose: Not Given Metronidazole 500 mg/ Premix 100 mls @ 100 mls/hr IV Q8H [facility] Last Admin: 04/21/18 16:06 Dose: Not Given Cefotaxime Sodium 2 gm/ Sodium (Chloride) 50 mls @ 100 mls/hr IV Q8H [facility] Metronidazole 500 mg/ Premix 100 mls @ 100 mls/hr IV Q8H [facility] Stop: 04/25/18 12:00 Last Admin: 04/25/18 11:41 Dose: 100 mls/hr Ceftriaxone Sodium 2 gm/ (Sodium Chloride) 100 mls @ 200 mls/hr IV Q24H [facility] Last Admin: 04/24/18 12:20 Dose: Not Given Ceftriaxone Sodium 2 gm/ (Sodium Chloride) 100 mls @ 200 mls/hr IV ONETIME ONE Stop: 04/21/18 17:59 Last Admin: 04/21/18 17:37 Dose: 200 mls/hr Ceftriaxone Sodium 2 gm/ (Sodium Chloride) 100 mls @ 100 mls/hr IV Q24H [facility] Stop: 04/25/18 12:00 Last Admin: 04/25/18 11:43 Dose: 100 mls/hr Metronidazole (Flagyl 500 Mg In Ns 100 Ml) Confirm Administered Dose 100 mls @ as directed .ROUTE .STK-MED ONE Stop: 04/24/18 11:28 Last Admin: 04/24/18 11:31 Dose: Not Given Lidocaine HCl (Xylocaine 1%) Confirm Administered Dose 50 ml .ROUTE .STK-MED ONE Stop: 04/21/18 15:37 Last Admin: 04/21/18 16:08 Dose: 50 ml Lidocaine/Epinephrine (Xylocaine 1% With Epinephrine 1:100,000) 20 ml INJECT ONETIME ONE Stop: 04/20/18 19:28 Last Admin: 04/20/18 20:26 Dose: 20 ml Lidocaine/Epinephrine (Xylocaine 1% With Epinephrine 1:100,000) Confirm Administered Dose 20 ml .ROUTE .STK-MED ONE Stop: 04/20/18 20:35 Last Admin: 04/20/18 21:13 Dose: Not Given Lidocaine/Epinephrine (Xylocaine 1% With Epinephrine 1:100,000) 20 ml INJECT ONETIME ONE Stop: 04/20/18 21:14 Last Admin: 04/20/18 20:45 Dose: 20 ml Lisinopril (Prinivil) 10 mg PO ONETIME ONE Stop: 04/25/18 09:16 Last Admin: 04/25/18 10:16 Dose: Not Given Lorazepam (Ativan) Confirm Administered Dose 2 mg .ROUTE .STK-MED ONE Stop: 04/21/18 15:30 Last Admin: 04/21/18 16:07 Dose: Not Given Lorazepam (Ativan) 0.5 mg IVPUSH ONETIME ONE Stop: 04/21/18 15:32 Last Admin: 04/21/18 16:04 Dose: 0.5 mg Magnesium Hydroxide (Milk Of Magnesia) 30 ml PO ONETIME ONE Stop: 04/21/18 16:33 Last Admin: 04/21/18 17:35 Dose: 30 ml Magnesium Oxide (Magnesium Oxide) 400 mg PO ONETIME ONE Stop: 04/22/18 01:31 Last Admin: 04/22/18 03:33 Dose: 400 mg Metoclopramide HCl (Reglan) 10 mg IVPUSH ONETIME ONE Stop: 04/20/18 18:15 Last Admin: 04/20/18 18:25 Dose: 10 mg Midazolam HCl (Versed 1 Mg/Ml) 5 mg IVPUSH ONETIME ONE Stop: 04/20/18 19:28 Last Admin: 04/20/18 21:10 Dose: Not Given Midazolam HCl (Versed 1 Mg/Ml) Confirm Administered Dose 6 mg .ROUTE .STK-MED ONE Stop: 04/20/18 19:37 Last Admin: 04/20/18 21:13 Dose: Not Given Midazolam HCl (Versed 1 Mg/Ml) 4 mg IVPUSH ONETIME ONE Stop: 04/20/18 21:00 Last Admin: 04/20/18 20:30 Dose: 2 mg Potassium Chloride (Klor-Con M20) 40 meq PO BID TAL Stop: 04/22/18 21:01 Last Admin: 04/21/18 17:09 Dose: Not Given Potassium Chloride (Klor-Con M20) 40 meq PO BID [facility] Stop: 04/22/18 21:01 Last Admin: 04/22/18 20:18 Dose: 40 meq Spironolactone (Aldactone) 25 mg PO BID [facility] Last Admin: 04/21/18 10:41 Dose: 25 mg Spironolactone (Aldactone) 50 mg PO BID [facility] Last Admin: 04/25/18 08:29 Dose: 50 mg Temazepam (Restoril) 7.5 mg PO BEDTIME PRN PRN Reason: Insomnia - Exam General: Alert, Oriented, Cooperative, No Acute Distress HEENT: Pupils Equal, Pupils Reactive, EOMI, Mucous Membr. Moist/[place]. No: Scleral Icterus Neck: Supple Lungs: Normal Respiratory Effort, Decreased Breath Sounds, Crackles (at the left base) Cardiovascular: Regular Rate, Regular Rhythm, Murmurs GI/Abdominal Exam: Normal Bowel Sounds, Soft, Non-Tender, No Organomegaly, No Abnormal Bruit, Distended, Hepatomegaly, Splenomegaly. No: Guarding, Rigid, Rebound, Abnormal Bowel Sounds, Hernia (Female) Exam: Deferred Back Exam: Normal Inspection, Decreased Range of Motion Extremities: Normal Inspection, Normal Range of Motion, Non-Tender, No Pedal Edema, Normal Capillary Refill Peripheral Pulses: 2+: Posterior Tibial (R), Dorsalis Pedis (R) Skin: Warm, Dry, Intact Neurological: No New Focal Deficit Psy/Mental Status: Alert, Normal Affect, Normal Mood - Problem List Review Problem List Initiated/Reviewed/Updated: Yes - My Orders Last 24 Hours: My Active Orders 04/24/18 23:07 Benzocaine/Cetylpyrd/Menthol [Cepacol Sore Throat] 1 lozenge MUCMEM Q2H PRN 04/25/18 09:30 Lisinopril [Prinivil] 10 mg PO DAILY 04/25/18 18:00 Furosemide [Lasix] 10 mg IVPUSH BID hydroCHLOROthiazide 12.5 mg PO BIDDIURETIC 04/25/18 21:00 Spironolactone [Aldactone] 100 mg PO BID 04/26/18 05:11 CMP [COMPREHENSIVE METABOLIC PN,CMP] [CHEM] AM 04/27/18 07:00 CBC W/O DIFF,HEMOGRAM [HEME] MOTH@0700 04/28/18 09:00 Furosemide [Lasix] 40 mg PO DAILY 04/30/18 07:00 CBC W/O DIFF,HEMOGRAM [HEME] MOTH@69905/04/18 07:00 CBC W/O DIFF,HEMOGRAM [HEME] MOTH@69905/07/18 07:00 CBC W/O DIFF,HEMOGRAM [HEME] MOTH@69905/11/18 07:00 CBC W/O DIFF,HEMOGRAM [HEME] MOTH@699 - Plan Plan:: Impression/Plan: Acute: Decompensated Liver Failure S/p Paracentesis - 2/2 Liver Cirrhosis (Stage 4 Fibrosis) with active moderate steatohepatitis , ductular proliferation and fatty change (10-15% macrovesicular type) - Seen and evaluated by Dr. Bliss in [place] and underwent liver biopsy pending result - Recently has paracentesis and in 2 weeks she re-accumulated - Had paracentesis in ED on admission with 6L abdominal ascites removed - She is currently on IV Flagyl and Rocephin prophylaxis for post procedural bacterial peritonitis - Ascites fluid shows WBC is 0.16; rest of her labs are wnl - INR now is 1.47 from 1.56 yesterday; INR now is 1.41 - Initial MELD Score is 18 with 6% Estimated 3-month Mortality - Offered repeat abdominal CT scan and chest x-ray; patient agreed--> result of both images show no changes and fairly stable from previous images 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 - Weight gain of 101 kg (baseline weigh of 96 kg on admission) - Lisinopril 10 mg po daily - Lasix 10 mg po IVP BID - Change Aldacton to 100 mg po BID - Change fluid restriction to 1800 from 2L Malnutrition - Total Protein 7.2 --> 6.3 - Dietary consult for protein wasting Resolved: S/p E-lytes Abnormality - Hypokalemia and Hypomagnesemia - K 3.2--> 4.2 and Mg 1.6--> 1.9 - Increased Aldactone dose - Pharmacy to replete and monitor Large Left Sided Pleural Effusion - Cannot r/o Hepato-Pulmonary Syndrome - S/p Thoracentesis w/ estimated 855 ml of straw colored pleural fluids - IS as tolerated S/p Hepatic Encephalopathy - Has underlying Liver Cirrhosis (likely ESLD) - Confused and now sharp mentally last night and this AM - She is only on Percocet for pain control S/p Possible Bacteremia vs Contamination - S/p Paracentesis in ED on admission - 02/12 bottles shows Streptoccocus Species and Probable Staph Species - Currently on IV Flagyl and Rocephin - Repeat blood culture so far after 24 hrs is negative Chronic: PTSD Depression Spinal stenosis, cervical Back Pain Scoliosis Portal HTN Class I Obese Polypharmacy 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 Bliss, query transplant work Need EMR from [place] provider Encourage to ambulate as tolerated LOS > 96 hrs for further diuresis due weight gain and refractory ascites by hyperaldosteronism
[2018-04-25] MEDS ORDERED: Furosemide 40 MG/4 ML VIAL IVPUSH SCH (18:00)
[2018-04-25] MEDS: Spironolactone 100 MG Tab PO SCH (20:51)
[2018-04-25] MEDS: Famotidine 20 MG Tab PO SCH (20:52)
[2018-04-25] MEDS: Folic Acid 1 MG Tab PO SCH (20:52)
[2018-04-25] MEDS: Multivitamins,Therapeutic Tab PO SCH (20:53)
[2018-04-25] MEDS: Thiamine 100 MG Tab PO SCH (20:54)
[2018-04-26] MEDS: Hydrochlorothiazide 12.5 MG Cap PO SCH ×2 (06:50→14:09)
[2018-04-26] MEDS: Heparin Sodium 5,000 Units/ML Vial SUBCUT SCH ×3 (06:50→22:08)
[2018-04-26] MEDS: Rifaximin 550 MG Tab PO SCH ×2 (08:21→22:07)
[2018-04-26] MEDS: Saccharomyces Boulardii (Probiotic) 250 MG Cap PO SCH (08:21)
[2018-04-26] MEDS: Lisinopril 10 MG Tab PO SCH (08:21)
[2018-04-26] MEDS: Gabapentin 100 MG Cap PO SCH ×3 (08:23→22:07)
[2018-04-26] MEDS: Spironolactone 100 MG Tab PO SCH ×2 (08:23→22:07)
[2018-04-26] MEDS: Furosemide 20 MG/2 ML VIAL IVPUSH SCH (08:26)
[2018-04-26] MEDS: Metoclopramide 10 MG/2 ML SDV IVPUSH PRN (10:54)
[2018-04-26] MEDS ORDERED: Furosemide 100 MG in Sodium Chloride 0.9% 90 ML IV SCH (11:00)
[2018-04-26] MEDS ORDERED: Spironolactone 100 MG Tab PO ONE (11:00)
--- NOTE | 2018-04-26 11:07 | PCM.PN ---
- General Info Date of Service: 04/26/18 Admission Dx/Problem (Free Text): Admission Diagnosis/Problem Admission Diagnosis/Problem Cirrhosis of liver with ascites Subjective Update: Follow Up Functional Status: Reports: Pain Controlled, Tolerating Diet, Ambulating, Urinating. Denies: New Symptoms - Review of Systems General: Denies: Fever, Weakness, Fatigue, Malaise, Chills HEENT: Reports: No Symptoms Pulmonary: Denies: Shortness of Breath, Pleuritic Chest Pain, Sputum Cardiovascular: Denies: Chest Pain, Palpitations, Dyspnea on Exertion, Edema, Lightheadedness Gastrointestinal: Reports: Diarrhea, Flatus. Denies: Abdominal Pain, Constipation, Decreased Appetite, Nausea, Vomiting Genitourinary: Reports: No Symptoms Musculoskeletal: Reports: Back Pain. Denies: Neck Pain, Arm Pain, Hand Pain Skin: Reports: Bruising. Denies: Cyanosis, Jaundice, Mottled, Pallor, Diaphoresis, Rash Neurological: Denies: Confusion, Headache, Numbness, Seizure, Syncope, Difficulty Walking, Weakness, Gait Disturbance Psychiatric: Denies: Confusion, Depression, Anxiety, Agitation, Hallucinations Systems Review Comment:: No overnight or acute issues. She is relatively stable but she continues to gain weight and lose waste protein/albumin. Her diarrhea is becoming more frequent although she is on xifaxan. Despite having paracentesis, thoracentesis as well as salt and fluid restrictions, patient continues to slowly gain weight. Her bilirubin is stable and she does not appear to much encephalopathic. - Patient Data Vitals - Most Recent: Last Vital Signs Temp 36.8 C 04/26/18 02:56 Pulse 71 04/26/18 02:56 Resp 16 04/26/18 02:56 BP 101/63 04/26/18 08:21 Pulse Ox 97 04/26/18 02:56 Weight - Most Recent: 101.968 kg I&O - Last 24 Hours: Intake & Output 04/25/18 04/26/18 04/26/18 22:59 06:59 14:59 Intake Total 820 400 400 Output Total 100 Balance 820 300 400 Lab Results Last 24 Hours: Laboratory Results - last 24 hr 04/25/18 04/26/18 04/26/18 Range/Units 14:55 05:55 05:55 Sodium (136-145) mEq/L Potassium (3.5-5.1) mEq/L Chloride (98-107) mEq/L Carbon Dioxide (21-32) mEq/L Anion Gap (5-15) BUN (7-18) mg/dL Creatinine (0.55-1.02) mg/dL Est Cr Clr Drug Dosing mL/min Estimated GFR (MDRD) (>60) mL/min BUN/Creatinine Ratio (14-18) Glucose (74-106) mg/dL Lactic Acid 1.1 (0.4-2.0) mmol/L Calcium (8.5-10.1) mg/dL Magnesium 1.6 L (1.8-2.4) mg/dl Total Bilirubin (0.2-1.0) mg/dL AST (15-37) U/L ALT (14-59) U/L Alkaline Phosphatase (46-116) U/L C-Reactive Protein 1.6 H* (<1.0) mg/dL Total Protein (6.4-8.2) g/dl Albumin (3.4-5.0) g/dl Globulin gm/dL Albumin/Globulin Ratio (1-2) C.difficile [id number] Presumptive negative C. difficile Tox (PCR) Negative 04/26/18 Range/Units 05:55 Sodium 132 L (136-145) mEq/L Potassium 3.8 (3.5-5.1) mEq/L Chloride 99 (98-107) mEq/L Carbon Dioxide 21 (21-32) mEq/L Anion Gap 15.8 H (5-15) BUN 21 H (7-18) mg/dL Creatinine 1.8 H (0.55-1.02) mg/dL Est Cr Clr Drug Dosing 40.22 mL/min Estimated GFR (MDRD) 29 (>60) mL/min BUN/Creatinine Ratio 11.7 L (14-18) Glucose 107 H (74-106) mg/dL Lactic Acid (0.4-2.0) mmol/L Calcium 8.7 (8.5-10.1) mg/dL Magnesium (1.8-2.4) mg/dl Total Bilirubin 1.5 H (0.2-1.0) mg/dL AST 53 H (15-37) U/L ALT 29 (14-59) U/L Alkaline Phosphatase 146 H (46-116) U/L C-Reactive Protein (<1.0) mg/dL Total Protein 6.1 L (6.4-8.2) g/dl Albumin 2.2 L (3.4-5.0) g/dl Globulin 3.9 gm/dL Albumin/Globulin Ratio 0.6 L (1-2) C.difficile [id number] C. difficile Tox (PCR) Humberto Results Last 24 Hours: Microbiology 04/20/18 18:45 Aerobic Blood Culture - Preliminary Blood - Venous - Lab Draw NO GROWTH AFTER 5 DAYS Anaerobic Blood Culture - Preliminary Gram Positive Rods 04/20/18 20:55 Gram Stain - Final Abdominal Fluid - Aspirate Body Fluid Culture - Preliminary NO GROWTH AFTER 6 DAYS 04/23/18 06:05 Aerobic Blood Culture - Preliminary Blood - Venous - Lab Draw NO GROWTH AFTER 3 DAYS Anaerobic Blood Culture - Preliminary NO GROWTH AFTER 3 DAYS 04/23/18 05:58 Aerobic Blood Culture - Preliminary Blood - Venous NO GROWTH AFTER 3 DAYS Anaerobic Blood Culture - Preliminary NO GROWTH AFTER 3 DAYS 04/20/18 18:39 Aerobic Blood Culture - Preliminary Blood - Venous NO GROWTH AFTER 5 DAYS Anaerobic Blood Culture - Final Streptococcus Species Staphylococcus Epidermidis Med Orders - Current: Current Medications Benzocaine/Menthol (Cepacol Sore Throat) 1 lozenge MUCMEM Q2H PRN PRN Reason: Throat Irritation Last Admin: 04/25/18 22:40 Dose: 1 lozenge Famotidine (Pepcid) 20 mg PO BEDTIME [facility] Last Admin: 04/25/18 20:52 Dose: 20 mg Folic Acid (Folic Acid) 1 mg PO BEDTIME [facility] Last Admin: 04/25/18 20:52 Dose: 1 mg Gabapentin (Neurontin) 200 mg PO TID [facility] Last Admin: 04/26/18 08:23 Dose: 200 mg Heparin Sodium (Porcine) (Heparin Sodium) 5,000 units SUBCUT TID@0700,1400, 2100 [facility] Last Admin: 04/26/18 06:50 Dose: 5,000 units Hydrochlorothiazide (Hydrochlorothiazide) 12.5 mg PO BIDDIURETIC [facility] Last Admin: 04/26/18 06:50 Dose: 12.5 mg Hydromorphone HCl (Dilaudid) 0.5 mg IVPUSH Q4H PRN PRN Reason: Pain Last Admin: 04/25/18 15:19 Dose: 0.5 mg Furosemide 100 mg/ Sodium (Chloride) 100 mls @ 4 mls/hr IV TITRATE TAL; Protocol Lisinopril (Prinivil) 20 mg PO DAILY [facility] Magnesium Oxide (Magnesium Oxide) 800 mg PO Q4H TAL Stop: 04/26/18 14:46 Magnesium Sulfate (Pharmacy To Dose - Magnesium Replacement) 1 dose .XX ASDIRECTED PRN PRN Reason: RX TO WATCH MG LEVELS Metoclopramide HCl (Reglan) 10 mg IVPUSH Q6H PRN PRN Reason: Nausea/Vomiting Last Admin: 04/26/18 10:54 Dose: 10 mg Multivitamins (Thera) 1 each PO BEDTIME TAL Last Admin: 04/25/18 20:53 Dose: 1 each Ondansetron HCl (Zofran) 4 mg IVPUSH Q8H PRN PRN Reason: Nausea Last Admin: 04/25/18 13:24 Dose: 4 mg Oxycodone HCl (Oxycodone) 5 mg PO Q4HR PRN PRN Reason: Pain Last Admin: 04/23/18 23:36 Dose: 5 mg Potassium Chloride (Pharmacy To Dose - Potassium Replacement) 1 dose .XX ASDIRECTED PRN PRN Reason: RX TO WATCH K+ LEVELS Rifaximin (Xifaxan) 550 mg PO BID [facility] Last Admin: 04/26/18 08:21 Dose: 550 mg Saccharomyces Boulardii (Florastor) 500 mg PO DAILY [facility] Last Admin: 04/26/18 08:21 Dose: 500 mg Spironolactone (Aldactone) 200 mg PO BID [facility] Thiamine HCl (Vitamin B-1) 100 mg PO BEDTIME [facility] Last Admin: 04/25/18 20:54 Dose: 100 mg Discontinued Medications Baclofen (Lioresal) 10 mg PO BID [facility] Last Admin: 04/23/18 08:49 Dose: 10 mg Famotidine (Pepcid) 20 mg PO BID [facility] Last Admin: 04/22/18 20:17 Dose: 20 mg Fentanyl (Sublimaze) 100 mcg IVPUSH ONETIME ONE Stop: 04/20/18 19:28 Last Admin: 04/20/18 21:12 Dose: Not Given Furosemide (Lasix) 20 mg IVPUSH DAILY [facility] Last Admin: 04/21/18 10:43 Dose: 20 mg Furosemide (Lasix) 20 mg IVPUSH BID [facility] Stop: 04/23/18 09:01 Last Admin: 04/23/18 08:49 Dose: 20 mg Furosemide (Lasix) 40 mg PO DAILY [facility] Last Admin: 04/22/18 08:41 Dose: Not Given Furosemide (Lasix) 40 mg PO DAILY [facility] Last Admin: 04/25/18 08:29 Dose: 40 mg Furosemide (Lasix) 20 mg IVPUSH BID [facility] Furosemide (Lasix) 40 mg PO DAILY [facility] Furosemide (Lasix) 10 mg IVPUSH BID [facility] Stop: 04/27/18 21:01 Last Admin: 04/26/18 08:26 Dose: 10 mg Gabapentin (Neurontin) 600 mg PO TID [facility] Last Admin: 04/23/18 08:48 Dose: 600 mg Hydrochlorothiazide (Hydrochlorothiazide) 12.5 mg PO ONETIME ONE Stop: 04/25/18 09:13 Last Admin: 04/25/18 09:45 Dose: 12.5 mg Hydromorphone HCl (Dilaudid) 1 mg IVPUSH ONETIME ONE Stop: 04/20/18 18:15 Last Admin: 04/20/18 18:26 Dose: 1 mg Hydromorphone HCl (Dilaudid) 0.5 mg IVPUSH Q4H PRN PRN Reason: Pain Dextrose/Sodium Chloride (Dextrose 5%-Normal Saline) 1,000 mls @ 250 mls/hr IV ASDIRECTED [facility] Last Admin: 04/20/18 18:25 Dose: 250 mls/hr Levofloxacin/Dextrose 750 mg/ (Premix) 150 mls @ 100 mls/hr IV ONETIME ONE Stop: 04/20/18 22:22 Last Admin: 04/20/18 21:09 Dose: 100 mls/hr Potassium Chloride 10 meq/ (Premix) 100 mls @ 100 mls/hr IV ONETIME ONE Stop: 04/20/18 22:37 Last Admin: 04/21/18 01:40 Dose: 100 mls/hr Levofloxacin/Dextrose 750 mg/ (Premix) 150 mls @ 100 mls/hr IV Q24H TAL Potassium Chloride 10 meq/ (Premix) 100 mls @ 100 mls/hr IV ONETIME ONE Stop: 04/21/18 02:29 Last Admin: 04/21/18 01:47 Dose: Not Given Metronidazole 500 mg/ Premix 100 mls @ 100 mls/hr IV Q8H [facility] Last Admin: 04/21/18 16:06 Dose: Not Given Cefotaxime Sodium 2 gm/ Sodium (Chloride) 50 mls @ 100 mls/hr IV Q8H [facility] Metronidazole 500 mg/ Premix 100 mls @ 100 mls/hr IV Q8H [facility] Stop: 04/25/18 12:00 Last Admin: 04/25/18 11:41 Dose: 100 mls/hr Ceftriaxone Sodium 2 gm/ (Sodium Chloride) 100 mls @ 200 mls/hr IV Q24H [facility] Last Admin: 04/24/18 12:20 Dose: Not Given Ceftriaxone Sodium 2 gm/ (Sodium Chloride) 100 mls @ 200 mls/hr IV ONETIME ONE Stop: 04/21/18 17:59 Last Admin: 04/21/18 17:37 Dose: 200 mls/hr Ceftriaxone Sodium 2 gm/ (Sodium Chloride) 100 mls @ 100 mls/hr IV Q24H [facility] Stop: 04/25/18 12:00 Last Admin: 04/25/18 11:43 Dose: 100 mls/hr Metronidazole (Flagyl 500 Mg In Ns 100 Ml) Confirm Administered Dose 100 mls @ as directed .ROUTE .STK-MED ONE Stop: 04/24/18 11:28 Last Admin: 04/24/18 11:31 Dose: Not Given Lidocaine HCl (Xylocaine 1%) Confirm Administered Dose 50 ml .ROUTE .STK-MED ONE Stop: 04/21/18 15:37 Last Admin: 04/21/18 16:08 Dose: 50 ml Lidocaine/Epinephrine (Xylocaine 1% With Epinephrine 1:100,000) 20 ml INJECT ONETIME ONE Stop: 04/20/18 19:28 Last Admin: 04/20/18 20:26 Dose: 20 ml Lidocaine/Epinephrine (Xylocaine 1% With Epinephrine 1:100,000) Confirm Administered Dose 20 ml .ROUTE .STK-MED ONE Stop: 04/20/18 20:35 Last Admin: 04/20/18 21:13 Dose: Not Given Lidocaine/Epinephrine (Xylocaine 1% With Epinephrine 1:100,000) 20 ml INJECT ONETIME ONE Stop: 04/20/18 21:14 Last Admin: 04/20/18 20:45 Dose: 20 ml Lisinopril (Prinivil) 10 mg PO ONETIME ONE Stop: 04/25/18 09:16 Last Admin: 04/25/18 10:16 Dose: Not Given Lisinopril (Prinivil) 10 mg PO DAILY [facility] Last Admin: 04/26/18 08:21 Dose: 10 mg Lorazepam (Ativan) Confirm Administered Dose 2 mg .ROUTE .STK-MED ONE Stop: 04/21/18 15:30 Last Admin: 04/21/18 16:07 Dose: Not Given Lorazepam (Ativan) 0.5 mg IVPUSH ONETIME ONE Stop: 04/21/18 15:32 Last Admin: 04/21/18 16:04 Dose: 0.5 mg Magnesium Hydroxide (Milk Of Magnesia) 30 ml PO ONETIME ONE Stop: 04/21/18 16:33 Last Admin: 04/21/18 17:35 Dose: 30 ml Magnesium Oxide (Magnesium Oxide) 400 mg PO ONETIME ONE Stop: 04/22/18 01:31 Last Admin: 04/22/18 03:33 Dose: 400 mg Metoclopramide HCl (Reglan) 10 mg IVPUSH ONETIME ONE Stop: 04/20/18 18:15 Last Admin: 04/20/18 18:25 Dose: 10 mg Midazolam HCl (Versed 1 Mg/Ml) 5 mg IVPUSH ONETIME ONE Stop: 04/20/18 19:28 Last Admin: 04/20/18 21:10 Dose: Not Given Midazolam HCl (Versed 1 Mg/Ml) Confirm Administered Dose 6 mg .ROUTE .STK-MED ONE Stop: 04/20/18 19:37 Last Admin: 04/20/18 21:13 Dose: Not Given Midazolam HCl (Versed 1 Mg/Ml) 4 mg IVPUSH ONETIME ONE Stop: 04/20/18 21:00 Last Admin: 04/20/18 20:30 Dose: 2 mg Potassium Chloride (Klor-Con M20) 40 meq PO BID [facility] Stop: 04/22/18 21:01 Last Admin: 04/21/18 17:09 Dose: Not Given Potassium Chloride (Klor-Con M20) 40 meq PO BID [facility] Stop: 04/22/18 21:01 Last Admin: 04/22/18 20:18 Dose: 40 meq Spironolactone (Aldactone) 25 mg PO BID [facility] Last Admin: 04/21/18 10:41 Dose: 25 mg Spironolactone (Aldactone) 50 mg PO BID [facility] Last Admin: 04/25/18 08:29 Dose: 50 mg Spironolactone (Aldactone) 100 mg PO BID [facility] Last Admin: 04/26/18 08:23 Dose: 100 mg Spironolactone (Aldactone) 100 mg PO ONETIME ONE Stop: 04/26/18 11:01 Temazepam (Restoril) 7.5 mg PO BEDTIME PRN PRN Reason: Insomnia - Exam General: Alert, Oriented, Cooperative HEENT: Pupils Equal, Pupils Reactive, EOMI, Mucous Membr. Moist/[place]. No: Scleral Icterus Neck: Supple Lungs: Normal Respiratory Effort, Decreased Breath Sounds, Crackles (at the bases) Cardiovascular: Regular Rate, Regular Rhythm, Murmurs GI/Abdominal Exam: Normal Bowel Sounds, Soft, No Organomegaly, No Distention, No Abnormal Bruit, Distended, Tender, Hepatomegaly, Splenomegaly. No: Rigid, Rebound (Female) Exam: Deferred Back Exam: Normal Inspection, Decreased Range of Motion Extremities: Normal Inspection, Normal Range of Motion, Non-Tender, No Pedal Edema, Normal Capillary Refill Peripheral Pulses: 2+: Dorsalis Pedis (L), Dorsalis Pedis (R) Skin: Warm, Dry, Intact Neurological: No New Focal Deficit Psy/Mental Status: Alert, Normal Affect, Normal Mood - Problem List Review Problem List Initiated/Reviewed/Updated: Yes - My Orders Last 24 Hours: My Active Orders 04/25/18 18:00 hydroCHLOROthiazide 12.5 mg PO BIDDIURETIC 04/26/18 05:11 PRO B-TYPE NATRIUR PEPT,BNPPRO [CHEM] Routine 04/26/18 07:00 Abdominal Girth Measurement [OM.PC] BID 04/26/18 10:45 Magnesium Oxide 800 mg PO Q4H 04/26/18 11:00 Furosemide [Lasix] 100 mg Sodium Chloride 0.9% [Normal Saline] 90 ml IV TITRATE 04/26/18 21:00 Spironolactone [Aldactone] 200 mg PO BID 04/27/18 05:11 CMP [COMPREHENSIVE METABOLIC PN,CMP] [CHEM] AM INR,PT,PROTHROMBIN TIME [COAG] AM MG [MAGNESIUM] [CHEM] AM PRO B-TYPE NATRIUR PEPT,BNPPRO [CHEM] DAILY 04/27/18 07:00 CBC W/O DIFF,HEMOGRAM [HEME] MOTH@0700 04/27/18 09:00 Lisinopril [Prinivil] 20 mg PO DAILY 04/28/18 05:11 CMP [COMPREHENSIVE METABOLIC PN,CMP] [CHEM] AM MG [MAGNESIUM] [CHEM] AM PRO B-TYPE NATRIUR PEPT,BNPPRO [CHEM] DAILY 04/29/18 05:11 PRO B-TYPE NATRIUR PEPT,BNPPRO [CHEM] DAILY 04/30/18 07:00 CBC W/O DIFF,HEMOGRAM [HEME] MOTH@0700 05/04/18 07:00 CBC W/O DIFF,HEMOGRAM [HEME] MOTH@0700 05/07/18 07:00 CBC W/O DIFF,HEMOGRAM [HEME] MOTH@0700 05/11/18 07:00 CBC W/O DIFF,HEMOGRAM [HEME] MOTH@0700 - Plan Plan:: Impression/Plan: Acute: Decompensated Liver Failure S/p Paracentesis - 2/2 Liver Cirrhosis (Stage 4 Fibrosis) with active moderate steatohepatitis , ductular proliferation and fatty change (10-15% macrovesicular type) - Seen and evaluated by Dr. Bliss in [place] and underwent liver biopsy pending result - Recently has paracentesis and in 2 weeks she re-accumulated - Had paracentesis in ED on admission with 6L abdominal ascites removed - She is currently on IV Flagyl and Rocephin prophylaxis for post procedural bacterial peritonitis - Ascites fluid shows WBC is 0.16; rest of her labs are wnl - INR now is 1.47 from 1.56 yesterday; INR now is 1.41 - Initial MELD Score is 18 with 6% Estimated 3-month Mortality - Offered repeat abdominal CT scan and chest x-ray; patient agreed--> result of both images show no changes and fairly stable from previous images 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 - Weight gain of 101 kg (baseline weigh of 96 kg on admission) - Starting to see signs of hepato-renal syndrome with increasing weight gain - Lisinopril 10 mg po daily--> change to 20 mg po daily - Lasix drip at 4 ml/hr - Measure Abdominal Girth BID - ProBNP - Change Aldacton to 200 mg po BID - Continue fluid restriction of 1800 ml Malnutrition - Total Protein 7.2 --> 6.3 - Dietary consult for protein wasting Resolved: S/p E-lytes Abnormality - Hypokalemia and Hypomagnesemia - K 3.2--> 4.2 and Mg 1.6--> 1.9 - Increased Aldactone dose - Pharmacy to replete and monitor Large Left Sided Pleural Effusion - Cannot r/o Hepato-Pulmonary Syndrome - S/p Thoracentesis w/ estimated 855 ml of straw colored pleural fluids - IS as tolerated S/p Hepatic Encephalopathy - Has underlying Liver Cirrhosis (likely ESLD) - Confused and now sharp mentally last night and this AM - She is only on Percocet for pain control S/p Possible Bacteremia vs Contamination - S/p Paracentesis in ED on admission - 02/12 bottles shows Streptoccocus Species and Probable Staph Species - Currently on IV Flagyl and Rocephin - Repeat blood culture so far after 24 hrs is negative Chronic: PTSD Depression Spinal stenosis, cervical Back Pain Scoliosis Portal HTN Class I Obese Polypharmacy 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 Bliss, query transplant work Need EMR from [place] provider Encourage to ambulate as tolerated LOS > 96 hrs for further diuresis due weight gain and refractory ascites by hyperaldosteronism Discharge in AM pending results of repeat labs Met up with her son today and informed him he needs to make plans to fly her to [place] right after discharge to get her to the nearest transplant center. Otherwise she will not do well here and possibly w/o liver intervention. Our goal at this point is to diurese as much as we can while he and patient's siblings in [place] or [place] make plans for her to get situated. I re-iterated with urgency the need for her to get there the soonest.
[2018-04-26] MEDS: Magnesium Oxide 400 MG Tab PO SCH ×2 (12:04→14:09)
[2018-04-26] MEDS ORDERED: Loperamide 2 MG Cap PO ONE ×2 (19:26→21:45)
[2018-04-26] MEDS: Folic Acid 1 MG Tab PO SCH (22:07)
[2018-04-26] MEDS: Multivitamins,Therapeutic Tab PO SCH (22:07)
[2018-04-26] MEDS: Famotidine 20 MG Tab PO SCH (22:08)
[2018-04-26] MEDS: oxyCODONE 5 MG Tab PO PRN (22:09)
[2018-04-26] MEDS: Thiamine 100 MG Tab PO SCH (22:09)
[2018-04-27] MEDS: Hydrochlorothiazide 12.5 MG Cap PO SCH ×2 (05:43→14:37)
[2018-04-27] MEDS: Heparin Sodium 5,000 Units/ML Vial SUBCUT SCH ×3 (05:43→14:37)
[2018-04-27] MEDS ORDERED: Lisinopril 20 MG Tab PO SCH (09:00)
[2018-04-27] MEDS ORDERED: Magnesium Oxide 400 MG Tab PO ONE (09:15)
[2018-04-27] MEDS: Gabapentin 100 MG Cap PO SCH ×2 (09:16→14:36)
[2018-04-27] MEDS: Saccharomyces Boulardii (Probiotic) 250 MG Cap PO SCH (09:16)
[2018-04-27] MEDS: Spironolactone 100 MG Tab PO SCH (09:17)
[2018-04-27] MEDS: Rifaximin 550 MG Tab PO SCH (09:17)
--- NOTE | 2018-04-27 13:40 | PCM.DCSUM1 ---
Discharge Summary - Hospital Course HPI Initial Comments: 52 year old female with reportedly autoimmune related liver disease, has required paracentesis recently including prior to admission. Last night she had 6 liters of aria fluid removed which relieved her abdominal pain.. The patient is presumptively being treated for SBP. In the ED, she received Levoquin 750 mg IV. The patient has been sen at least once by Dr Griffin in [place] in the GI clinic. She is a recent transplant from [place], her provider prior to relocation will need to be clarified. She had a CT of the abdomen/pelvis ordered by Dr Reese whom she saw on the day of her ED visit after the results were available. The patient will be admitted to [facility], and is a full code. The possibilty of her being listed for a liver transplant was discussed with the patient by the ED provider. Diagnosis: Stroke: No Modified Renata Scale: No Symptoms at All Modified Magoffin Scale Score: 0 - Discharge Data Discharge Date: 04/27/18 Discharge Disposition: Home, Self-Care 01 Condition: Good - Discharge Diagnosis/Problem(s) (1) Cirrhosis of liver with ascites SNOMED Code(s): 67844966 ICD Code: K74.60 - UNSPECIFIED CIRRHOSIS OF LIVER; R18.8 - OTHER ASCITES Status: Chronic Current Visit: No Qualifiers: Hepatic cirrhosis type: unspecified hepatic cirrhosis Qualified Code(s): K74.60 - Unspecified cirrhosis of liver; R18.8 - Other ascites (2) Pleural effusion associated with hepatic disorder SNOMED Code(s): 17523890 ICD Code: K76.9 - LIVER DISEASE, UNSPECIFIED; J91.8 - PLEURAL EFFUSION IN OTHER CONDITIONS CLASSIFIED ELSEWHERE Status: Chronic Current Visit: Yes (3) Hepatic encephalopathy SNOMED Code(s): 81999615 ICD Code: K72.90 - HEPATIC FAILURE, UNSPECIFIED WITHOUT COMA Status: Resolved Current Visit: Yes (4) Malnutrition SNOMED Code(s): 03000593 ICD Code: E46 - UNSPECIFIED PROTEIN-CALORIE MALNUTRITION Status: Chronic Current Visit: Yes Qualifiers: Malnutrition type: protein-calorie malnutrition (5) Hypokalemia due to loss of potassium SNOMED Code(s): 51311833 ICD Code: E87.6 - HYPOKALEMIA Status: Resolved Current Visit: Yes (6) Hypomagnesemia SNOMED Code(s): 776116334 ICD Code: E83.42 - HYPOMAGNESEMIA Status: Acute Current Visit: Yes (7) Scoliosis (and kyphoscoliosis), idiopathic SNOMED Code(s): 75919493 ICD Code: M41.20 - OTHER IDIOPATHIC SCOLIOSIS, SITE UNSPECIFIED Status: Chronic Current Visit: Yes (8) Chronic pain disorder SNOMED Code(s): 752834819 ICD Code: G89.4 - CHRONIC PAIN SYNDROME Status: Chronic Current Visit: Yes (9) 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 (nonalcoholic steatohepatitis) SNOMED Code(s): 77397629 ICD Code: K75.81 - NONALCOHOLIC STEATOHEPATITIS (HELMS); K74.60 - UNSPECIFIED CIRRHOSIS OF LIVER Status: Chronic Current Visit: Yes (10) Adukfoc-yqhkkw-bhbbc syndrome SNOMED Code(s): 17924485 ICD Code: Q87.89 - OTH CONGENITAL MALFORMATION SYNDROMES, NEC Status: Acute Current Visit: Yes - Patient Summary/Data Operative Procedure(s) Performed: Paracentesis and Thoracentesis Complications: None Consults: Consultations 04/21/18 09:41 Consult to Physical Therapy [PT Evaluation and Treatment] [CONS] Routine 04/21/18 09:42 Consult to Case Management/Architecture Internship [CONS] Routine Consult to Occupational Therapy [OT Evaluation and Treatment] [CONS] Routine 04/21/18 11:40 Consult to Dietary [Consult to Corporate Counsel] [CONS] Routine Labs Pending at D/C: None Recommended Follow-up Testing/Procedures: None Planned Operative Procedure(s) after DC: None - Patient Instructions Diet: Heart Healthy Diet, Low Sodium, No Alcoholic Beverages, Fluid Restriction Fluid Restriction: 1500 mL Activity: As Tolerated Driving: Do Not Drive Showering/Bathing: May Shower Notify Provider of: Fever, Increased Pain, Swelling and Redness, Nausea and/or Vomiting Other/Special Instructions: - Take all new medications as directed. - Resume all home medications and routine home activities as tolerated. - Recommend you get to the nearest transplant center in [place] or [place] as soon as possible. - Call or follow up with your PCP for any questions or concerns after discharge. - Follow up with your PCP in 1 week with repeat labs. - Come back or seek immediate care should your symptoms persist or get worse - Discharge Plan *PRESCRIPTION DRUG MONITORING PROGRAM REVIEWED*: Not Applicable *COPY OF PRESCRIPTION DRUG MONITORING REPORT IN PATIENT ADELITA: Not Applicable Prescriptions/Med Rec: Furosemide [Lasix] 80 mg PO DAILY #30 tab Gabapentin [Neurontin] 200 mg PO TID #60 capsule Lisinopril 10 mg PO DAILY #30 tablet LORazepam [Ativan] 1 mg PO Q6H PRN #3 tablet PRN Reason: Anxiety Ondansetron [Zofran] 4 mg BUCCAL Q6H PRN #15 tab PRN Reason: nausea or vomiting Scopolamine [Transderm-Scop] 1 each TD Q72H #1 patch Spironolactone [Aldactone] 200 mg PO BID #90 tablet Home Medications: Home Meds oxyCODONE 5 mg PO Q4HR PRN 01/04/18 [History] Rifaximin [Xifaxan] 1 tab PO BID 02/21/18 [History] amLODIPine Besylate [Amlodipine Besylate] 10 mg PO DAILY 02/21/18 [History] Furosemide [Lasix] 80 mg PO DAILY #30 tab 04/27/18 [Rx] Gabapentin [Neurontin] 200 mg PO TID #60 capsule 04/27/18 [Rx] LORazepam [Ativan] 1 mg PO Q6H PRN #3 tablet 04/27/18 [Rx] Lisinopril 10 mg PO DAILY #30 tablet 04/27/18 [Rx] Ondansetron [Zofran] 4 mg BUCCAL Q6H PRN #15 tab 04/27/18 [Rx] Scopolamine [Transderm-Scop] 1 each TD Q72H #1 patch 04/27/18 [Rx] Spironolactone [Aldactone] 200 mg PO BID #90 tablet 04/27/18 [Rx] Patient Handouts: Steps to Quit Smoking, [id number], Thoracentesis, Paracentesis, Care After, Liver Failure, Cirrhosis, Paracentesis Referrals: Nova Rodriguez NP [Primary Care Provider] - Dipak Bliss MD [Ordering Only Provider] - 06/03/18 11:20 am (This appt. is in [facility] time. You are also on a waiting list for an earlier appt.) - Discharge Summary/Plan Comment DC Time >30 min.: Yes (45 mins) Discharge Summary/Plan Comment: Discharge to Home - General Info Date of Service: 04/27/18 Admission Dx/Problem (Free Text: Admission Diagnosis/Problem Admission Diagnosis/Problem Cirrhosis of liver with ascites Subjective Update: Follow Up Functional Status: Reports: Pain Controlled, Tolerating Diet, Ambulating, Urinating. Denies: New Symptoms - Review of Systems General: Denies: Fever, Weakness, Fatigue, Malaise, Chills HEENT: Reports: No Symptoms Pulmonary: Denies: Shortness of Breath Cardiovascular: Denies: Chest Pain, Dyspnea on Exertion, Lightheadedness Gastrointestinal: Reports: Diarrhea. Denies: Abdominal Pain, Nausea, Vomiting Genitourinary: Reports: Frequency Musculoskeletal: Reports: Back Pain Skin: Denies: Cyanosis, Mottled, Pallor, Diaphoresis, Bruising, Rash Neurological: Denies: Confusion, Dizziness, Numbness, Weakness, Gait Disturbance Psychiatric: Denies: No Symptoms, Depression, Anxiety, Agitation, Hallucinations Systems Review Comment: No overnight or acute issues. She is doing relatively well. She is ready to go home. - Patient Data Vitals - Most Recent: Last Vital Signs Temp 37.4 C 04/27/18 07:28 Pulse 73 04/27/18 07:28 Resp 16 04/27/18 07:28 BP 107/74 04/27/18 09:18 Pulse Ox 99 04/27/18 07:28 Weight - Most Recent: 101.877 kg I&O - Last 24 hours: Intake & Output 04/26/18 04/27/18 04/27/18 22:59 06:59 14:59 Intake Total 757 352 300 Output Total 1000 1350 Balance -243 -998 300 Lab Results - Last 24 hrs: Laboratory Results - last 24 hr 04/27/18 04/27/18 04/27/18 Range/Units 05:50 05:50 05:50 WBC 6.60 (3.98-10.04) K/mm3 RBC 4.66 (3.98-5.22) M/mm3 Hgb 13.7 (11.2-15.7) gm/L Hct 39.5 (34.1-44.9) % MCV 84.8 (79.4-94.8) fl MCH 29.4 (25.6-32.2) pg MCHC 34.7 (32.2-35.5) g/dl RDW Std Deviation 53.9 H (36.4-46.3) fL Plt Count 164 L (182-369) K/mm3 MPV 9.4 (9.4-12.3) fl PT (9.5-12.1) SECONDS INR Sodium 132 L (136-145) mEq/L Potassium 3.7 (3.5-5.1) mEq/L Chloride 100 (98-107) mEq/L Carbon Dioxide 24 (21-32) mEq/L Anion Gap 11.7 (5-15) BUN 20 H (7-18) mg/dL Creatinine 1.8 H (0.55-1.02) mg/dL Est Cr Clr Drug Dosing 40.22 mL/min Estimated GFR (MDRD) 29 (>60) mL/min BUN/Creatinine Ratio 11.1 L (14-18) Glucose 112 H (74-106) mg/dL Calcium 8.6 (8.5-10.1) mg/dL Magnesium 1.7 L (1.8-2.4) mg/dl Total Bilirubin 1.7 H (0.2-1.0) mg/dL AST 55 H (15-37) U/L ALT 30 (14-59) U/L Alkaline Phosphatase 146 H (46-116) U/L NT-Pro-B Natriuret Pep 49 (0-125) pg/mL Total Protein 6.4 (6.4-8.2) g/dl Albumin 2.3 L (3.4-5.0) g/dl Globulin 4.1 gm/dL Albumin/Globulin Ratio 0.6 L (1-2) 04/27/18 Range/Units 05:50 WBC (3.98-10.04) K/mm3 RBC (3.98-5.22) M/mm3 Hgb (11.2-15.7) gm/L Hct (34.1-44.9) % MCV (79.4-94.8) fl MCH (25.6-32.2) pg MCHC (32.2-35.5) g/dl RDW Std Deviation (36.4-46.3) fL Plt Count (182-369) K/mm3 MPV (9.4-12.3) fl PT 16.7 H (9.5-12.1) SECONDS INR 1.55 Sodium (136-145) mEq/L Potassium (3.5-5.1) mEq/L Chloride (98-107) mEq/L Carbon Dioxide (21-32) mEq/L Anion Gap (5-15) BUN (7-18) mg/dL Creatinine (0.55-1.02) mg/dL Est Cr Clr Drug Dosing mL/min Estimated GFR (MDRD) (>60) mL/min BUN/Creatinine Ratio (14-18) Glucose (74-106) mg/dL Calcium (8.5-10.1) mg/dL Magnesium (1.8-2.4) mg/dl Total Bilirubin (0.2-1.0) mg/dL AST (15-37) U/L ALT (14-59) U/L Alkaline Phosphatase (46-116) U/L NT-Pro-B Natriuret Pep (0-125) pg/mL Total Protein (6.4-8.2) g/dl Albumin (3.4-5.0) g/dl Globulin gm/dL Albumin/Globulin Ratio (1-2) GLO Results - Last 24 hrs: Microbiology 04/20/18 20:55 Gram Stain - Final Abdominal Fluid - Aspirate Body Fluid Culture - Final NO GROWTH AFTER 7 DAYS 04/23/18 05:58 Aerobic Blood Culture - Preliminary Blood - Venous NO GROWTH AFTER 4 DAYS Anaerobic Blood Culture - Preliminary NO GROWTH AFTER 4 DAYS 04/23/18 06:05 Aerobic Blood Culture - Preliminary Blood - Venous - Lab Draw NO GROWTH AFTER 4 DAYS Anaerobic Blood Culture - Preliminary NO GROWTH AFTER 4 DAYS 04/20/18 18:39 Aerobic Blood Culture - Preliminary Blood - Venous NO GROWTH AFTER 6 DAYS Anaerobic Blood Culture - Final Streptococcus Species Staphylococcus Epidermidis 04/20/18 18:45 Aerobic Blood Culture - Preliminary Blood - Venous - Lab Draw NO GROWTH AFTER 6 DAYS Anaerobic Blood Culture - Preliminary Gram Positive Rods Med Orders - Current: Current Medications Benzocaine/Menthol (Cepacol Sore Throat) 1 lozenge MUCMEM Q2H PRN PRN Reason: Throat Irritation Last Admin: 04/25/18 22:40 Dose: 1 lozenge Famotidine (Pepcid) 20 mg PO BEDTIME TAL Last Admin: 04/26/18 22:08 Dose: 20 mg Folic Acid (Folic Acid) 1 mg PO BEDTIME TAL Last Admin: 04/26/18 22:07 Dose: 1 mg Gabapentin (Neurontin) 200 mg PO TID [facility] Last Admin: 04/27/18 09:16 Dose: 200 mg Heparin Sodium (Porcine) (Heparin Sodium) 5,000 units SUBCUT TID@0700,1400, 2100 [facility] Last Admin: 04/27/18 06:25 Dose: Not Given Hydrochlorothiazide (Hydrochlorothiazide) 12.5 mg PO BIDDIURETIC [facility] Last Admin: 04/27/18 05:43 Dose: 12.5 mg Hydromorphone HCl (Dilaudid) 0.5 mg IVPUSH Q4H PRN PRN Reason: Pain Last Admin: 04/25/18 15:19 Dose: 0.5 mg Furosemide 100 mg/ Sodium (Chloride) 100 mls @ 4 mls/hr IV TITRATE [facility]; Protocol Last Admin: 04/26/18 12:04 Dose: 4 mls/hr Lisinopril (Prinivil) 20 mg PO DAILY [facility] Last Admin: 04/27/18 09:18 Dose: 20 mg Magnesium Sulfate (Pharmacy To Dose - Magnesium Replacement) 1 dose .XX ASDIRECTED PRN PRN Reason: RX TO WATCH MG LEVELS Metoclopramide HCl (Reglan) 10 mg IVPUSH Q6H PRN PRN Reason: Nausea/Vomiting Last Admin: 04/26/18 10:54 Dose: 10 mg Multivitamins (Thera) 1 each PO BEDTIME [facility] Last Admin: 04/26/18 22:07 Dose: 1 each Ondansetron HCl (Zofran) 4 mg IVPUSH Q8H PRN PRN Reason: Nausea Last Admin: 04/25/18 13:24 Dose: 4 mg Oxycodone HCl (Oxycodone) 5 mg PO Q4HR PRN PRN Reason: Pain Last Admin: 04/26/18 22:09 Dose: 5 mg Potassium Chloride (Pharmacy To Dose - Potassium Replacement) 1 dose .XX ASDIRECTED PRN PRN Reason: RX TO WATCH K+ LEVELS Rifaximin (Xifaxan) 550 mg PO BID [facility] Last Admin: 04/27/18 09:17 Dose: 550 mg Saccharomyces Boulardii (Florastor) 500 mg PO DAILY [facility] Last Admin: 04/27/18 09:16 Dose: 500 mg Spironolactone (Aldactone) 200 mg PO BID [facility] Last Admin: 04/27/18 09:17 Dose: 200 mg Thiamine HCl (Vitamin B-1) 100 mg PO BEDTIME [facility] Last Admin: 04/26/18 22:09 Dose: 100 mg Discontinued Medications Baclofen (Lioresal) 10 mg PO BID [facility] Last Admin: 04/23/18 08:49 Dose: 10 mg Famotidine (Pepcid) 20 mg PO BID [facility] Last Admin: 04/22/18 20:17 Dose: 20 mg Fentanyl (Sublimaze) 100 mcg IVPUSH ONETIME ONE Stop: 04/20/18 19:28 Last Admin: 04/20/18 21:12 Dose: Not Given Furosemide (Lasix) 20 mg IVPUSH DAILY [facility] Last Admin: 04/21/18 10:43 Dose: 20 mg Furosemide (Lasix) 20 mg IVPUSH BID [facility] Stop: 04/23/18 09:01 Last Admin: 04/23/18 08:49 Dose: 20 mg Furosemide (Lasix) 40 mg PO DAILY [facility] Last Admin: 04/22/18 08:41 Dose: Not Given Furosemide (Lasix) 40 mg PO DAILY [facility] Last Admin: 04/25/18 08:29 Dose: 40 mg Furosemide (Lasix) 20 mg IVPUSH BID [facility] Furosemide (Lasix) 40 mg PO DAILY [facility] Furosemide (Lasix) 10 mg IVPUSH BID [facility] Stop: 04/27/18 21:01 Last Admin: 04/26/18 08:26 Dose: 10 mg Gabapentin (Neurontin) 600 mg PO TID [facility] Last Admin: 04/23/18 08:48 Dose: 600 mg Hydrochlorothiazide (Hydrochlorothiazide) 12.5 mg PO ONETIME ONE Stop: 04/25/18 09:13 Last Admin: 04/25/18 09:45 Dose: 12.5 mg Hydromorphone HCl (Dilaudid) 1 mg IVPUSH ONETIME ONE Stop: 04/20/18 18:15 Last Admin: 04/20/18 18:26 Dose: 1 mg Hydromorphone HCl (Dilaudid) 0.5 mg IVPUSH Q4H PRN PRN Reason: Pain Dextrose/Sodium Chloride (Dextrose 5%-Normal Saline) 1,000 mls @ 250 mls/hr IV ASDIRECTED [facility] Last Admin: 04/20/18 18:25 Dose: 250 mls/hr Levofloxacin/Dextrose 750 mg/ (Premix) 150 mls @ 100 mls/hr IV ONETIME ONE Stop: 04/20/18 22:22 Last Admin: 04/20/18 21:09 Dose: 100 mls/hr Potassium Chloride 10 meq/ (Premix) 100 mls @ 100 mls/hr IV ONETIME ONE Stop: 04/20/18 22:37 Last Admin: 04/21/18 01:40 Dose: 100 mls/hr Levofloxacin/Dextrose 750 mg/ (Premix) 150 mls @ 100 mls/hr IV Q24H [facility] Potassium Chloride 10 meq/ (Premix) 100 mls @ 100 mls/hr IV ONETIME ONE Stop: 04/21/18 02:29 Last Admin: 04/21/18 01:47 Dose: Not Given Metronidazole 500 mg/ Premix 100 mls @ 100 mls/hr IV Q8H [facility] Last Admin: 04/21/18 16:06 Dose: Not Given Cefotaxime Sodium 2 gm/ Sodium (Chloride) 50 mls @ 100 mls/hr IV Q8H [facility] Metronidazole 500 mg/ Premix 100 mls @ 100 mls/hr IV Q8H [facility] Stop: 04/25/18 12:00 Last Admin: 04/25/18 11:41 Dose: 100 mls/hr Ceftriaxone Sodium 2 gm/ (Sodium Chloride) 100 mls @ 200 mls/hr IV Q24H [facility] Last Admin: 04/24/18 12:20 Dose: Not Given Ceftriaxone Sodium 2 gm/ (Sodium Chloride) 100 mls @ 200 mls/hr IV ONETIME ONE Stop: 04/21/18 17:59 Last Admin: 04/21/18 17:37 Dose: 200 mls/hr Ceftriaxone Sodium 2 gm/ (Sodium Chloride) 100 mls @ 100 mls/hr IV Q24H [facility] Stop: 04/25/18 12:00 Last Admin: 04/25/18 11:43 Dose: 100 mls/hr Metronidazole (Flagyl 500 Mg In Ns 100 Ml) Confirm Administered Dose 100 mls @ as directed .ROUTE .STK-MED ONE Stop: 04/24/18 11:28 Last Admin: 04/24/18 11:31 Dose: Not Given Lidocaine HCl (Xylocaine 1%) Confirm Administered Dose 50 ml .ROUTE .STK-MED ONE Stop: 04/21/18 15:37 Last Admin: 04/21/18 16:08 Dose: 50 ml Lidocaine/Epinephrine (Xylocaine 1% With Epinephrine 1:100,000) 20 ml INJECT ONETIME ONE Stop: 04/20/18 19:28 Last Admin: 04/20/18 20:26 Dose: 20 ml Lidocaine/Epinephrine (Xylocaine 1% With Epinephrine 1:100,000) Confirm Administered Dose 20 ml .ROUTE .STK-MED ONE Stop: 04/20/18 20:35 Last Admin: 04/20/18 21:13 Dose: Not Given Lidocaine/Epinephrine (Xylocaine 1% With Epinephrine 1:100,000) 20 ml INJECT ONETIME ONE Stop: 04/20/18 21:14 Last Admin: 04/20/18 20:45 Dose: 20 ml Lisinopril (Prinivil) 10 mg PO ONETIME ONE Stop: 04/25/18 09:16 Last Admin: 04/25/18 10:16 Dose: Not Given Lisinopril (Prinivil) 10 mg PO DAILY [facility] Last Admin: 04/26/18 08:21 Dose: 10 mg Loperamide HCl (Imodium) 2 mg PO ONETIME ONE Stop: 04/26/18 19:27 Last Admin: 04/26/18 22:08 Dose: Not Given Loperamide HCl (Imodium) 2 mg PO ONETIME ONE Stop: 04/26/18 21:46 Last Admin: 04/26/18 22:07 Dose: 2 mg Lorazepam (Ativan) Confirm Administered Dose 2 mg .ROUTE .STK-MED ONE Stop: 04/21/18 15:30 Last Admin: 04/21/18 16:07 Dose: Not Given Lorazepam (Ativan) 0.5 mg IVPUSH ONETIME ONE Stop: 04/21/18 15:32 Last Admin: 04/21/18 16:04 Dose: 0.5 mg Magnesium Hydroxide (Milk Of Magnesia) 30 ml PO ONETIME ONE Stop: 04/21/18 16:33 Last Admin: 04/21/18 17:35 Dose: 30 ml Magnesium Oxide (Magnesium Oxide) 400 mg PO ONETIME ONE Stop: 04/22/18 01:31 Last Admin: 04/22/18 03:33 Dose: 400 mg Magnesium Oxide (Magnesium Oxide) 800 mg PO Q4H [facility] Stop: 04/26/18 14:46 Last Admin: 04/26/18 14:09 Dose: 800 mg Magnesium Oxide (Magnesium Oxide) 800 mg PO ONETIME ONE Stop: 04/27/18 09:16 Last Admin: 04/27/18 09:24 Dose: 800 mg Metoclopramide HCl (Reglan) 10 mg IVPUSH ONETIME ONE Stop: 04/20/18 18:15 Last Admin: 04/20/18 18:25 Dose: 10 mg Midazolam HCl (Versed 1 Mg/Ml) 5 mg IVPUSH ONETIME ONE Stop: 04/20/18 19:28 Last Admin: 04/20/18 21:10 Dose: Not Given Midazolam HCl (Versed 1 Mg/Ml) Confirm Administered Dose 6 mg .ROUTE .STK-MED ONE Stop: 04/20/18 19:37 Last Admin: 04/20/18 21:13 Dose: Not Given Midazolam HCl (Versed 1 Mg/Ml) 4 mg IVPUSH ONETIME ONE Stop: 04/20/18 21:00 Last Admin: 04/20/18 20:30 Dose: 2 mg Potassium Chloride (Klor-Con M20) 40 meq PO BID [facility] Stop: 04/22/18 21:01 Last Admin: 04/21/18 17:09 Dose: Not Given Potassium Chloride (Klor-Con M20) 40 meq PO BID [facility] Stop: 04/22/18 21:01 Last Admin: 04/22/18 20:18 Dose: 40 meq Spironolactone (Aldactone) 25 mg PO BID [facility] Last Admin: 04/21/18 10:41 Dose: 25 mg Spironolactone (Aldactone) 50 mg PO BID [facility] Last Admin: 04/25/18 08:29 Dose: 50 mg Spironolactone (Aldactone) 100 mg PO BID [facility] Last Admin: 04/26/18 08:23 Dose: 100 mg Spironolactone (Aldactone) 100 mg PO ONETIME ONE Stop: 04/26/18 11:01 Last Admin: 04/26/18 12:03 Dose: 100 mg Temazepam (Restoril) 7.5 mg PO BEDTIME PRN PRN Reason: Insomnia - Exam General: Reports: Alert, Oriented, Cooperative, No Acute Distress HEENT: Reports: Pupils Equal, Pupils Reactive, Mucous Membr. Moist/[place] Neck: Reports: Supple Lungs: Reports: Normal Respiratory Effort, Decreased Breath Sounds, Crackles ( at the base) Cardiovascular: Reports: Regular Rate, Regular Rhythm, Murmurs GI/Abdominal Exam: Normal Bowel Sounds, Soft, Non-Tender, No Organomegaly, No Abnormal Bruit, Distended, Hepatomegaly, Splenomegaly, Other Rectal (Female) Exam: Deferred Back Exam: Reports: Normal Inspection, Decreased Range of Motion Extremities: Normal Inspection, Normal Range of Motion, Non-Tender, No Pedal Edema, Normal Capillary Refill Skin: Reports: Warm, Dry, Intact, Ecchymosis Neurological: Reports: No New Focal Deficit Psy/Mental Status: Reports: Alert, Normal Affect, Normal Mood Discharge Operative/Procedures - Procedures Performed Paracentesis Indication: ascites
[2018-04-28] MEDS ORDERED: Furosemide 40 MG Tab PO SCH (09:00)
== END 2018-04-27 15:22 | disposition home or self-care (01) | DRG 432 ==
LOC: JD.ED 17:01 → JD.MS 21:45
PROVIDERS: ADMIT Internal Medicine Cardiovascular Disease; ATTEND Internal Medicine Cardiovascular Disease
PROC: 0W9G3ZZ Drainage of Peritoneal Cavity, Percutaneous Approach (ICD-10-PCS; principal; 2018-04-20)
PROC: 0W9B3ZZ Drainage of Left Pleural Cavity, Percutaneous Approach (ICD-10-PCS; 2018-04-21)
DX: K74.69 Other cirrhosis of liver (principal); K65.2 Spontaneous bacterial peritonitis; K72.00 Acute and subacute hepatic failure without coma; K76.7 Hepatorenal syndrome; J91.8 Pleural effusion in other conditions classified elsewhere; E87.2 Acidosis; E46 Unspecified protein-calorie malnutrition; E26.9 Hyperaldosteronism, unspecified; E87.6 Hypokalemia; I10 Essential (primary) hypertension; M48.02 Spinal stenosis, cervical region; F32.9 Major depressive disorder, single episode, unspecified; F43.10 Post-traumatic stress disorder, unspecified; K75.81 Nonalcoholic steatohepatitis (NASH); E83.42 Hypomagnesemia; E66.9 Obesity, unspecified; Z68.38 Body mass index [BMI] 38.0-38.9, adult; Z88.8 Allergy status to other drugs, medicaments and biological substances; Z79.899 Other long term (current) drug therapy; R19.7 Diarrhea, unspecified; M41.20 Other idiopathic scoliosis, site unspecified; G89.4 Chronic pain syndrome
CPT/HCPCS: 36415; 49082; 71045; 71045-26; 71046; 71046-26; 74019; 74019-26; 74176; 74176-26; 76942; 80048; 80053; 81001; 82140; 83605; 83690; 83735; 83880; 84439; 84443; 85007; 85025; 85027; 85610; 85652; 85730; 86140; 87040; 87070; 87184; 87205; 87493; 89050; 93306; 96361; 96365; 96375; 97110-GO; 97110-GP; 97116-GP; 97162-GP; 97166-GO; 97530-GO; 97535-GO; 99284-25; 99285; A9270-GY; C1729; J0696; J1170; J1644; J1940; J1956; J2001; J2060; J2250; J2405; J2765; J3480; J3490; J7030; J7042